=== PATIENT | male | born 1950 | race Caucasian/White ===

== ENCOUNTER 2018-11-06 12:06 | Inpatient (IN) | payer MEDICARE, BC ==
--- OUTSIDE RECORDS SUMMARY | 2018-11-06 12:32 | XMS REPORT | Continuity of Care Document ---
:1950 External Reference #:[id number] Author Name Covert, Shannon Care Team Providers Name Role Phone Gurpreet Gray D.O. Primary Care Physician Unavailable Payers Date Identification Numbers Payment Provider Subscriber Policy Number: [id number] Medicare Jayesh Wesley PayID: [id number] [address] [place] [address] Policy Number: [id number] [facility] Kori Wesley PayID: [id number] [address] [place] [address] Advance Directives Description No Information Available Problems Date Description Provider Status Onset: 11/20/2012 Aortic valve disorder Piedad Rosario D.O. Active Onset: 11/20/2012 Heart murmur [facility] Schedule Active Onset: 01/10/2013 Postsurgical Status Other Piedad Rosario D.O. Active Onset: 01/10/2013 Difficulty breathing [facility] Schedule Active Onset: 09/26/2013 Benign essential hypertension Juan Jose Gonsalez M.D. Active Onset: 09/26/2013 Dyspnea Juan Jose Gonsalez M.D. Active Onset: 09/26/2013 Preoperative cardiovascular Juan Jose Gonsalez M.D. Active examination Onset: 01/27/2015 Obstructive sleep apnea syndrome Colleen Mercado MD Active Onset: 01/27/2015 Morbid obesity Colleen Mercado MD Active Onset: 10/08/2015 Localized, primary osteoarthritis Madeline Fernandes M.D. Active Onset: 10/08/2015 Localized, primary osteoarthritis Madeline Fernandes M.D. 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 One has RA. Social History Type Date Description Comments Sex Unknown Marital Status Lives With Occupation [employer] Tobacco Use Start: Unknown Never Smoked Cigarettes Smoking Status Reviewed: 11/05/18 Never Smoked Cigarettes ETOH Use Denies alcohol use -Former alcoholic, quit drinking in 1980 Tobacco Use Start: Unknown Patient has never smoked Recreational Drug Use Denies Drug Use Exercise Type/Frequency Exercises regularly Exercise Type/Frequency [employer] Allergies, Adverse Reactions, Alerts Date Description Reaction Status Severity Comments 11/20/2012 Penicillins Active 10/12/2015 Surgical Mesh Active reaction to mesh 12/26/2017 Adhesive Active 06/21/2018 Torsemide prevent urination Active Medications Medication Date Status Form Strength Qnty SIG Indications Ordering Provider Xarelto 10/28 Active Tablets 20mg 90tab 1 by mouth Efren DBlanca /2018 s every day Greyson Bowman Flecainide 02/25 Active Tablets 50mg 180ta 1 by mouth Efren DBlanca Acetate bs twice a day Greyson Bowman Furosemide 02/22 Active Tablets 20mg 30tab 1 by mouth Joanna s every day Tashia, as needed M.DBlanca for weight gain greater than 2 lb over night or 5lbs in 5 days. Vitamin B 01/26 Active Tablets 1 by mouth Unknown every day Vitamin D 01/26 Active Capsules 2000Unit 1 by mouth every day Clindamycin HCL 05/28 Active Capsules 300mg 2caps 2 tabs 30-60 Piedad /2012 min prior Marlene to dental D.O. work Multivitamins 11/20 Active Tablets 90tab 1 po qd Other /2012 s Ordering Provider Testosterone 11/20 Active Oil 100mg/ml 10ml 2 ml every 3 Other Cyp /2012 weeks. Ordering Provider Bipap Active hs Unknown / Omeprazole Active Capsules 40mg 1 cap po [place], DR daily Gurpreet Womack D.O. Tamsulosin HCL Active Capsules 0.4mg 1 tablet po Husseini, /0000 daily MD Chance Metoprolol Active Tablets 100mg 1 by mouth Unknown Succinate ER / ER 24HR every day Ramipril Active Capsules 10mg 1 by mouth Unknown /0000 every day Clindamycin HCL 10/28 Hx Capsules 150mg 9caps one capsule Efren D by mouth Brand, - three times M.D. 11/05 a day for days Torsemide 02/20 Hx Tablets 10mg 30tab 1 by mouth Chirag s every day Joan Bryan, - Prn for M.D. 02/22 weight gain greater than 2 lb over night or 5lbs in 5 days. Metoprolol 01/23 Hx Tablets 50mg 90tab take one Qutaybeh Succinate ER 24HR s tablet by S. - mouth every haydah, 10/14 day M.D. Cyclobenzaprine 11/21 Hx Tablets 10mg 90tab 1 tablet by [id number] Sarah HCL s mouth every Bordoni, - 8 hours as [employer] 05/08 needed for pain. Lovenox 11/04 Hx Solution 30mg/0.3M 28uni 1 injection . L ts subcutaneous Bordoni, - every 24 [employer] 05/08 hours directed Percocet 11/04 Hx Tablets 5-325mg 60tab 1-2 tablets . Madeline s by mouth Dom, - every 8 M.D. 04/09 hours needed for pain Colace 11/04 Hx Capsules 100mg 90cap 1 by mouth . s up to 3 Bordoni, - times a day [employer] 05/08 as needed for constipation . Oxygen 04/13 Hx Misc 1unit Discontinue s o2 at night MD Rogelio - 05/08 Metoprolol 07/01 Hx Tablets 100mg 90tab Take 1/2 Qutaybeh Succinate ER ER 24HR s Tablet By S. - Mouth Daily. Wallace, 01/23 M.D. Diltiazem HCL ER 04/29 Hx Caps ER 120mg 90cap 1 by mouth Qutayb 12HR s every day SBlanca Gonsalez, 10/14 M.D. Diltiazem CD 07/08 Hx Caps ER 120mg 30cap 1 po qd 24HR s Ordering - Provider 04/29 Krill Oil 04/02 Hx Capsules 300mg Other [place]-3 Ordering - Provider 06/27 [place]-E 04/02 Hx Tablets 400mg 1 po qd Ordering - Provider 05/08 Metoprolol 04/02 Hx Tablets 100mg 90tab 1 po daily. Piedad Succinate ER 24HR Alma Delia Fleming.O. 07/01 Aspirin 01/29 Hx Tablets 325mg 30tab 1 po qd Alma Delia Morales.O. 11/24 Metoprolol 01/29 Hx Tablets 100mg 30tab 1 tablet by Piedad William ER 24HR s mouth daily Alma Delia Rosario.O. 04/02 Metoprolol 01/10 Hx Tablets 50mg 1 po bid Other Tar Ordering - Provider 01/29 Diclofenac 01/10 Hx Tablets 75mg 60tab 1 tab by Sheron Espino DR DR moya mouth twice Ordering - a day prn Provider 11/23 Furosemide 01/10 Hx Tablets 40mg 10tab 1 tablets by Piedad s mouth every Marlene, - other day D.O. 01/29 Ibuprofen 11/20 Hx Tablets 800mg 90tab po tid prn Other s Ordering - Provider 01/29 Metoprolol 11/20 Hx Tablets 25mg 30tab 1 po qd Piedad Succinate ER ER 24HR Alma Delia FlemingO. 01/10 Fish Oil Hx Capsules 1000mg 1 daily Unknown /0000 - 04/02 Aspirin Hx Chewtabs 81mg 1 by mouth Unknown /0000 every day ( - On Hold) 05/08 Celecoxib Hx Capsules 200mg once daily Unknown - Colace Hx Unknown / - 06/08 Pradaxa Hx Capsules 150mg 1 cap by Unknown /0000 mouth twice - a day 10/14 Colchicine Hx Tablets 0.6mg take 2 tabs Unknown /0000 by mouth - once then 11/05 take aditional tab1 hour later as needed. Medications Administered in Office Medication Date Status Form Strength Qnty SIG Indications Ordering Provider Depomedrol Administered Injection Roula 40MG 018 Deonte, RPA-C Depomedrol Administered Injection Madeline 40MG 016 Greyson Fernandes Depomedrol Administered Injection Madeline 40MG 016 Greyson Fernandes Immunizations Description No Information Available Vital Signs Date Vital Result Comment 11/05/2018 12:58pm Height 67 inches 5'7" Weight 266.00 lb with shoes Heart Rate 60 /min BP Systolic Sitting 130 mmHg Rue, large cuff BP Diastolic Sitting 78 mmHg Rue, large cuff Respiratory Rate 16 /min BMI (Body Mass Index) 41.7 kg/m2 10/15/2018 1:49pm Height 67 inches 5'7" Weight 257.50 lb with shoes Heart Rate 64 /min BP Systolic Sitting 110 mmHg Lue, large cuff BP Diastolic Sitting 70 mmHg Lue, large cuff Respiratory Rate 16 /min BMI (Body Mass Index) 40.3 kg/m2 Ejection Fraction 55-60% echo 03/09/2017 07/31/2018 1:27pm Height 67 inches 5'7" Weight 257.00 lb Heart Rate 58 /min BP Systolic Sitting 125 mmHg LA BP Diastolic Sitting 80 mmHg LA BMI (Body Mass Index) 40.2 kg/m2 06/21/2018 11:07am Height 67 inches 5'7" Weight 250.00 lb Heart Rate 56 /min regular BP Systolic Sitting 115 mmHg LA reg cuff BP Diastolic Sitting 70 mmHg LA reg cuff BP Systolic Standing 110 mmHg LA reg cuf BP Diastolic Standing 70 mmHg LA reg cuf Respiratory Rate 18 /min BMI (Body Mass Index) 39.2 kg/m2 05/16/2018 11:39am Height 67 inches 5'7" Weight 250.25 lb Heart Rate 66 /min BP Systolic Sitting 112 mmHg Rue large cuff BP Diastolic Sitting 66 mmHg Rue large cuff Respiratory Rate 18 /min O2 % BldC Oximetry 96 % On Ra BMI (Body Mass Index) 39.2 kg/m2 04/18/2018 11:06am Height 67 inches 5'7" Weight 253.00 lb BP Systolic 124 mmHg BP Diastolic 77 mmHg Respiratory Rate 16 /min Pain Level 5 BMI (Body Mass Index) 39.6 kg/m2 04/18/2018 11:03am Height 67 inches 5'7" 04/03/2018 2:52pm Height 67 inches 5'7" Weight 253.75 lb Heart Rate 80 /min BP Systolic 134 mmHg BP Diastolic 60 mmHg BMI (Body Mass Index) 39.7 kg/m2 Ejection Fraction 55-60% echo 03/09/17 02/05/2018 1:03pm Height 67 inches 5'7" Weight 252.00 lb w/ shoes Heart Rate 74 /min BP Systolic Sitting 126 mmHg lue lg cuff BP Diastolic Sitting 82 mmHg lue lg cuff BMI (Body Mass Index) 39.5 kg/m2 12/26/2017 10:36am Height 67 inches 5'7" Weight 253.00 lb without shoes Heart Rate 60 /min BP Systolic Sitting 136 mmHg Lue lrg cuff BP Diastolic Sitting 80 mmHg Lue lrg cuff BP Systolic Standing 134 mmHg Lue lrg cuff BP Diastolic Standing 80 mmHg Lue lrg cuff Respiratory Rate 18 /min BMI (Body Mass Index) 39.6 kg/m2 Ejection Fraction 55-60% 03/09/2017 10/15/2017 3:46pm Height 67 inches 5'7" Weight 248.00 lb w/shoes Heart Rate 66 /min BP Systolic Sitting 110 mmHg LA lg cuff BP Diastolic Sitting 70 mmHg LA lg cuff BMI (Body Mass Index) 38.8 kg/m2 Ejection Fraction 55-60% Echo 03/09/17 07/27/2017 4:30pm Height 67 inches 5'7" Weight 269.75 lb Heart Rate 64 /min BP Systolic Sitting 144 mmHg LA, large BP Diastolic Sitting 86 mmHg LA, large BMI (Body Mass Index) 42.2 kg/m2 Ejection Fraction 55%-60% 03/09/17 echo 07/27/2017 4:26pm Height 67 inches 5'7" Weight 269.00 lb w/ shoes Respiratory Rate 16 /min BMI (Body Mass Index) 42.1 kg/m2 Ejection Fraction 55-60% as of 03/09/17 echo 07/17/2017 10:58am Height 67 inches 5'7" Weight 267.00 lb Heart Rate 69 /min BP Systolic Sitting 118 mmHg Lue large cuff BP Diastolic Sitting 82 mmHg Lue large cuff BP Systolic Standing 104 mmHg Lue BP Diastolic Standing 80 mmHg Lue Respiratory Rate 16 /min BMI (Body Mass Index) 41.8 kg/m2 Ejection Fraction 55-60% 03/09/17 05/10/2017 11:27am Height 67 inches 5'7" Weight 262.00 lb w/ shoes Heart Rate 64 /min reg BP Systolic Sitting 114 mmHg Lue, lg cuff BP Diastolic Sitting 70 mmHg Lue, lg cuff Respiratory Rate 16 /min O2 % BldC Oximetry 93 % on Ra BMI (Body Mass Index) 41.0 kg/m2 01/23/2017 3:47pm Height 67 inches 5'7" Weight 257.00 lb with shoes Heart Rate 80 /min BP Systolic Sitting 120 mmHg LA lrg cuff BP Diastolic Sitting 82 mmHg LA lrg cuff BMI (Body Mass Index) 40.2 kg/m2 Ejection Fraction 55% - 60% echo 06/27/16 07/12/2016 3:13pm Height 67 inches 5'7" Heart Rate 69 /min BP Systolic Sitting 126 mmHg BP Diastolic Sitting 68 mmHg Respiratory Rate 16 /min O2 % BldC Oximetry 97 % 06/09/2016 1:59pm Height 67 inches 5'7" Weight 266.00 lb with shoes Heart Rate 70 /min BP Systolic Sitting 138 mmHg LA lrg cuff BP Diastolic Sitting 82 mmHg LA lrg cuff BMI (Body Mass Index) 41.7 kg/m2 Ejection Fraction 55% - 60% echo 12/01/14 05/15/2016 10:31am Heart Rate 58 /min BP Systolic 130 mmHg BP Diastolic 82 mmHg Pain Level 8 05/09/2016 1:10pm Height 67 inches 5'7" Weight 263.12 lb Heart Rate 89 /min BP Systolic Sitting 134 mmHg BP Diastolic Sitting 76 mmHg Respiratory Rate 16 /min O2 % BldC Oximetry 97 % BMI (Body Mass Index) 41.2 kg/m2 02/04/2016 11:32am Height 67 inches 5'7" Weight 266.00 lb Pain Level 8 BMI (Body Mass Index) 41.7 kg/m2 12/31/2015 11:41am Height 67 inches 5'7" Weight 266.00 lb Pain Level 2 BMI (Body Mass Index) 41.7 kg/m2 12/06/2015 11:09am Height 67 inches 5'7" Weight 266.00 lb Pain Level 5 0 in hip, 5 in groin BMI (Body Mass Index) 41.7 kg/m2 12/01/2015 10:52am Height 67 inches 5'7" Weight 266.00 lb Pain Level 4 BMI (Body Mass Index) 41.7 kg/m2 11/22/2015 2:04pm Height 67 inches 5'7" Weight 266.00 lb Body Temperature 99.0 F Pain Level 5 BMI (Body Mass Index) 41.7 kg/m2 11/05/2015 10:47am Height 67 inches 5'7" Weight 266.00 lb Heart Rate 58 /min BP Systolic Sitting 109 mmHg BP Diastolic Sitting 69 mmHg Pain Level 5 BMI (Body Mass Index) 41.7 kg/m2 10/12/2015 9:31am Height 67 inches 5'7" Weight 266.75 lb with shoes Heart Rate 60 /min BP Systolic Sitting 130 mmHg LA lg cuff BP Diastolic Sitting 84 mmHg LA lg cuff Respiratory Rate 16 /min BMI (Body Mass Index) 41.8 kg/m2 Ejection Fraction 55-60% date 12/01/14 ECHO 10/08/2015 2:20pm Height 67 inches 5'7" Weight 265.00 lb Heart Rate 62 /min BP Systolic 100 mmHg BP Diastolic 60 mmHg BMI (Body Mass Index) 41.5 kg/m2 06/28/2015 2:36pm Height 67 inches 5'7" Weight 263.75 lb Heart Rate 62 /min BP Systolic Sitting 132 mmHg LA, reg BP Diastolic Sitting 90 mmHg LA, reg BMI (Body Mass Index) 41.3 kg/m2 Ejection Fraction 55%-60% 12/01/14 echo 05/10/2015 1:10pm Height 67 inches 5'7" Weight 261.00 lb Heart Rate 61 /min BP Systolic 110 mmHg BP Diastolic 72 mmHg Respiratory Rate 12 /min O2 % BldC Oximetry 97 % BMI (Body Mass Index) 40.9 kg/m2 02/26/2015 11:29am Height 67 inches 5'7" Weight 271.00 lb Heart Rate 86 /min BP Systolic 124 mmHg BP Diastolic 90 mmHg Respiratory Rate 16 /min O2 % BldC Oximetry 98 % BMI (Body Mass Index) 42.4 kg/m2 Neck Circumference in inches 19.75 01/27/2015 11:49am Height 67 inches 5'7" Weight 271.12 lb Heart Rate 73 /min BP Systolic Sitting 138 mmHg BP Diastolic Sitting 82 mmHg Respiratory Rate 20 /min Body Temperature 98.5 F O2 % BldC Oximetry 98 % BMI (Body Mass Index) 42.5 kg/m2 Neck Circumference in [facility] 19.75 12/24/2014 10:30am Height 67 inches 5'7" Weight 276.00 lb w/shoes Heart Rate 66 /min BP Systolic Sitting 126 mmHg LA lg cuff BP Diastolic Sitting 84 mmHg LA lg cuff Respiratory Rate 12 /min BMI (Body Mass Index) 43.2 kg/m2 Ejection Fraction 55-60 echo 12/01/14 11/24/2014 2:37pm Height 67 inches 5'7" Weight 275.75 lb w/shoes Heart Rate 64 /min BP Systolic Sitting 136 mmHg LA lg cuff BP Diastolic Sitting 88 mmHg LA lg cuff Respiratory Rate 12 /min BMI (Body Mass Index) 43.2 kg/m2 04/29/2014 2:18pm Height 67 inches 5'7" Weight 292.25 lb Heart Rate 74 /min BP Systolic Sitting 132 mmHg reg, left BP Diastolic Sitting 78 mmHg reg, left BMI (Body Mass Index) 45.8 kg/m2 09/26/2013 10:19am Height 67 inches 5'7" Weight 285.00 lb Heart Rate 84 /min BP Systolic Sitting 132 mmHg BP Diastolic Sitting 90 mmHg BMI (Body Mass Index) 44.6 kg/m2 07/17/2013 3:03pm Height 67 inches 5'7" Weight 289.00 lb Heart Rate 72 /min BP Systolic 142 mmHg BP Diastolic 90 mmHg BMI (Body Mass Index) 45.3 kg/m2 04/02/2013 11:30am Height 67 inches 5'7" Weight 269.00 lb Heart Rate 76 /min Regular BP Systolic Sitting 100 mmHg BP Diastolic Sitting 80 mmHg BMI (Body Mass Index) 42.1 kg/m2 01/29/2013 11:46am Height 67 inches 5'7" Weight 266.50 lb Heart Rate 68 /min Regular BP Systolic Sitting 102 mmHg BP Diastolic Sitting 68 mmHg BMI (Body Mass Index) 41.7 kg/m2 01/10/2013 1:59pm Height 67 inches 5'7" Weight 261.25 lb Heart Rate 68 /min Regular BP Systolic Sitting 104 mmHg BP Diastolic Sitting 74 mmHg BMI (Body Mass Index) 40.9 kg/m2 11/20/2012 9:53am Height 67 inches 5'7" Weight 289.25 lb Heart Rate 76 /min Irregular BP Systolic Sitting 140 mmHg BP Diastolic Sitting 80 mmHg BMI (Body Mass Index) 45.3 kg/m2 Results Test Date Facility Test Result H/L Range Note Pre Cath 10/24/2018 [facility] Partial 37.4 seconds High 26.0- 36.[address] [place] [address] PTT [phone] CBC Auto 10/24/2018 [facility] White Blood 8.0 10^3/uL N 3.5- 10.[address] [place] [address] [phone] Red Blood Count 5.66 10^6/uL High 4.18-5.48 Hemoglobin 16.9 g/dL N 14.0-18.0 Hematocrit 49 % High 36-46 Mean Corpuscular Volume 87 fL N 80-94 Mean Corpuscular Hemoglobin 30 pg N 27-31 Mean Corpuscular HGB Conc 34 g/dL N 31-36 Red Cell Distribution Width 14 % N 10.5-15 Platelet Count 190 10^3/uL N 150-450 Mean Platelet Volume 7.3 fL Low 7.4-10.4 Abs Neutrophils 5.8 10^3/uL N 1.5-7.7 Abs Lymphocytes 1.4 10^3/uL N 1.0-4.8 Abs Monocytes 0.7 10^3/uL N 0-0.8 Abs Eosinophils 0.1 10^3/uL N 0-0.6 Abs Basophils 0 10^3/uL N 0-0.2 Abs Nucleated RBC 0 10^3/uL Granulocyte % 72.4 % Lymphocyte % 17.4 % Monocyte % 8.2 % Eosinophil % 1.5 % Basophil % 0.5 % Nucleated Red Blood Cells % 0.1 Inr/Protime 10/24/2018 [facility] Inr 1.02 N 0.77-1.[address] [place] [address] [phone] Basic Metabolic 10/24/2018 [facility] Sodium 136 mmol/L N 135- [address] [place] [address] [phone] Potassium 4.3 mmol/L N 3.5-5.0 Chloride 104 mmol/L N 101-111 Co2 Carbon Dioxide 22 mmol/L N 22-32 Anion Gap 10 mmol/L N 2-11 Glucose 87 mg/dL N 70-100 Blood Urea Nitrogen 25 mg/dL High 6-24 Creatinine 1.04 mg/dL N 0.67-1.17 BUN/Creatinine Ratio 24.0 High 8-20 Calcium 9.2 mg/dL N 8.6-10.3 Egfr Non- 71.2 >60 Egfr 86.2 >60 1 CBC Auto Diff 02/25/2018 [facility] White Blood 6.9 10^3/uL N 3.5-10.[address] [place] [address] [phone] Red Blood Count 5.84 10^6/uL High 4.00-5.40 Hemoglobin 17.5 g/dL N 14.0-18.0 Hematocrit 52 % N 42-52 Mean Corpuscular Volume 88 fL N 80-94 Mean Corpuscular Hemoglobin 30 pg N 27-31 Mean Corpuscular HGB Conc 34 g/dL N 31-36 Red Cell Distribution Width 14 % N 10.5-15 Platelet Count 170 10^3/uL N 150-450 Mean Platelet Volume 7.5 um3 N 7.4-10.4 Abs Neutrophils 4.9 10^3/uL N 1.5-7.7 Abs Lymphocytes 1.3 10^3/uL N 1.0-4.8 Abs Monocytes 0.6 10^3/uL N 0-0.8 Abs Eosinophils 0.1 10^3/uL N 0-0.6 Abs Basophils 0.1 10^3/uL N 0-0.2 Abs Nucleated RBC 0 10^3/uL Granulocyte % 70.6 % N 38-83 Lymphocyte % 18.4 % Low 25-47 Monocyte % 9.0 % High 0-7 Eosinophil % 1.0 % N 0-6 Basophil % 1.0 % N 0-2 Nucleated Red Blood Cells % 0.1 Laboratory test 02/25/2018 [facility] B-Type 55 pg/mL [address] [place] [address] Peptide BNP [phone] Basic Metabolic 02/25/2018 [facility] Sodium 139 mmol/L N 135- [address] [place] [address] [phone] Potassium 4.0 mmol/L N 3.5-5.0 Chloride 105 mmol/L N 101-111 Co2 Carbon Dioxide 26 mmol/L N 22-32 Anion Gap 8 mmol/L N 2-11 Glucose 103 mg/dL High 70-100 Blood Urea Nitrogen 23 mg/dL N 6-24 Creatinine 1.00 mg/dL N 0.67-1.17 BUN/Creatinine Ratio 23.0 High 8-20 Calcium 9.5 mg/dL N 8.6-10.3 Egfr Non- 74.8 >60 Egfr 90.5 >60 3 Laboratory test 02/21/2018 [facility] B-Type <pending> finding [address] [place] [address] Peptide BNP [phone] Laboratory test 07/17/2017 [facility] Magnesium 2.0 mg/dL N 1.9-[address] [place], [place] [id number] [phone] CBC Auto Diff 07/17/2017 [facility] White Blood Count 8.1 10^3/ uL N 3.5-[address] [place] [address] [phone] Red Blood Count 6.09 10^6/uL High 4.0-5.4 Hemoglobin 18.0 g/dL N 14.0-18.0 Hematocrit 53 % High 42-52 Mean Corpuscular Volume 87 fL N 80-94 Mean Corpuscular Hemoglobin 30 pg N 27-31 Mean Corpuscular HGB Conc 34 g/dL N 31-36 Red Cell Distribution Width 14 % N 10.5-15 Platelet Count 168 10^3/uL N 150-450 Mean Platelet Volume 8 um3 N 7.4-10.4 Abs Neutrophils 5.6 10^3/uL N 1.5-7.7 Abs Lymphocytes 1.7 10^3/uL N 1.0-4.8 Abs Monocytes 0.7 10^3/uL N 0-0.8 Abs Eosinophils 0.1 10^3/uL N 0-0.6 Abs Basophils 0.1 10^3/uL N 0-0.2 Abs Nucleated RBC 0.01 10^3/uL Granulocyte % 68.6 % N 38-83 Lymphocyte % 20.7 % Low 25-47 Monocyte % 8.8 % N 1-9 Eosinophil % 1.0 % N 0-6 Basophil % 0.9 % N 0-2 Nucleated Red Blood Cells % 0.1 Thyroid Panel 07/17/2017 [facility] Free T4 (Free 0.79 ng/dL N 0.61-1.12 [facility] Thyroxine) [place] [address] [phone] Thyroxine 6.29 g/mL N 6.09-12.23 TSH (Thyroid Stim Horm) 3.09 mcIU/mL N 0.34-5.60 Laboratory test 07/17/2017 [facility] Uric Acid 7.3 mg/dL N 4.4-7.6 finding [address] [place] [address] [phone] Basic Metabolic 07/17/2017 [facility] Potassium 4.1 mmol/L N 3.5-5.0 Panel [address] [place] [address] [phone] Chloride 102 mmol/L N 101-111 Co2 Carbon Dioxide 26 mmol/L N 22-32 Glucose 76 mg/dL N 70-100 Blood Urea Nitrogen 9 mg/dL N 6-24 Creatinine 0.99 mg/dL N 0.67-1.17 BUN/Creatinine Ratio 9.1 N 8-20 Calcium 9.0 mg/dL N 8.6-10.3 Egfr Non- 75.9 >60 Egfr 97.6 >60 4 Sodium 137 mmol/L N 133-145 Anion Gap 9 mmol/L N 2-11 Type & Screen 11/05/2015 [facility] Patient Blood Type A Positive N [address] [place] [address] [phone] Antibody Screen NEGATIVE N Comp Metabolic Panel 11/05/2015 [facility] Sodium 135 mmol/L N 133-145 [address] [place] [address] [phone] Potassium 3.9 mmol/L N 3.5-5.0 Chloride 101 mmol/L N 101-111 Co2 Carbon Dioxide 26 mmol/L N 22-32 Anion Gap 8 mmol/L N 2-11 Glucose 91 mg/dL N 70-100 Blood Urea Nitrogen 12 mg/dL N 6-24 Creatinine 0.97 mg/dL N 0.67-1.17 BUN/Creatinine Ratio 12.4 N 8-20 Calcium 9.3 mg/dL N 8.6-10.3 Total Protein 6.7 g/dL N 6.4-8.9 Albumin 4.5 g/dL N 3.2-5.2 Globulin 2.2 g/dL N 2-4 Albumin/Globulin Ratio 2.0 N 1-3 Total Bilirubin 1.10 mg/dL High 0.2-1.0 Alkaline Phosphatase 55 U/L N 34-104 Alt 44 U/L N 7-52 Ast 30 U/L N 13-39 Egfr Non- 77.9 N >60 Egfr 100.2 N >60 5 Laboratory test 11/05/2015 [facility] Partial 37.2 High 26.0- 36.[address] [address] PTT [phone] Inr/Protime 11/05/2015 [facility] Inr 1.05 N 0.89-1.[address] [place] [address] [phone] CBC No Diff 11/05/2015 [facility] White Blood 7.6 10^3/uL N 3.5-10.[address] [place] [address] [phone] Red Blood Count 6.03 10^6/uL High 4.0-5.4 Hemoglobin 17.5 g/dL N 14.0-18.0 Hematocrit 54 % High 42-52 Mean Corpuscular Volume 90 fL N 80-94 Mean Corpuscular Hemoglobin 29 pg N 27-31 Mean Corpuscular HGB Conc 32 g/dL N 31-36 Red Cell Distribution Width 15 % N 10.5-15 Platelet Count 186 10^3/uL N 150-450 Mean Platelet Volume 8 um3 N 7.4-10.4 Arterial Blood Gas 11/22/2012 [facility] PH Arterial 7.37 7.35-7.[address] [place] [address] [phone] Pco2 Arterial 44 mmHg 35-45 Po2 Arterial 33 mmHg Low 80-100 O2 Saturation Arterial 69.7 % Low 95-98 Base Excess Arterial -0.3 -2.0-2.0 6 Hco3 Arterial 23.7 mmol/L Arterial Blood Gas 11/22/2012 [facility] PH Arterial 7.40 7.35-7.[address] [place] [address] [phone] Pco2 Arterial 36 mmHg 35-45 Po2 Arterial 73 mmHg Low 80-100 O2 Saturation Arterial 96.9 % 95-98 Base Excess Arterial -1.9 -2.0-2.0 7 Hco3 Arterial 23.3 mmol/L Cath Panel 11/21/2012 [facility] Activated 37.9 High 22.18- 37.[address] [place] [address] Thrombo Time [phone] Inr/Protime 11/21/2012 [facility] Inr 0.94 0.87-0.[address] [place] [address] [phone] Basic 11/21/2012 [facility] Sodium 137 mmol/L 133-[address] [place] [address] [phone] Potassium 4.4 mmol/L 3.5-5.0 Chloride 104 mmol/L 101-111 Co2 Carbon Dioxide 27.0 mmol/L 22-32 Anion Gap 6.0 mmol/L 2-11 Glucose 117 mg/dL High 70-100 Blood Urea Nitrogen 18 mg/dL 6-24 Creatinine 1.00 mg/dL 0.50-1.40 BUN/Creatinine Ratio 18.0 8-20 Calcium 9.4 mg/dL 8.1-9.9 Egfr Non- 76.0 >60 Egfr 97.7 >60 8 CBC With 11/21/2012 [facility] White Blood 5.2 10^3/uL 4.8- 10.8 Manual Diff [address] [place] [address] [phone] Red Blood Count 5.33 10^6/uL 4.0-5.4 Hemoglobin 16.3 g/dL 14.0-18.0 Hematocrit 49 % 42-52 Mean Corpuscular Volume 92 fL 80-94 Mean Corpuscular Hemoglobin 31 pg 27-31 Mean Corpuscular HGB Conc 33 g/dL 31-36 Red Cell Distribution Width 14 % 10.5-15 Platelet Count 185 10^3/uL 150-450 Mean Platelet Volume 7 um3 Low 7.4-10.4 Abs Neutrophils 3.3 10^3/uL 1.5-7.7 Abs Lymphocytes 1.1 10^3/uL 1.0-4.8 Abs Monocytes 0.6 10^3/uL 0-0.8 Abs Eosinophils 0.1 10^3/uL 0-0.6 Abs Basophils 0.1 10^3/uL 0-0.2 Abs Nucleated RBC 0 10^3/uL Neutrophil % 65 % 38-83 Lymphocytes % 26 % 25-47 Monocytes % 6 % 0-13 Eosinophils % 2 % 0-6 Reactive Lymph % 1 % 0-6 RBC Morphology Normal Normal 1 Because ethnic data is not always readily available, this report includes an eGFR for both -Americans and non- Americans. The National Kidney Disease Education Program (NKDEP) does not endorse the use of the MDRD equation for patients that are not between the ages of 18 and 70, are , have extremes of body size, muscle mass, or nutritional status, or are non- or non-. According to the National Kidney Foundation, irrespective of diagnosis, the stage of the disease is based on the level of kidney function: Stage Description GFR(mL/min/1.73 m(2)) 1 Kidney damage with normal or decreased GFR 90 2 Kidney damage with mild decrease in GFR 60-89 3 Moderate decrease in GFR 30-59 4 Severe decrease in GFR 15-29 5 Kidney failure <15 (or dialysis) 2 >100 to <200 pg/mL: likely compensated congestive heart failure (CHF) 200 to 400 pg/mL: likely moderate CHF >400 pg/mL: likely moderate to severe CHF 3 Because ethnic data is not always readily available, this report includes an eGFR for both -Americans and non- Americans. The National Kidney Disease Education Program (NKDEP) does not endorse the use of the MDRD equation for patients that are not between the ages of 18 and 70, are , have extremes of body size, muscle mass, or nutritional status, or are non- or non-. According to the National Kidney Foundation, irrespective of diagnosis, the stage of the disease is based on the level of kidney function: Stage Description GFR(mL/min/1.73 m(2)) 1 Kidney damage with normal or decreased GFR 90 2 Kidney damage with mild decrease in GFR 60-89 3 Moderate decrease in GFR 30-59 4 Severe decrease in GFR 15-29 5 Kidney failure <15 (or dialysis) 4 Because ethnic data is not always readily available, this report includes an eGFR for both -Americans and non- Americans. The National Kidney Disease Education Program (NKDEP) does not endorse the use of the MDRD equation for patients that are not between the ages of 18 and 70, are , have extremes of body size, muscle mass, or nutritional status, or are non- or non-. According to the National Kidney Foundation, irrespective of diagnosis, the stage of the disease is based on the level of kidney function: Stage Description GFR(mL/min/1.73 m(2)) 1 Kidney damage with normal or decreased GFR 90 2 Kidney damage with mild decrease in GFR 60-89 3 Moderate decrease in GFR 30-59 4 Severe decrease in GFR 15-29 5 Kidney failure <15 (or dialysis) 5 Because ethnic data is not always readily available, this report includes an eGFR for both -Americans and non- Americans. The National Kidney Disease Education Program (NKDEP) does not endorse the use of the MDRD equation for patients that are not between the ages of 18 and 70, are , have extremes of body size, muscle mass, or nutritional status, or are non- or non-. According to the National Kidney Foundation, irrespective of diagnosis, the stage of the disease is based on the level of kidney function: Stage Description GFR(mL/min/1.73 m(2)) 1 Kidney damage with normal or decreased GFR 90 2 Kidney damage with mild decrease in GFR 60-89 3 Moderate decrease in GFR 30-59 4 Severe decrease in GFR 15-29 5 Kidney failure <15 (or dialysis) 6 Reference ranges based on room air. 7 Reference ranges based on room air. 8 Because ethnic data is not always readily available, this report includes an eGFR for both -Americans and non- Americans. The National Kidney Disease Education Program (NKDEP) does not endorse the use of the MDRD equation for patients that are not between the ages of 18 and 70, are , have extremes of body size, muscle mass, or nutritional status, or are non- or non-. According to the National Kidney Foundation, irrespective of diagnosis, the stage of the disease is based on the level of kidney function: Stage Description GFR(mL/min/1.73 m(2)) 1 Kidney damage with normal or decreased GFR 90 2 Kidney damage with mild decrease in GFR 60-89 3 Moderate decrease in GFR 30-59 4 Severe decrease in GFR 15-29 5 Kidney failure <15 (or dialysis) Procedures Date Code Description Status 10/28/2018 05561 Moderate Sedation Services; Same Phys Intl 15 Mins; PT >=5 Completed Years 10/28/2018 21630 Perm Pacemaker Av Sequential Atrial And Ventricular Completed 10/15/2018 82268 EKG Tracing & Interpretation Completed 09/03/2018 67928 Implantable Cardio System Loop Recorder Sys Remota Data Completed Acquistio 09/03/2018 50126 Interrogation Dev Loop Recorder Incl Physician Completed Analysis,Rev,Repor 08/03/2018 11235 Implantable Cardio System Loop Recorder Sys Remota Data Completed Acquistio 08/03/2018 40129 Interrogation Dev Loop Recorder Incl Physician Completed Analysis,Rev,Repor 07/03/2018 77945 Implantable Cardio System Loop Recorder Sys Remota Data Completed Acquistio 07/03/2018 24300 Interrogation Dev Loop Recorder Incl Physician Completed Analysis,Rev,Repor 06/21/2018 80875 EKG Tracing & Interpretation Completed 06/02/2018 01049 Implantable Cardio System Loop Recorder Sys Remota Data Completed Acquistio 06/02/2018 06425 Interrogation Dev Loop Recorder Incl Physician Completed Analysis,Rev,Repor 05/02/2018 08257 Implantable Cardio System Loop Recorder Sys Remota Data Completed Acquistio 05/02/2018 90086 Interrogation Dev Loop Recorder Incl Physician Completed Analysis,Rev,Repor 04/18/2018 93769 Inject Tendon Sheath Or Ligament Aponeurosis Eg Plantar Completed Fascia 04/03/2018 06448 EKG Tracing & Interpretation Completed 04/01/2018 34061 Implantable Cardio System Loop Recorder Sys Remota Data Completed Acquistio 04/01/2018 07026 Interrogation Dev Loop Recorder Incl Physician Completed Analysis,Rev,Repor 03/01/2018 95553 Implantable Cardio System Loop Recorder Sys Remota Data Completed Acquistio 03/01/2018 33750 Interrogation Dev Loop Recorder Incl Physician Completed Analysis,Rev,Repor 02/25/2018 04980 Moderate Sedation Services; Same Phys Intl 15 Mins; PT >=5 Completed Years 02/25/2018 54661 EKG, Interpretation Only Completed 02/25/2018 06099 EKG, Interpretation Only Completed 02/25/2018 98671 Cardioversion Completed 01/28/2018 07277 Implant Cardiac Loop Recorder Completed 11/28/2017 94541 Holter Monitor Review (24 hr) review & interp only Completed 10/15/2017 34604 EKG Tracing & Interpretation Completed 07/27/2017 47536 EKG Tracing & Interpretation Completed 07/25/2017 35509 Holter Monitor Review (24 hr) review & interp only Completed 07/17/2017 79301 EKG Tracing & Interpretation Completed 07/17/2017 03028 EKG Tracing & Interpretation Completed 03/09/2017 33489 ECHO Transthoracic, Real-Time 2D With Doppler And Color Completed Flow 01/23/2017 87117 EKG Tracing & Interpretation Completed 06/29/2016 48037 Holter Monitor Review (24 hr) review & interp only Completed 06/27/2016 19012 ECHO Transthoracic, Real-Time 2D With Doppler And Color Completed Flow 06/27/2016 09793 ECG Monitor/Recording W/Visual Superimposition Scanning Completed 06/09/2016 86476 EKG Tracing & Interpretation Completed 05/15/2016 17091 Inject/Drain Joint/Bursa Major W/O US Completed 11/11/2015 93646 THR Total Hip Replacement Completed 11/11/2015 33997 THR Total Hip Replacement Completed 10/12/2015 12580 EKG Tracing & Interpretation Completed 10/08/2015 22186 Inject/Drain Joint/Bursa Major W/O US Completed 06/28/2015 25629 EKG Tracing & Interpretation Completed 01/28/2015 06267 Polysomnography Sleep Staging 4+ Parameters W/Cpap Completed 12/07/2014 89376 Holter Monitor Review (24 hr) review & interp only Completed 12/01/2014 05593 ECHO Transthorasic Realtime 2D W Doppler & Color Flow Hosp Completed 11/24/2014 83679 EKG Tracing & Interpretation Completed 04/29/2014 47869 EKG Tracing & Interpretation Completed 09/26/2013 25781 ECHO Transthoracic, Real-Time 2D With Doppler And Color Completed Flow 09/26/2013 66487 EKG Tracing & Interpretation Completed 01/10/2013 83079 ECHO Transthoracic, Real-Time 2D With Doppler And Color Completed Flow 01/10/2013 12452 EKG Tracing & Interpretation Completed 11/22/2012 42996 RT & lt Cath W/Injx HRT Art&L Ventr Img S&I Completed 11/22/2012 84549 Left Heart Cath. Incl S/I Coronaries, Angio S/I V Gram If Completed Done 11/20/2012 93468 ECHO Transthoracic, Real-Time 2D With Doppler And Color Completed Flow 11/20/2012 68952 EKG Tracing & Interpretation Completed Encounters Type Date Location Provider Dx Diagnosis Office Visit 10/15/2018 [facility] Efren Arita I48.0 Paroxysmal atrial 1:30p Of [place] AT [facility] Greyson Bowman fibrillation Z95.2 Presence of prosthetic heart valve I49.5 Sick sinus syndrome Office Visit 07/31/2018 1:30p [facility] Efren Arita I48.0 Paroxysmal atrial Of Pennie Bowman M.D. fibrillation R00.2 Palpitations Z95.2 Presence of prosthetic heart valve Office Visit 06/21/2018 11:00a [facility] Aditi SBlanca I48.0 Paroxysmal atrial Of Pennie Miranda N.Rory fibrillation R00.2 Palpitations R94.31 Abnormal electrocardiogram [ECG] [EKG] Z95.4 Presence of other heart-valve replacement Office Visit 05/16/2018 11:30a Pulmonology And Colleen G47.33 Obstructive sleep Sleep Services Of MD Rogelio apnea (adult) [place] (pediatric) E66.01 Morbid (severe) obesity due to excess calories Office Visit 04/18/2018 10:45a Orthopedic Roula Clemons, M65.351 Trigger finger, Services Of RPA-C right theodore C.M.ABlanca finger Office Visit 04/03/2018 2:45p [place] Stacy Arita Z95.818 Presence of Of Pennie Bowman M.D. other cardiac implants and grafts I48.0 Paroxysmal atrial fibrillation Z95.4 Presence of other heart-valve replacement Office Visit 12/26/2017 10:45a [facility] Efren Arita I48.92 Unspecified Of Pennie Bowman M.D. atrial flutter Office Visit 10/15/2017 4:40p [facility] Qutaybeh S. 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 E66.01 Morbid (severe) obesity due to excess calories G47.33 Obstructive sleep apnea (adult) (pediatric) Office Visit 07/17/2017 11:00a [facility] Lucina Obrien, G47.33 Obstructive sleep Of [facility] apnea (adult) (pediatric) E66.01 Morbid (severe) obesity due to excess calories I71.9 Aortic aneurysm of unspecified site, without rupture Z95.2 Presence of prosthetic heart valve I48.92 Unspecified atrial flutter M10.00 Idiopathic gout, unspecified site Office Visit 05/10/2017 11:45a Pulmonology And Colleen G47.33 Obstructive sleep Sleep Services Of MD Rogelio apnea (adult) [facility] (pediatric) E66.01 Morbid (severe) obesity due to excess calories Z68.41 Body mass index (BMI) 40.0-44.9, adult Office Visit 01/23/2017 [place] Qutaybeh S. I35.0 Nonrheumatic 4:00p Cardiology Greyson Gonsalez aortic (valve) stenosis I71.9 Aortic aneurysm of unspecified site, without rupture R42 Dizziness and giddiness E66.01 Morbid (severe) obesity due to excess calories Z68.41 Body mass index (BMI) 40.0-44.9, adult G47.33 Obstructive sleep apnea (adult) (pediatric) Office Visit 07/12/2016 Pulmonology And Antonette G47.33 Obstructive sleep 3:15p Sleep Services Of ROBI Sanchez RN, apnea (adult) [facility] [employer] (pediatric) E66.01 Morbid (severe) obesity due to excess calories Office Visit 06/09/2016 [place] Juan Jose S. G47.33 Obstructive sleep 2:20p Cardiology Greyson Gonsalez apnea (adult) (pediatric) E66.01 Morbid (severe) obesity due to excess calories I35.0 Nonrheumatic aortic (valve) stenosis I10 Essential (primary) hypertension R06.02 Shortness of breath I49.1 Atrial premature depolarization R94.31 Abnormal electrocardiogram [ECG] [EKG] Office Visit 05/15/2016 10:30a Orthopedic Services Madeline Fernandes, M25.562 Pain in left Of C.M.A. M.D. knee M17.12 Unilateral primary osteoarthritis, left knee Z96.641 Presence of right artificial hip joint M25.851 Other specified joint disorders, right hip Office Visit 05/09/2016 1:00p Pulmonology And Colleen G47.33 Obstructive sleep Sleep Services Of MD Rogelio apnea (adult) [facility] (pediatric) E66.01 Morbid (severe) obesity due to excess calories Office Visit 11/13/2015 1:59p [facility] Cinthya Phillips, Z96.641 Presence of Assoc,pc N.P. 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 G47.33 Obstructive sleep 9:40a Cardiology Greyson Gonsalez apnea (adult) (pediatric) E66.01 Morbid (severe) obesity due to excess calories I35.0 Nonrheumatic aortic (valve) stenosis I10 Essential (primary) hypertension Office Visit 10/08/2015 Orthopedic Madeline M17.12 Unilateral primary 1:30p Services Of Greyson Fernandes osteoarthritis, left C.M.A. knee M16.11 Unilateral primary osteoarthritis, right hip M25.551 Pain in right hip M25.562 Pain in left knee M25.462 Effusion, left knee Office Visit 06/28/2015 [place] Juan Jose Villarreal G47.33 Obstructive sleep 2:40p Cardiology Greyson Gonsalez apnea (adult) (pediatric) E66.01 Morbid (severe) obesity due to excess calories I35.0 Nonrheumatic aortic (valve) stenosis I10 Essential (primary) hypertension Z95.2 Presence of prosthetic heart valve Office Visit 05/10/2015 1:15p Pulmonology And Colleen G47.33 Obstructive sleep Sleep Services Of MD Rogelio apnea (adult) [facility] (pediatric) E66.01 Morbid (severe) obesity due to excess calories Office Visit 02/26/2015 11:30a Pulmonology And Colleen 327.23 Obstructive Sleep Sleep Services Of MD Rogelio Apnea Adult & Icer Hand Pediatric 278.01 Obesity Morbid Office Visit 01/27/2015 11:30a Pulmonology And Colleen 327.23 Obstructive Sleep Sleep Services Of MD Rogelio Apnea Adult & Icer Hand Pediatric 278.01 Obesity Morbid Office Visit 12/24/2014 10:30a [facility] MARGOT Ceron 424.1 Aortic Valve Disorder 401.1 Hypertension Benign 785.1 Palpitations 427.61 Premature Beats Supraventricular 327.23 Obstructive Sleep Apnea Adult & Pediatric Office Visit 11/24/2014 2:40p [facility] Juan Jose Villarreal 424.1 Aortic Valve Greyson Gonsalez Disorder 401.1 Hypertension Benign 278.00 Obesity Unspec 785.2 Murmur Cardiac Undiagnosed 786.05 Shortness Of Breath 785.1 Palpitations Office Visit 04/29/2014 2:40p [facility] Juan Jose Villarreal 424.1 Aortic Valve Greyson Gonsalez Disorder 401.1 Hypertension Benign 278.00 Obesity Unspec 785.2 Murmur Cardiac Undiagnosed Office Visit 09/26/2013 10:20a [facility] Juan Jose Villarreal 424.1 Aortic Valve Greyson Gonsalez Disorder 401.1 Hypertension Benign 278.00 Obesity Unspec 786.05 Shortness Of Breath 785.1 Palpitations V72.81 Examination Preoperative Cardiovascular Office Visit 07/17/2013 2:20p [facility] Piedad 785.1 Palpitations AT [facility] Jm Rosario 424.1 Aortic Valve Disorder 401.1 Hypertension Benign 278.00 Obesity Unspec Office Visit 04/02/2013 11:20a [facility] Piedad 424.1 Aortic Valve Marlene DBlancaO. Disorder V45.89 Postsurgical Status Other 401.1 Hypertension Benign 278.00 Obesity Unspec 715.96 Osteoarthrosis Unspec Genlzd Or Localized Lower Leg Office Visit 01/29/2013 [place] Piedad V45.89 Postsurgical 11:20a Cardiology Jm Rosario Status Other 424.1 Aortic Valve Disorder 401.1 Hypertension Benign 278.00 Obesity Unspec 715.96 Osteoarthrosis Unspec Genlzd Or Localized Lower Leg Office Visit 01/10/2013 [place] Piedad V45.89 Postsurgical 2:00p Cardiology Jm Rosario Status Other 424.1 Aortic Valve Disorder 401.1 Hypertension Benign 278.00 Obesity Unspec 780.57 Unspecified Sleep Apnea 715.96 Osteoarthrosis Unspec Genlzd Or Localized Lower Leg Office Visit 11/20/2012 10:20a [facility] Piedad 424.1 Aortic Valve Marlene DBlancaOBlanca Disorder V72.81 Examination Preoperative Cardiovascular 401.9 Hypertension Unspec 278.00 Obesity Unspec 780.57 Unspecified Sleep Apnea Office Visit 10/24/2012 Orthopedic Cricket 715.96 Osteoarthrosis 8:00a Services Of Greyson Verma Unspec Genlzd Or C.M.A. Localized Lower Leg Plan of Treatment Future Appointment(s):11/20/2018 2:45 pm - Efren Bowman M.D. at [facility] Of [facility]11/19/2018 1:00 pm - Ica Pacer Schedule at [facility] Of [facility]05/19/2019 11:30 am - Colleen Mercado MD at [facility] Sleep Services Of [facility]11/05/2018 - Efren Bowman M.D.I49.5 Sick sinus skrxnekdI56.0 Paroxysmal atrial uiimjobftubxH78.2 Presence of prosthetic heart [id number] HeadacheNew Xrays:CT Brain W/Wo, Ordered: 11/05/18Follow up:3 weeksRecommendations:Stop Neema
--- OUTSIDE RECORDS SUMMARY | 2018-11-06 12:32 | XMS REPORT | Continuity of Care Document ---
:1950 External Reference #:[id number] Author Name Beba Bello Care Team Providers Name Role Phone Gurpreet Gray D.O. Primary Care Physician Unavailable Payers Date Identification Numbers Payment Provider Subscriber Policy Number: [id number] Medicare Jayesh Wesley PayID: [id number] [address] [place] [address] Policy Number: [id number] [facility] Kori Wesley PayID: [id number] [address] [place] [address] Advance Directives Description No Information Available Problems [...] Unknown Never Smoked Cigarettes Smoking Status Reviewed: 10/15/18 Never Smoked Cigarettes ETOH Use Denies alcohol [...] Form Strength Qnty SIG Indications Ordering Provider Flecainide 02/25 Active Tablets 50mg 180ta 1 by mouth Efren Arita Acetate bs twice a day Greyson Bowman Furosemide 02/22 Active Tablets 20mg 30tab 1 by mouth Joanna s every day Camas, as needed M.D. for weight gain greater than 2 lb over night or 5lbs in 5 days. Vitamin B 01/26 Active Tablets 1 by mouth Unknown every day Vitamin D 01/26 Active Capsules 2000Unit 1 by mouth every day Clindamycin HCL 05/28 Active Capsules 300mg 2caps 2 tabs 30-60 Piedad min prior Marlene, to dental D.O. work Multivitamins 11/20 Active Tablets 90tab 1 po qd Other s Ordering Provider Testosterone 11/20 Active Oil 100mg/ml 10ml 2 ml every 3 Other Cypionate /2012 weeks. Ordering Provider Bipap Active hs Unknown Omeprazole Active Capsules 40mg 1 cap po Marina, DR daily Gurpreet Womack D.O. Tamsulosin HCL Active Capsules 0.4mg 1 tablet po Husseini, daily MD Chance Metoprolol Active Tablets 100mg 1 by mouth Unknown Succinate ER ER 24HR every day Ramipril Active Capsules 10mg 1 by mouth Unknown /0000 every day Colchicine Active Tablets 0.6mg take 2 tabs Unknown /0000 by mouth once then take 1 aditional tab1 hour later as needed. Torsemide 02/20 Hx Tablets 10mg 30tab 1 by mouth s every day Joan Bryan, - Prn for M.D. 02/22 weight gain greater than 2 lb over night or 5lbs in 5 days. Metoprolol 01/23 Hx Tablets 50mg 90tab take one Qutaybeh Succinate ER 24HR s tablet by S. - mouth every haydah, 10/14 day .D. 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 Lovenox 11/04 Hx Solution 30mg/0.3M 28uni 1 injection L ts subcutaneous Bordoni, - every 24 [employer] CUTTING OPERATOR 05/08 hours directed Percocet 11/04 Hx Tablets 5-325mg 60tab 1-2 tablets s by mouth Dom, - every 8 M.D. 04/09 hours needed for pain Colace 11/04 Hx Capsules 100mg 90cap 1 by mouth be s up to 3 Bordoni, - times a day [employer] CUTTING OPERATOR 05/08 as needed for constipation . Oxygen 04/13 Hx Misc 1unit Discontinue Colleen /2015 s o2 at night MD Rogelio - 05/08 Metoprolol 07/01 Hx Tablets 100mg 90tab Take 1/2 Qutaybeh Succinate ER 24HR s Tablet By S. - Mouth Daily. Wallace, 01/23 M.D. Diltiazem HCL ER 04/29 Hx Caps ER 120mg 90cap 1 by mouth Qutaybeh 12HR s every day S. - Wallace, 10/14.D. /2017 Diltiazem CD 07/08 Hx Caps ER 120mg 30cap 1 po qd Other 24HR s Ordering - Provider 04/29 Krill Oil 04/02 Hx Capsules 300mg Other [place]-3 Ordering - Provider 06/27 Chandler-E 04/02 Hx Tablets 400mg 1 po qd Ordering - Provider 05/08 Metoprolol 04/02 Hx Tablets 100mg 90tab 1 po daily. Piedad Succinate ER ER 24HR Alma Delia Fleming.OBlanca 07/01 Aspirin 01/29 Hx Tablets 325mg 30tab 1 po qd Alma Delia Morales.O. 11/24 Metoprolol 01/29 Hx Tablets 100mg 30tab 1 tablet by Piedad Succinate ER 24HR s mouth daily Alma Delia RosarioOBlanca 04/02 Metoprolol 01/10 Hx Tablets 50mg 1 po bid Other Tartrate Ordering - Provider 01/29 Diclofenac 01/10 Hx Tablets 75mg 60tab 1 tab by Sheron Sodium DR moya mouth twice Ordering - a day prn Provider 11/23 Furosemide 01/10 Hx Tablets 40mg 10tab 1 tablets by Piedad s mouth every Marlene, - other day D.O. 01/29 Ibuprofen 11/20 Hx Tablets 800mg 90tab po tid prn Other s Ordering - Provider 01/29 Metoprolol 11/20 Hx Tablets 25mg 30tab 1 po qd Piedad Succinate ER ER 24HR Alma Delia Fleming.O. 01/10 Fish Oil Hx Capsules 1000mg 1 daily Unknown /0000 - 04/02 Aspirin Hx Chewtabs 81mg 1 by mouth Unknown /0000 every day ( - On Hold) 05/08 Celecoxib 00 Hx Capsules 200mg once daily Unknown /0000 - Colace 00/00 Hx Unknown /0000 - 06/08 Pradaxa Hx Capsules 150mg 1 cap by Unknown /0000 mouth twice - a day 10/14 Medications Administered in Office Medication Date Status Form Strength Qnty SIG Indications Ordering Provider Depomedrol Administered Injection Roula 40MG 018 Bitting, RPA-C Depomedrol Administered Injection Madeline 40MG 016 Greyson Fernandes Depomedrol Administered Injection Madeline 40MG 016 Greyson Fernandes Immunizations Description No Information Available Vital Signs Date Vital Result Comment 10/15/2018 1:49pm Height 67 inches 5'7" Weight [...] Mass Index) 42.5 kg/m2 Neck Circumference in inches 19.75 12/24/2014 10:30am Height 67 inches 5'7" [...] Date Facility Test Result H/L Range Note Basic Metabolic 02/25/2018 [facility] Sodium 139 mmol/L N 135- [address] [place] [address] [phone] Potassium 4.0 mmol/L N 3.5-5.0 Chloride 105 mmol/L N 101-111 Co2 Carbon Dioxide 26 mmol/L N 22-32 Anion Gap 8 mmol/L N 2-11 Glucose 103 mg/dL High 70-100 Blood Urea Nitrogen 23 mg/dL N 6-24 Creatinine 1.00 mg/dL N 0.67-1.17 BUN/Creatinine Ratio 23.0 High 8-20 Calcium 9.5 mg/dL N 8.6-10.3 Egfr Non- 74.8 >60 Egfr 90.5 >60 1 CBC Auto Diff 02/25/2018 [facility] White Blood 6.9 10^3/uL N 3.5-10.[address] [place] [address] [phone] Red Blood Count 5.84 10^6/uL High 4.00-5.40 [...] Blood Cells % 0.1 Laboratory test 02/25/2018 [facility] B-Type 55 pg/mL [address] [place] [address] Peptide BNP [phone] Laboratory test 02/21/2018 [facility] B-Type <pending> finding [address] [place] [address] Peptide BNP [phone] Basic Metabolic 07/17/2017 [facility] Potassium 4.1 mmol/L N 3.5-5. Panel [address] [place] [address] [phone] Chloride 102 mmol/L N 101-111 Co2 Carbon Dioxide 26 mmol/L N 22-32 Glucose 76 mg/dL N 70-100 Blood Urea Nitrogen 9 mg/dL N 6-24 Creatinine 0.99 mg/dL N 0.67-1.17 BUN/Creatinine Ratio 9.1 N 8-20 Calcium 9.0 mg/dL N 8.6-10.3 Egfr Non- 75.9 >60 Egfr 97.6 >60 3 Sodium 137 mmol/L N 133-145 Anion Gap 9 mmol/L N 2-11 Laboratory test 07/17/2017 [facility] Magnesium 2.0 mg/dL N 1.9-2.[address] [place] [address] [phone] CBC Auto Diff 07/17/2017 [facility] White Blood 8.1 N 3.5- 10.[address] Count 10^3/[place] [address] [phone] Red Blood Count 6.09 10^6/uL High 4.0-5.4 [...] Blood Cells % 0.1 Thyroid Panel 07/17/2017 [facility] Free T4 (Free 0.79 ng/dL N 0.61-1.[address] Thyroxine) [place] [address] [phone] Thyroxine 6.29 g/mL N 6.09-12.23 TSH (Thyroid Stim Horm) 3.09 mcIU/mL N 0.34-5.60 Laboratory test 07/17/2017 [facility] Uric Acid 7.3 mg/dL N 4.4-7.6 finding [address] [place] [address] [phone] Comp Metabolic 11/05/2015 [facility] Sodium 135 mmol/L N 133- 145 Panel [address] [place] [address] [phone] Potassium 3.9 mmol/L N 3.5-5.0 Chloride 101 [...] 77.9 N >60 Egfr 100.2 N >60 4 Type & Screen 11/05/2015 [facility] Patient Blood Type A Positive N [address] [place] [address] [phone] Antibody Screen NEGATIVE N CBC No Diff 11/05/2015 [facility] White Blood 7.6 10^3/uL N 3.5-10.[address] [place] [address] [phone] Red Blood Count 6.03 10^6/uL High 4.0-5.4 Hemoglobin 17.5 g/dL N 14.0-18.0 Hematocrit 54 % High 42-52 Mean Corpuscular Volume 90 fL N 80-94 Mean Corpuscular Hemoglobin 29 pg N 27-31 Mean Corpuscular HGB Conc 32 g/dL N 31-36 Red Cell Distribution Width 15 % N 10.5-15 Platelet Count 186 10^3/uL N 150-450 Mean Platelet Volume 8 um3 N 7.4-10.4 Laboratory test 11/05/2015 [facility] Partial 37.2 High 26.0- 36.[address] [place] [address] PTT [phone] Inr/Protime 11/05/2015 [facility] Inr 1.05 N 0.89-1.[address] [place] [address] [phone] Arterial Blood 11/22/2012 [facility] PH Arterial 7.37 7.35- 7.[address] [place] [address] [phone] Pco2 Arterial 44 mmHg 35-45 Po2 Arterial 33 mmHg Low 80-100 O2 Saturation Arterial 69.7 % Low 95-98 Base Excess Arterial -0.3 -2.0-2.0 5 Hco3 Arterial 23.7 mmol/L Arterial Blood Gas 11/22/2012 [facility] PH Arterial 7.40 7.35-7.[address] [place] [address] [phone] Pco2 Arterial 36 mmHg 35-45 Po2 Arterial 73 mmHg Low 80-100 O2 Saturation Arterial 96.9 % 95-98 Base Excess Arterial -1.9 -2.0-2.0 6 Hco3 Arterial 23.3 mmol/L - Inr/Protime 11/21/2012 [facility] Inr 0.94 0.87-0.[address] [place] [address] [phone] Cath Panel 11/21/2012 [facility] Activated 37.9 High 22.18- 37.[address] [place] [place] [address] Thrombo Time [phone] Basic Metabolic 11/21/2012 [facility] Sodium 137 mmol/L 133- [address] [place] [address] [phone] Potassium 4.4 mmol/L 3.5-5.0 Chloride 104 mmol/L 101-111 Co2 Carbon Dioxide 27.0 mmol/L 22-32 Anion Gap 6.0 mmol/L 2-11 Glucose 117 mg/dL High 70-100 Blood Urea Nitrogen 18 mg/dL 6-24 Creatinine 1.00 mg/dL 0.50-1.40 BUN/Creatinine Ratio 18.0 8-20 Calcium 9.4 mg/dL 8.1-9.9 Egfr Non- 76.0 >60 Egfr 97.7 >60 7 CBC With 11/21/2012 [facility] White Blood 5.2 10^3/uL 4.8- 10.8 Manual Diff [address] [place] [address] [phone] Red Blood Count 5.33 10^6/uL 4.0-5.4 Hemoglobin [...] 5 Kidney failure <15 (or dialysis) 5 Reference ranges based on room air. 6 Reference ranges based on room air. 7 Because ethnic data is not always readily [...] (or dialysis) Procedures Date Code Description Status 10/15/2018 69546 EKG Tracing & Interpretation Completed 07/03/2018 33797 Implantable Cardio System Loop Recorder Sys Remota Data Completed Acquistio 07/03/2018 84402 Interrogation Dev Loop Recorder Incl Physician Completed Analysis,Rev,Repor 06/21/2018 05404 EKG Tracing & Interpretation Completed 06/02/2018 61121 Implantable Cardio System Loop Recorder Sys Remota Data Completed Acquistio 06/02/2018 69532 Interrogation Dev Loop Recorder Incl Physician Completed Analysis,Rev,Repor 05/02/2018 72537 Implantable Cardio System Loop Recorder Sys Remota Data Completed Acquistio 05/02/2018 18772 Interrogation Dev Loop Recorder Incl Physician Completed Analysis,Rev,Repor 04/18/2018 43697 Inject Tendon Sheath Or Ligament Aponeurosis Eg Plantar Completed Fascia 04/03/2018 28895 EKG Tracing & Interpretation Completed 04/01/2018 74633 Implantable Cardio System Loop Recorder Sys Remota Data Completed Acquistio 04/01/2018 02149 Interrogation Dev Loop Recorder Incl Physician Completed Analysis,Rev,Repor 03/01/2018 68651 Interrogation Dev Loop Recorder Incl Physician Completed Analysis,Rev,Repor 03/01/2018 74460 Implantable Cardio System Loop Recorder Sys Remota Data Completed Acquistio 02/25/2018 18001 Moderate Sedation Services; Same Phys Intl 15 Mins; PT >=5 Completed Years 02/25/2018 76437 EKG, Interpretation Only Completed 02/25/2018 51534 EKG, Interpretation Only Completed 02/25/2018 18502 Cardioversion Completed 01/28/2018 25454 Implant Cardiac Loop Recorder Completed 11/28/2017 13177 Holter Monitor Review (24 hr)dr review & interp only Completed 10/15/2017 17589 EKG Tracing & Interpretation Completed 07/27/2017 27137 EKG Tracing & Interpretation Completed 07/25/2017 33201 Holter Monitor Review (24 hr)dr review & interp only Completed 07/17/2017 31520 EKG Tracing & Interpretation Completed 07/17/2017 35498 EKG Tracing & Interpretation Completed 03/09/2017 92491 ECHO Transthoracic, Real-Time 2D With Doppler And Color Completed Flow 01/23/2017 32208 EKG Tracing & Interpretation Completed 06/29/2016 76086 Holter Monitor Review (24 hr) review & interp only Completed 06/27/2016 89192 ECHO Transthoracic, Real-Time 2D With Doppler And Color Completed Flow 06/27/2016 77190 ECG Monitor/Recording W/Visual Superimposition Scanning Completed 06/09/2016 13719 EKG Tracing & Interpretation Completed 05/15/2016 23821 Inject/Drain Joint/Bursa Major W/O US Completed 11/11/2015 91631 THR Total Hip Replacement Completed 11/11/2015 88692 THR Total Hip Replacement Completed 10/12/2015 20090 EKG Tracing & Interpretation Completed 10/08/2015 95509 Inject/Drain Joint/Bursa Major W/O US Completed 06/28/2015 14397 EKG Tracing & Interpretation Completed 01/28/2015 13159 Polysomnography Sleep Staging 4+ Parameters W/Cpap Completed 12/07/2014 54749 Holter Monitor Review (24 hr) review & interp only Completed 12/01/2014 69242 ECHO Transthorasic Realtime 2D W Doppler & Color Flow Hosp Completed 11/24/2014 66472 EKG Tracing & Interpretation Completed 04/29/2014 89824 EKG Tracing & Interpretation Completed 09/26/2013 19524 ECHO Transthoracic, Real-Time 2D With Doppler And Color Completed Flow 09/26/2013 84592 EKG Tracing & Interpretation Completed 01/10/2013 23805 ECHO Transthoracic, Real-Time 2D With Doppler And Color Completed Flow 01/10/2013 77917 EKG Tracing & Interpretation Completed 11/22/2012 40819 RT & lt Cath W/Injx HRT Art&L Ventr Img S&I Completed 11/22/2012 99837 Left Heart Cath. Incl S/I Coronaries, Angio S/I V Gram If Completed Done 11/20/2012 75326 ECHO Transthoracic, Real-Time 2D With Doppler And Color Completed Flow 11/20/2012 27081 EKG Tracing & Interpretation Completed Encounters Type Date Location Provider Dx Diagnosis Office Visit 07/31/2018 [facility] Efren Arita I48.0 Paroxysmal atrial 1:30p Of Pennie Bowman M.D. fibrillation R00.2 Palpitations Z95.2 Presence of prosthetic heart valve Office Visit 06/21/2018 11:00a [facility] Aditi SBlanca I48.0 Paroxysmal atrial Of Pennie Miranda N.P. fibrillation R00.2 Palpitations R94.31 Abnormal electrocardiogram [ECG] [EKG] Z95.4 Presence of other heart-valve replacement Office Visit 05/16/2018 11:30a Pulmonology And Colleen G47.33 Obstructive sleep Sleep Services Of MD Rogelio apnea (adult) Pennie (pediatric) E66.01 Morbid (severe) obesity due to excess calories Office Visit 04/18/2018 10:45a Orthopedic Roula Clemons, M65.351 Trigger finger, Services Of RPA-C right little C.M.A. finger Office Visit 04/03/2018 2:45p [facility] Stacy Arita Z95.818 Presence of Of Pennie Bowman M.D. other cardiac implants and grafts I48.0 Paroxysmal atrial fibrillation Z95.4 Presence of other heart-valve replacement Office Visit 12/26/2017 10:45a [facility] Efren Arita I48.92 Unspecified Of Pennie Bowman M.D. atrial flutter Office Visit 10/15/2017 4:40p [facility] Qutaybeh S. 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 E66.01 Morbid (severe) obesity due to excess calories G47.33 Obstructive sleep apnea (adult) (pediatric) Office Visit 07/17/2017 11:00a [facility] Lucina Obrien G47.33 Obstructive sleep Of [facility] MARGOT apnea (adult) (pediatric) E66.01 Morbid (severe) obesity due to excess calories I71.9 Aortic aneurysm of unspecified site, without rupture Z95.2 Presence of prosthetic heart valve I48.92 Unspecified atrial flutter M10.00 Idiopathic gout, unspecified site Office Visit 05/10/2017 11:45a Pulmonology And Colleen G47.33 Obstructive sleep Sleep Services Of MD Rogelio apnea (adult) [facility] (pediatric) E66.01 Morbid (severe) obesity due to excess calories Z68.41 Body mass index (BMI) 40.0-44.9, adult Office Visit 01/23/2017 [facility] Qutaybeh S. I35.0 Nonrheumatic 4:00p Cardiology Greyson Gonsalez aortic (valve) stenosis I71.9 Aortic aneurysm of unspecified site, without rupture R42 Dizziness and giddiness E66.01 Morbid (severe) obesity due to excess calories Z68.41 Body mass index (BMI) 40.0-44.9, adult G47.33 Obstructive sleep apnea (adult) (pediatric) Office Visit 07/12/2016 Pulmon[facility] And Antonette G47.33 Obstructive sleep 3:15p Sleep Services Of ROBI Sanchez RN, apnea (adult) [facility]- (pediatric) E66.01 Morbid (severe) obesity due to excess calories Office Visit 06/09/2016 [facility] Quiraybeh S. G47.33 Obstructive sleep 2:20p Cardiology Greyson [...] Sleep Services Of MD Rogelio apnea (adult) [employer] (pediatric) E66.01 Morbid (severe) obesity due to excess calories Office Visit 11/13/2015 1:59p [facility] Cinthya Phillips, Z96.641 Presence of Assoc,pc N.P. 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 G47.33 Obstructive sleep 2:40p Cardiology Greyson Gonsalez apnea (adult) (pediatric) E66.01 Morbid (severe) obesity due to excess calories I35.0 Nonrheumatic aortic (valve) stenosis I10 Essential (primary) hypertension Z95.2 Presence of prosthetic heart valve Office Visit 05/10/2015 1:15p Pulmonology And Colleen G47.33 Obstructive sleep Sleep Services Of MD Rogelio apnea (adult) [employer] (pediatric) E66.01 Morbid (severe) obesity due to excess calories Office Visit 02/26/2015 11:30a Pulmonology And Colleen 327.23 Obstructive Sleep Sleep Services Of MD Rogelio Apnea Adult & [employer] Pediatric 278.01 Obesity Morbid Office Visit 01/27/2015 11:30a Pulmonology And Colleen 327.23 Obstructive Sleep Sleep Services Of MD Rogelio Apnea Adult & [employer] Pediatric 278.01 Obesity Morbid Office Visit 12/24/2014 10:30a [facility] MARGOT Ceron 424.1 Aortic Valve Disorder 401.1 Hypertension Benign 785.1 Palpitations 427.61 Premature Beats Supraventricular 327.23 Obstructive Sleep Apnea Adult & Pediatric Office Visit 11/24/2014 2:40p [facility] Juan Jose Villarreal 424.1 Aortic Valve Greyson Gonsalez Disorder 401.1 Hypertension Benign 278.00 Obesity Unspec 785.2 Murmur Cardiac Undiagnosed 786.05 Shortness Of Breath 785.1 Palpitations Office Visit 04/29/2014 2:40p [facility] Juan Jose Villarreal 424.1 Aortic Valve Greyson Gonsalez Disorder 401.1 Hypertension Benign 278.00 Obesity Unspec 785.2 Murmur Cardiac Undiagnosed Office Visit 09/26/2013 10:20a [facility] Juan Jose Villarreal 424.1 Aortic Valve Greyson Gonsalez Disorder 401.1 Hypertension Benign 278.00 Obesity Unspec 786.05 Shortness Of Breath 785.1 Palpitations V72.81 Examination Preoperative Cardiovascular Office Visit 07/17/2013 2:20p [facility] Piedad 785.1 Palpitations AT [facility] [place] Jm Rosario 424.1 Aortic Valve Disorder 401.1 Hypertension Benign 278.00 Obesity Unspec Office Visit 04/02/2013 11:20a [facility] Piedad 424.1 Aortic Valve Jm Rosario Disorder V45.89 Postsurgical Status Other 401.1 Hypertension Benign 278.00 Obesity Unspec 715.96 Osteoarthrosis Unspec Genlzd Or Localized Lower Leg Office Visit 01/29/2013 Kali Herbert V45.89 Postsurgical 11:20a Cardiology Jm Rosario Status Other 424.1 Aortic Valve Disorder 401.1 Hypertension Benign 278.00 Obesity Unspec 715.96 Osteoarthrosis Unspec Genlzd Or Localized Lower Leg Office Visit 01/10/2013 Kali Dowellie V45.89 Postsurgical 2:00p Cardiology Minnie Rosario. Status Other 424.1 Aortic Valve Disorder 401.1 Hypertension Benign 278.00 Obesity Unspec 780.57 Unspecified Sleep Apnea 715.96 Osteoarthrosis Unspec Genlzd Or Localized Lower Leg Office Visit 11/20/2012 10:20a [facility] Piedad 424.1 Aortic Valve Jm Rosario Disorder V72.81 Examination Preoperative Cardiovascular 401.9 Hypertension Unspec 278.00 Obesity Unspec 780.57 Unspecified Sleep Apnea Office Visit 10/24/2012 Orthopedic Cricket 715.96 Osteoarthrosis 8:00a Services Of Greyson Verma Unspec Genlzd Or C.M.A. Localized Lower Leg Plan of Treatment Future Appointment(s):05/19/2019 11:30 am - Colleen Mercado MD at [facility]10/15/2018 - Efren Bowman M.D.I48.0 Paroxysmal atrial ynygzykrzlrfX85.2 Presence of prosthetic heart xrldwK59.5 Sick sinus syndromeNew Orders:Implant Pacemaker, Ordered: 10/15/18Follow up:1 week after pacer
--- NOTE | 2018-11-06 17:32 | ED ---
Headache - HPI Summary HPI Summary: This patient is a 68 year old M presenting to ED with a chief complaint of L- sided MELARA since 11/01/18. The CC is described as throbbing and constant but waxing and waning with exertion. It starts off with a fluttering in his chest. Last night, he felt good, but then around 0015, his MELARA flared while at rest in bed, his BP was elevated and he took 3 Tylenol to help him get to sleep. He felt better this morning but his BP was still high. 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 The patient rates the pain 2-3/10 in severity at rest. Symptoms aggravated by exertion. Symptoms alleviated by rest. Patient reports R eye erythema and photophobia. Patient denies N/V, fever, and CP. He didnt notify Dr. Bowman about coming to the ED today. The patient sees Dr. Bowman for a pacemaker that was put in on 10/28/18 and the patient removed the angeles yesterday. The reason for the pacemaker was because they had an event monitor put in that showed his heart had stopped for a couple seconds. He was started on Xarelto so that Dr. Bowman could do a cardioversion in the future. He has been in afib for about 4-5 weeks and since the pacemaker was put in, the patient reports having flutters. - History Of Current Complaint Chief Complaint: EDHeadache Stated Complaint: HEADACHE PER PT Time Seen by Provider: 11/06/18 16:42 Hx Obtained From: Patient Onset/Duration: Sudden Onset, Started days ago, Still Present Currently Pain Is: Current Pain Scale(0-10)= - 2-3/10 Timing: Constant Character: Throbbing Location of Headache: Other: - L-sided Aggravating Factor: Exertion Allevating Factors: Nothing - Allergies/Home Medications Allergies/Adverse Reactions: Allergies Allergy/AdvReac Type Severity Reaction Status Date / Time adhesive Allergy Rash Verified 11/06/18 12:25 Penicillins Allergy Hives Verified 11/06/18 12:25 MESH STITICHING Allergy BODY Uncoded 11/27/15 14:12 STARTED REJECTING AND "SPITTING OUT" OF SKIN STERI STRIPS Allergy Blisters Uncoded 11/27/15 14:12 STITCHING Allergy CAUSE Uncoded 11/27/15 14:12 DISCHARGE PUS Home Medications: Home Medications Metoprolol Succinate XL TAB* [Toprol XL TAB*] 100 mg PO DAILY 11/06/18 [History Confirmed 11/06/18] Milfay-3 Fatty Acids (Nf) [Fish Oil (NF)] 2,000 mg PO DAILY 11/06/18 [History Confirmed 11/06/18] Omeprazole (Nf) [Prilosec (NF)] 40 mg PO DAILY 11/06/18 [History Confirmed 11/06] Ramipril CAP* [Altace CAP*] 10 mg PO DAILY 11/06/18 [History Confirmed 11/06/18] Tamsulosin CAP* [Flomax CAP*] 0.4 mg PO DAILY 11/06/18 [History Confirmed ] PMH/Surg Hx/FS Hx/Imm Hx Endocrine/Hematology History: Denies: Hx Diabetes Cardiovascular History: Reports: Hx Hypertension, Hx Pacemaker/ICD, Hx Valvular Heart Disease, Other Cardiovascular Problems/Disorders - Aortic Valve Replacement 12/03/12 Denies: Hx Angina, Hx Coronary Artery Disease, Hx Hypercholesterolemia, Hx Myocardial Infarction Respiratory History: Reports: Hx Sleep Apnea, Other Respiratory Problems/ Disorders - SLEEP APNEA Denies: Hx Asthma, Hx Chronic Obstructive Pulmonary Disease (COPD) GI History: Reports: Hx Gastroesophageal Reflux Disease - ON DAILY MEDS, Hx Hiatal Hernia, Hx Ulcer History: Reports: Hx Kidney Stones Denies: Hx Renal Disease Musculoskeletal History: Reports: Hx Arthritis - Osteoarthritis, Hx Back Problems, Hx Bursitis - Knees, Hx Tendonitis - HX OF, ARMS Sensory History: Reports: Hx Contacts or Glasses Denies: Hx Hearing Aid Opthamlomology History: Reports: Hx Contacts or Glasses Psychiatric History: Reports: Hx Depression Denies: Hx Panic Disorder - Surgical History Surgery Procedure, Year, and Place: Left Total hip replacement ( [facility]); left and right carpal tunnel release; left knee arthroscopy; left shoulder surgery; right knee surgery x2; tonsillectomy; Aortic Valve Replacement (BOVINE)2012 ([facility])- STERNAL WIRE FOR CLOSURE; Right Knee Total Replacement 2013 ( [place]). 2013 - CARDIAC CATH - NO STENTS. pacemaker Hx Anesthesia Reactions: No Infectious Disease History: No Infectious Disease History: Denies: Hx Clostridium Difficile, Hx Hepatitis, Hx Human Immunodeficiency Virus (HIV), Hx Shingles, Hx Tuberculosis, Traveled Outside the [place] in Last 30 Days - Family History Known Family History: Positive: Cardiac Disease, Diabetes, Other Family History: prostate CA - Social History Alcohol Use: None Substance Use Type: Reports: None Smoking Status (MU): Never Smoked Tobacco Have You Smoked in the Last Year: No Review of Systems Negative: Fever Positive: Photophobia, Erythema - right eye Negative: Sore Throat Positive: Other - fluttering, pacemaker. Negative: Chest Pain Negative: Shortness Of Breath, Cough Negative: Abdominal Pain, Vomiting, Nausea Negative: dysuria, hematuria Negative: Myalgia, Edema Negative: Rash Neurological: Other - denies dizziness Positive: Headache - L-sided All Other Systems Reviewed And Are Negative: Yes Physical Exam - Summary Physical Exam Summary: Constitutional: Well-developed, Well-nourished, Alert. (-) Distressed Skin: Warm, Dry HENT: Normocephalic; Atraumatic Eyes: Subjconjunctive hemorrhage in L eye Neck: Musculoskeletal ROM normal neck. (-) JVD, (-) Stridor, (-) Tracheal deviation Cardio: Rhythm regular, rate normal, Heart sounds normal; Intact distal pulses; The pedal pulses are 2+ and symmetric. Radial pulses are 2+ and symmetric. (-) Murmur Pulmonary/Chest wall: Effort normal. (-) Respiratory distress, (-) Wheezes, (-) Rales Abd: Soft, (-) epigastric tenderness, (-) Distension, (-) Guarding, (-) Rebound Musculoskeletal: (-) Edema Lymph: (-) Cervical adenopathy Neuro: Alert, Oriented x3 Psych: Mood and affect Normal GCS: 15 Triage Information Reviewed: Yes Vital Signs On Initial Exam: Initial Vitals Temp Pulse Resp BP Pulse Ox 99 F 69 16 177/102 98 11/06/18 12:17 11/06/18 12:17 11/06/18 12:17 11/06/18 12:17 11/06/18 12:17 Vital Signs Reviewed: Yes Diagnostics - Vital Signs Vital Signs Temp Pulse Resp BP Pulse Ox 11/06/18 16:18 98.9 F 67 16 143/92 95 11/06/18 14:29 98.6 F 67 16 139/90 99 11/06/18 12:17 99 F 69 16 177/102 98 - Laboratory Result Diagrams: 11/06/18 17:31 11/07/18 05:40 Lab Statement: Any lab studies that have been ordered have been reviewed, and results considered in the medical decision making process. - CT Brain CT CT Interpretation Completed By: Radiologist Summary of CT Findings: NO ACUTE INTRACRANIAL PATHOLOGY. Dr. Gutierrez has reviewed this radiology report. - EKG 1750 Cardiac Rate: NL - 67 BPM EKG Rhythm: Sinus Rhythm - or ectopic atrial rhythm Summary of EKG Findings: Mild ST elevation in III, aVF (<1mm) and no STEMI Re-Evaluation - Re-Evaluation First Eval Re-Evaluation Time: 18:16 Headache Course/Dx - Course Assessment/Plan: This patient is a 68 year old M presenting to ED with a chief complaint of L-sided MELARA since 11/01/18. Brain CT reveals NO ACUTE INTRACRANIAL PATHOLOGY. EKG reveals sinus or ectopic atrial rhythm at 67 BPM, mild ST elevation in III, aVF (<1mm), and no STEMI. The [employer] says that the atrial rate was up to 210 and ventricular rate was up to 80. The device was functioning appropriately. Consulted Dr. Lao about the patient's case at 1835 and she agrees that he should be admitted. She agreed no heparin given the absence of chest pain. Hopefully he can get a stess test tomorrow. The patient is currently on Xarelto. Consulted Dr. Chris at 1858 and she accepts the patient for admission. The patient will be admitted with dx of cardiac ischemia , abnormal EKG, and hypertensive emergency. Patient understands and agrees with this plan. - Diagnoses Differential Diagnosis/HQI/PQRI: Other - Cardiac ischemia, abnormal EKG, and hypertensive emergency Provider Diagnoses: Cardiac ischemia, Abnormal EKG, Hypertensive emergency - Physician Notifications Discussed Care Of Patient With: Joanna Lao Time Discussed With Above Provider: 18:35 Instructed by Provider To: Other - Consulted Dr. Lao about the patient's case and she agrees that he should be admitted. She agreed no heparin given the absence of chest pain. Hopefully he can get a stess test tomorrow. The patient is currently on Xarelto. Consulted Dr. Chris at 1858 and she accepts the patient for admission. - Critical Care Time Critical Care Time: 30-74 min - 45 minutes Discharge - Sign-Out/Discharge Documenting (check all that apply): Patient Departure - admit Patient Received Moderate/Deep Sedation with Procedure: No - Discharge Plan Condition: Improved Disposition: ADMITTED TO [facility] - Billing Disposition and Condition Condition: IMPROVED Disposition: Admitted to [facility] - Attestation Statements Document Initiated by Emiliae: Yes Documenting Scribe: Rudy Lima Provider For Whom Lois is Documenting (Include Credential): Mckay Gutierrez MD Scribe Attestation: Rudy Diamond, scribed for Mckay Gutierrez MD on 11/11/18 at 1041. Scribe Documentation Reviewed: Yes Provider Attestation: The documentation as recorded by the Rudy brewster accurately reflects the service I personally performed and the decisions made by me, Mckay Gutierrez MD Status of Scribe Document: Viewed
[2018-11-06 17:39] LABS: ABS Basophils 0.1 10^3/ul (0-0.2); ABS Eosinophils 0.1 10^3/ul (0-0.6); ABS Lymphocytes 1.2 10^3/ul (1.0-4.8); ABS Monocytes 0.6 10^3/ul (0-0.8); ABS Neutrophils 5.9 10^3/ul (1.5-7.7); ABS Nucleated RBC 0 10^3/ul; Hematocrit 47 % (36-46); Hemoglobin 16.2 g/dL (14.0-18.0); Lymphocyte % 15.3 %; Mean Corpuscular HGB Conc 35 g/dL (31-36); Mean Corpuscular Hemoglobin 30 pg (27-31); Mean Corpuscular Volume 86 fL (80-94); Mean Platelet Volume 7.1 fL (7.4-10.4); Nucleated Red Blood Cells % 0; Platelet Count 138 10^3/uL (150-450); Red Blood Count 5.44 10^6 /uL (4.18-5.48); Red Cell Distribution Width 15 % (10.5-15); White Blood Count 7.9 10^3/uL (3.5-10.8)
[2018-11-06 17:56] LABS: Troponin I 0.02 ng/mL (<0.04)
[2018-11-06 17:57] LABS: Albumin 4.1 g/dL (3.2-5.2); Albumin/Globulin Ratio 1.7 (1-3); BUN/Creatinine Ratio 15.6 (8-20); C Reactive Protein 3.12 mg/L (<8.01); Calcium 9.1 mg/dL (8.6-10.3); EGFR African American 101.8 (>60); EGFR Non-African American 84.2 (>60); Globulin 2.4 g/dL (2-4); Potassium 3.9 mmol/L (3.5-5.0); Total Bilirubin 0.7 mg/dL (0.2-1.0); Total Protein 6.5 g/dL (6.4-8.9)
[2018-11-06] MEDS ORDERED: Aspirin 81 mg CHEW TAB* 81 MG TAB.CHEW PO ONE (18:10)
[2018-11-06] MEDS ORDERED: Acetaminophen TAB* 325 MG PO PRN (20:02)
[2018-11-06] MEDS ORDERED: Ondansetron INJ* 2 MG/ML VIAL IV PRN (20:02)
[2018-11-06] MEDS ORDERED: Iohexol 350* (CONTRAST) 500 ML MDV IV ONE (20:24)
[2018-11-06] MEDS ORDERED: Flecainide TAB* 100 MG PO SCH (21:00)
--- NOTE | 2018-11-06 23:46 | HP ---
CC: Dr. Gray; Dr. Bowman; Dr. Lao; Dr. Rodriguez* HISTORY AND PHYSICAL: DATE OF ADMISSION: 11/06/18 PRIMARY CARE PROVIDER: Dr. Gray. ATTENDING PHYSICIAN WHILE IN THE HOSPITAL: Dr. Rachel Connors* (report dictated by Timothy Ayers NP). CHIEF COMPLAINT: 1. Headaches. 2. Palpitations. HISTORY OF PRESENT ILLNESS: Mr. Wesley is a 68-year-old male patient, who approximately 10 days ago underwent a pacemaker insertion for sick sinus syndrome after which he was found that he was having pauses on the LINQ's monitor. He tolerated the procedure well. I refer you to that H and P and discharge summary for details. He was discharged on Xarelto. He started noticing on Sunday, this past week, on the that he started having a headache. He had a constant headache of 3/10 that he described as a pressure in the top of his head. He states that with minimal exertion, the pain shot up between 8 to 9 out of 10 to the head, it was slightly worse in the left side. He denied having any visual disturbance with this. He denied any tearing or feeling stuffy. He denied having any photophobia or sound sensitivity. He said that he had no nausea. He denied any visual changes and no focal neurological deficits with it being noted even with minimal exertion, changing his pants made the headache come on and worse. He denied having any neck pain. No fever. No neck stiffness. He states that he avoids NSAIDs because of his history of factor XI deficiency. He said that he was noticing that he is having increasing palpitation since the pacemaker. He said initially he was doing well from recovery. He states that the headache to his knowledge did not correlate with his position, be it leaning forward or lying back. He states when he actually was lying flat at one time, it woke him up out of his sleep, had a 6/7 pain. He denied having any drowsiness or any dizziness or lightheadedness. He denied feeling unsteady. He was concerned because the headache was not getting any better. He stopped Xarelto 24 hours ago, but the headache just was not getting better, the palpitations were continuing and so he decided to come into the ER today. In ER, it was noted that he did have EKG changes, particularly T-wave inversions and there was concern given these findings due to the palpitations and the headaches, and we were asked to evaluate for admission. PAST MEDICAL HISTORY: Significant for: 1. Atrial flutter. 2. Sick sinus syndrome, status post pacemaker placement on 10/28/18. 3. JOSE, for which he wears a BiPAP. 4. Factor XI deficiency. 5. Hypertension. 6. Degenerative disk disease. PAST SURGICAL HISTORY: 1. He has had a pacemaker. 2. He has had bilateral total hip replacements. 3. He has had carpal tunnel. 4. He has had arthroscopy of both knees. 5. He has had right total knee replacement. 6. He has had right shoulder surgery. 7. Tonsillectomy. 8. Aortic valve replacement, which is Bovine and he has had a pacemaker placed on 10/28/18. HOME MEDICATIONS: Include: 1. Prilosec 40 mg daily. 2. Toprol-XL 100 mg daily. 3. Flomax 0.4 mg daily. 4. Altace 10 mg daily. 5. Fish oil 2000 mg p.o. daily. 6. Flecainide 50 mg p.o. b.i.d. 7. Testosterone 2 mL IM q. 21 days. ALLERGIES TO MEDICATIONS: Include adhesive tape, PENICILLINS, mesh stitching, steri-strips. FAMILY HISTORY: His mother was diabetic and had CAD. Father had a history of prostate cancer. SOCIAL HISTORY: He is a nonsmoker. Does not drink alcohol. 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 REVIEW OF SYSTEMS: There is no documented fever. He denied having any significant weight change. There was no double vision. He denies having any ear discharge. There is no rhinorrhea. There was no sore throat, no thyroid enlargement. He denies having any chest pain. There was no orthopnea. There was no nocturnal dyspnea. There was no abdominal pain. No nausea, no vomiting , no dysuria. There was no frequency. There was no seizure, no loss of consciousness. No pruritus, no skin ulcerations. Review of 14 systems was completed, all others negative. PHYSICAL EXAMINATION GENERAL: At this time, Mr. Wesley is a 68-year-old male patient. He is sitting in the ED stretcher. Appears to be well nourished, well developed. He does not appear to be in any acute distress. VITAL SIGNS: Blood pressure 116/82, when he presented, his blood pressure was 177/102 with a pulse of 66; respirations were 20; O2 sat 98%; temperature 97.9. HEENT: Head: Atraumatic and normocephalic. Eyes: EOMs are intact. Sclerae anicteric, not pale. Throat: Oral mucosa appears to be moist. No oropharyngeal erythema. NECK: Supple. LUNGS: Clear to auscultation bilaterally. No wheezes, rales or rhonchi. HEART: Heart sounds S1, S2. He has actually regular rate and rhythm. No murmurs, rubs or gallops. ABDOMEN: Soft. It was flat, nontender. Bowel sounds were present. EXTREMITIES: Pulses were 2+ throughout. He is moving all 4 extremities with 5/ 5 strength. NEUROLOGIC: He is awake. He is alert. He is oriented x3. His speech is clear. His tongue is midline. His station examiner were equal. He had 5/5 strength in the upper extremities bilaterally. He had breakaway strength 4/5 at the hip flexors bilaterally with dorsi and plantar flexion, he had 5/5 strength bilaterally in the lower extremities. The reflexes were 3, were trace bilaterally to the patella. He had 1+ at the upper extremities at the biceps and brachioradialis. His cranial nerves were intact. He had sensation bilaterally in the face. EOMs were intact. Visual nazario were intact. Pupils were equal and reactive to light at this point. Tongue was midline. He had no facial drooping noted. He had 5/5 strength at the trapezius. At this point, his neck was supple. He had no neck stiffness. I did not test his gait given the fact that exertion increases his headaches at this point. No focal deficits were noted. His skin was intact. DIAGNOSTIC STUDIES/LAB DATA: His labs reveal a WBC of 7.9, RBC of 5.44, hemoglobin 16.2, hematocrit 47, platelet count 138. Sodium 137, potassium is 3.9, chloride of 105, bicarb 25, BUN 14, creatinine 0.90, glucose 97, lactic 1, calcium 9.1, total bili 0.7, AST 33, ALT 52, alk phos 78, troponin 0.02, CRP is 3.12, albumin of 4.1. He has had a brain CT. CT brain showed no acute intracranial pathology. He had an EKG obtained today, which does show A- flutter with a rate of 67. He had T-wave inversions in lead I, II, aVL along with V1, 2, 3, 4, 5, and 6, which he did not have previously. His previous EKG did show A-flutter, but again the T-wave inversions are now new. He had no ST elevations noted. Old medical records were reviewed. ASSESSMENT AND PLAN: Mr. Wesley is a 68-year-old male patient coming in to the ED today with complaints of palpitations and headache. At this point, my recommendations are: 1. Headache: At this point, I am concerned because he was having an exertional headache. I did touch-base with Dr. Rodriguez. We are going to pursue a CTA of the head and neck to look for dissection and aneurysm. A CT brain did not show subarachnoid hemorrhage. This was an early bleed. LP would be justified; however, we cannot pursue this because of his history of factor XI deficiency and the recent Xarelto, I think it is too risky to pursue this. My plan is going forward is get a CTA of the head and neck, also a CTV as well as to look for any venous abnormalities as well. He has got no focal neurological deficits on exam at this point. I did touch-base with Dr. Lao given the recent pacemaker placement, who again notes that we cannot do an MRI for 6 weeks because we have to wait for lead maturity, so we are again checking CTA of the head and neck, CTV, touch-base with Dr. Rodriguez about this and she was in agreement. Obviously if the CTA is positive for any dissection or aneurysm, we will need to consider transfer to a tertiary care center given his history. 2. Palpitations. Again, this could be secondary to his A-flutter. His pacemaker would be tracking this. With the EKG changes, it is concerning. I think we need to trend his troponins, repeat his EKG serially and get an echo. We are checking echo, cardiology has been consulted. I will check his troponins serially. We will continue to follow. 3. History of JOSE. I am waiting for the CTA before I order BiPAP because I do not want any increase in his intracranial pressure if he were to have any aneurysmal changes or dissections. 4. Factor XI deficiency. We will continue his current medical regimen. 5. Hypertension. Continue meds as prescribed. 6. Degenerative disk disease. We will order p.r.n. pain medications. 7. DVT prophylaxis. He will be placed on SCDs. 8. Code status: Full code. 9. Fluids, electrolytes, and nutrition: He is n.p.o. pending further workup. TIME SPENT: Time spent on the admission 60 minutes, greater than half the time spent [id number] with the patient obtaining my history and physical; other half of the time spent going over the plan of care with the patient and implementing my plan of care. I did discuss the plan of care with my attending, Dr. Connors; she is in agreement. TIMOTHY AYERS NP [id number]/CPS #: [id number] MARY
[2018-11-07 05:55] LABS: INR 1.06 (0.77-1.02)
[2018-11-07 06:10] LABS: BUN/Creatinine Ratio 13.3 (8-20); Calcium 8.9 mg/dL (8.6-10.3); EGFR African American 85.2 (>60); EGFR Non-African American 70.5 (>60); HDL Cholesterol 24.1 mg/dL
[2018-11-07] MEDS ORDERED: Pantoprazole TAB * 40 MG TAB PO SCH (09:00)
[2018-11-07] MEDS ORDERED: Metoprolol Succinate XL TAB* 100 MG PO SCH (09:00)
[2018-11-07] MEDS ORDERED: Tamsulosin CAP* 0.4 MG PO SCH (09:00)
[2018-11-07] MEDS ORDERED: Ramipril CAP* 10 MG PO SCH (09:00)
--- NOTE | 2018-11-07 10:40 | CONSULT ---
Subjective Date of Service: 11/07/18 Interval History: Admission Date: 11/06/18 Consult date 11/07/2018 Provider: Hospitalist service PCP: Dr. Gray Cannery Tender Engineer: Dr. Bowman CHIEF COMPLAINT: Headaches Reason for consult: Cardiac management HISTORY OF PRESENT ILLNESS: Mr. Wesley is a 68-year-old man with a history as below admitted with severe left upper headache worsened with exertion. He also has intermittent palpitations worse with exertion. He denies any chest discomfort, change in breathing or focal neurological deficits. Neurology has been consulted. A CTA of the head showed no hemorrhage or thrombus. He feels significantly better since admission and ambulated today with only a low level left sided top of head headache. His left arm has been in a sling a lot since the pacemaker. He is concerned xarelto may be causing the headache and wants to go back on pradaxa which he took before. PAST MEDICAL HISTORY: 1. Atrial flutter, at time of 08/2017 EPS felt to be atypical/left sided 2. Paroxysmal atrial fibrillation 2. 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 3. JOSE, for which he wears a BiPAP. 4. Factor XI deficiency. 5. Hypertension. 6. Degenerative disk disease. PAST SURGICAL HISTORY: 1. Pacemaker 10/28/2018 2. Aortic valve replacement #[address] Joe 11/2012 FAMILY HISTORY: His mother was diabetic and had CAD. Father had a history of prostate cancer. SOCIAL HISTORY: He is a nonsmoker. Does not drink alcohol. 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 medication list reconciled verbally and reviewed on 11/05/18, Allergies: Penicillins 11/20/12 Surgical Mesh 10/12/15 - reaction to mesh Adhesive 12/26/17 Torsemide 06/21/18 allergy list reviewed on 11/05/2018 Medications Active Medications: Acetaminophen (Tylenol Tab*) 650 mg PO Q4H PRN PRN Reason: FEVER/PAIN Last Admin: 11/06/18 23:15 Dose: 650 mg Metoprolol Succinate (Toprol Xl Tab*) 100 mg PO DAILY [facility] Last Admin: 11/07/18 08:28 Dose: 100 mg Pantoprazole Sodium (Protonix Tab*) 40 mg PO DAILY [facility] Last Admin: 03/28/19 08:29 Dose: 40 mg Ramipril (Altace Cap*) 10 mg PO DAILY [facility] Last Admin: 11/07/18 08:29 Dose: 10 mg Tamsulosin HCl (Flomax Cap*) 0.4 mg PO DAILY [facility] Last Admin: 11/07/18 08:28 Dose: 0.4 mg Home Medications: Testosterone Cypionate 2 ml IM Q21D 01/25/18 [History Confirmed 11/06/18] Flecainide TAB* [Tambocor TAB*] 50 mg PO BID 10/28/18 [History Confirmed ] Metoprolol Succinate XL TAB* [Toprol XL TAB*] 100 mg PO DAILY 11/06/18 [History Confirmed 11/06/18] [place]-3 Fatty Acids (Nf) [Fish Oil (NF)] 2,000 mg PO DAILY 11/06/18 [History Confirmed 11/06/18] Omeprazole (Nf) [Prilosec (NF)] 40 mg PO DAILY 11/06/18 [History Confirmed 11/06] Ramipril CAP* [Altace CAP*] 10 mg PO DAILY 11/06/18 [History Confirmed 11/06/18] Tamsulosin CAP* [Flomax CAP*] 0.4 mg PO DAILY 11/06/18 [History Confirmed ] Xarelto 20 mg po daily until recently Review of Systems - Measurements Intake and Output: Intake and Output Last 24 Hours 11/05/18 11/06/18 11/07/18 11/08/18 06:59 06:59 06:59 06:59 Intake Total 0 Balance 0 Weight 261 lb 11.2 oz Intake: Oral 0 Other: Estimated Void Medium # Voids 3 - Review of Systems Constitutional Symptoms: Negative: Weight Gain, Weight Loss, Weakness, Fatigue, Night Sweats, Unexplained Falls Dermatology: Negative: Rash, Skin Lesions HEENT: Negative: Change in Hearing, Vertigo Eyes: Negative: Change in Vision, Double Vision Thyroid: Negative: Goiter, Thyroid Nodule, Cold Intolerance, Heat Intolerance, Weight Loss, Weight Gain Pulmonary: Negative: Cough, Sputum, Hemoptysis, Respiratory Distress, Shortness of Breath, Asthma Cardiology: Positive: Palpitations Negative: Chest Pain, Shortness of Breath, Swelling of Ankles, Peripheral Vascular Dis, Edema, Faintness, Syncope, Paroxysmal Nocturnal Dyspnea, Orthopnea Gastroenterology: Negative: Nausea, Vomiting, Blood in Stools, Change in Bowel Habits, Haematemesis, Melena Genital - Urinary: Negative: Dysuria, Hematuria Musculoskeletal: Negative: Joint Pain, Joint Stiffness, Arthritis Endocrinology: Positive: Obesity Negative: Calluses, Hirsutism, Polydipsia, Polyuria Hematologic/Lymphatic: Positive: Use of Anticoagulant Negative: Hx Leukemia, Hx Lymphoma, Use of Antiplatelet Drugs Neurology: Negative: Headaches, Change in Vision, Diplopia, Dizziness, Change in Balancing, Change in Coordination, Change in Memory, Change in Speech, Change in Sphincter Function, Change in Walking, Numbness\Paresthesiae, Hx of Stroke\ TIA, Hx Seizures Psychiatry: Negative: Unusual Anxiety, Suicidal Ideation Allergic/Immunologic: Negative: Hx Anaphylaxis, Hx Angioedema, Hx HIV, Immunocompromise Review of Systems Statement: All other review of systems negative, unless stated above. Objective Vital Signs: Temp Pulse Resp BP Pulse Ox 98.1 F 68 18 135/77 94 11/07/18 07:17 11/07/18 07:17 11/07/18 08:00 11/07/18 07:17 11/07/18 07:17 Oxygen Devices in Use Now: None Appearance: nad, pleasant Ears/Nose/Mouth/Throat: Clear Oropharnyx, Mucous Membranes Moist Neck: NL Appearance and Movements; NL JVP, Trachea Midline Respiratory: Symmetrical Chest Expansion and Respiratory Effort, Clear to Auscultation Cardiovascular: - - irregular, no more than 1/6 systolic murmur, distant, sternotomy site healed, pacemaker site healing well no evidence of infection Abdominal: - - soft, obese, nontender Extremities: No Edema Skin: No Rash or Ulcers Neurological: Alert and Oriented x 3 Laboratory Results: 11/06/18 17:31 11/07/18 05:40 INR (Anticoag Therapy) 1.06 (0.77-1.02) H 11/07/18 05:40 Total Bilirubin 0.70 mg/dL (0.2-1.0) 11/06/18 17:31 AST 33 U/L (13-39) 11/06/18 17:31 ALT 52 U/L (7-52) 11/06/18 17:31 Alkaline Phosphatase 78 U/L (34-104) 11/06/18 17:31 Total Protein 6.5 g/dL (6.4-8.9) 11/06/18 17:31 Albumin 4.1 g/dL (3.2-5.2) 11/06/18 17:31 Globulin 2.4 g/dL (2-4) 11/06/18 17:31 Albumin/Globulin Ratio 1.7 (1-3) 11/06/18 17:31 Triglycerides 289 mg/dL 11/07/18 05:40 Cholesterol 129 mg/dL 11/07/18 05:40 LDL Cholesterol 47 mg/dL 11/07/18 05:40 HDL Cholesterol 24.1 mg/dL 11/07/18 05:40 11/06/18 11/06/18 11/06/18 17:31 20:07 23:54 Troponin I 0.02 0.03 0.01 Diagnostic Imaging: ct head 11/06/2018: minimal plaque SIRENA, normal head cta, no acute pathology noted ekg 11/06/2018: ATrial flutter, diffuse deep TWI across precordium and 1/avl with QTc calculated 488 which fits qualitative evaluation ekg 10/29/2018: -PHARMACY TECHNICIAN INFUSION device interrogation 11/06/2018: 42% PHARMACY TECHNICIAN INFUSION since 10/29, no ventricular arrhythmias Echocardiogram - (03/09/2017) Moderate concentric LVH. Normal global wall motion. Visual EF is 55-60%. Normal diastolic filling pattern. Left atrial cavity is mild to moderately dilated. Right atrial cavity is slightly dilated. Right ventricle cavity is dilated. Bioprosthetic trileaflet aortic valve with trace regurgitation and functioning normally. Structurally normal mitral valve with mild ( Grade I ) regurgitation. Structurally normal tricuspid valve with mild regurgitation. No evidence of PHTN. Structurally normal pulmonic valve with trace regurgitation. Moderately dilated ascending aorta. echo 11/07/2018 moderate LVH, normal LVEF, normally functioning aortic bioprosthetic valve, 4.7 cm ascending aorta, no significant pericardial effusion Cardiac Procedures: Cardiac Catheterization - (11/22/2012): Normal coronary arteries Assessment/Plan 1. Headaches - As per Primary service/Neurology 2. History of bioprosthetic AVR 3. Paroxysmal atrial fibrillation/flutter 4. AV node disease s/p pacemaker Patients EKG changes are likely related to memory T waves from intermittent ventricular pacing. He has no evidence of myocardial ischemia. It does not appears based on review of studies there is evidence of elevated intracranial pressure. An echocardiogram is pending He is concerned that xarelto may have caused the headache and states he tolerated pradaxa well previously. When ok from a Neurologic standpoint, would restart pradaxa 150 mg po bid. Out of precaution given his T wave/QT morphology would d/c the flecainide for now until he follows up with Dr. Bowman for further evaluation and management. Thank you for allowing me to participate in the cardiovascular care of this patient. Please do not hesitate to contact me with questions or concerns.
--- NOTE | 2018-11-07 12:38 | CONS ---
CC: Dr. Gray; Dr. Bowman; Dr. Lao * CONSULTATION REPORT: DATE OF CONSULT: 11/07/18 PRIMARY CARE PROVIDER: Dr. Gray. CARDIOLOGISTS: Dr. Bowman and Dr. Lao. REASON FOR CONSULTATION: Headaches. HISTORY OF PRESENT ILLNESS: Mr. Wesley is a very nice 68-year-old gentleman who has a history of atrial flutter and sick sinus syndrome, status post pacemaker placement on 10/28/18, has a history of factor XI deficiency and obstructive sleep apnea, wearing a BIPAP at night, hypertension, degenerative disk disease, had the pacemaker placement on 10/28/18 and did well. He at the time was previously on Pradaxa but was switched to Xarelto. Sunday of last week on 11/01/17, he started noticing headaches, which were always left sided. He described the headaches as throbbing in nature, no stabbing quality. They would come and go but seemed to be associated with some exertion. At times, he notes that the pain went up to 9/10 at worst. The pain was mainly centered on the left side of his head, sometimes behind his eye. At times would generalize more but seemed to be more left sided. His noted that he had conjunctival injection during the headaches and some tearing. He denied any runny nose or stuffiness. He had no other neurologic symptoms associated with, including no focal weakness, numbness, tingling. No speech problem, swallowing problems, hearing changes. No vision changes or vision loss or scotoma. No significant neck pain with flexion and extension. No significant photophobia or phonophobia. No recent fevers, chills, or night sweats. No recent illnesses. No recent travel or insect or animal bites he is aware of. He noted that when he would sit down and rest, it would get better. Two nights ago, he noted that when he went to lie flat, his headache worsened dramatically but then slowly improved. He has been taking Tylenol for the headaches, which seemed to help. Occasionally, when he does any exercise, he will notice increasing palpitations and then notices the headache will worsen but states that he generally has a dull headache. He has noted that at certain times with the headaches, he has had significantly elevated blood pressures with diastolics over 100. He is unclear whether or not he has had elevated blood pressures every time as he has not always taken it. He had at least 1 headache, which woke him up from sleep. At times, he will feel dizzy when he stands up but denies any ongoing dizziness or vertigo. He has been walking around. He notes that he had a mild headache this morning, but it is improved throughout the morning and he did walk around the hallway several times. He feels that since switching to the Xarelto he has had worsening headaches and feels that the headaches came on after he started the Xarelto. He was told to come off with Xarelto and has been off of it for the last 2 days and he feels like he is better. He is curious if maybe the Xarelto is what had caused his headaches, but he continues to get them. Down in the ER, he did have some EKG changes including T-wave inversions and he was subsequently admitted for concern of the headache and for further workup. Since his admission, he has had further imagin. Head CTA, which showed no intracranial abnormalities. CTV showed no venous abnormalities and CTA of the neck showed minimal atherosclerotic disease on the right internal carotid artery, otherwise normal neck. No dissections were appreciated in the head or the neck. The vertebral arteries were patent. No stenosis or dissection appreciated. His CT of the head showed no abnormal enhancement. No mass effect. No bleeding. 2. While an LP was considered, it was felt that because of his factor XI deficiency, because of his recent procedure and blood thinners, it was too risky. In addition, he had had symptoms for almost a week and while early subarachnoid hemorrhages can be missed on CT scan, it is likely that after 5 or 6 days, one would appear were it present. Since his admission to the hospital, he has done well over night. He continues to be in atrial flutter with some PVCs, occasionally will feel them. His headaches have waxed and waned, but have generally been in the 3/10 range. No new symptoms since this admission. PAST MEDICAL HISTORY: As noted above. PAST SURGICAL HISTORY: Includes the pacemaker placement on 10/28/18, hip replacements bilaterally, carpal tunnel surgery, knee arthroscopy bilaterally, right total knee, right shoulder surgery, tonsillectomy, and he had Bovine aortic valve replacement in the past. MEDICATIONS AT HOME: He is on: 1. Testosterone. 2. Flecainide 50 mg p.o. b.i.d., which has been stopped. 3. Fish oil 2000 mg p.o. daily. 4. Altace 10 mg daily. 5. Flomax 0.4 mg daily. 6. Toprol-XL 100 mg daily. 7. Prilosec 40 mg daily. He was previously on Xarelto but that was stopped 2 days ago. ALLERGIES: He has allergies to ADHESIVES and PENICILLIN. FAMILY HISTORY: Significant for coronary artery disease and father with prostate cancer. SOCIAL HISTORY: Denies any tobacco, alcohol, or drug use. 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 REVIEW OF SYSTEMS: His review of systems in 14 organ systems is noted above; otherwise negative. PHYSICAL EXAM: Vital Signs: Blood pressure 133/78 to 108/60. He has been afebrile. Pulse rate in the 60s, respiratory rate 13 to 20, O2 saturations 95% to 97% on room air. In general, he is a well nourished, well developed, obese gentleman, in no acute distress. He is lying in his hospital bed. He is very pleasant, well dressed, well groomed. HEENT: He is normocephalic, atraumatic. Sclerae are anicteric. He has pterygiums bilaterally. Mucous membranes are moist. Oropharynx is clear. Nares are patent. Neck is supple. No thyromegaly. No carotid bruits. No meningismus. Chest is clear to auscultation bilaterally. Cardiovascular: Currently regular rate and rhythm with no murmurs present. Abdomen is obese, nontender. Extremities: There is no clubbing, cyanosis, or edema throughout. On neurologic exam, he is awake, alert, and oriented x3. His speech is fluent. There is no dysarthria. Repetition is intact. Recall of recent and remote events is intact. Vocabulary is intact. His mood is dysthymic. Affect is mood congruent. Cranial nerves II through XII: Pupils are equally round and reactive to light and accommodation. Extraocular muscles are intact through-out. No nystagmus, no diplopia, no ptosis noted. Visual nazario are full to confrontation. Face is symmetric. Facial sensation is intact to light touch. There are no cords or tenderness in the left gnosticist. Hearing is intact bilaterally. Palate raises symmetrically. Tongue is midline. Sternocleidomastoid and trapezius are 5/5. Funduscopic examination showed some flattening of the disk but no obvious papilledema bilaterally. Motor Exam: He is spontaneously moves all extremities antigravity 5/5 throughout. Tone and bulk are both normal. Finger-to- nose, rapid alternating movements, [id number] are both normal without tremors, resting or intention or postural. DTRs are 1+ and symmetric in the upper and lower extremities with withdrawal to Babinski bilaterally. Sensation is intact to light touch and pinprick in all 4 extremities. Gait: He is able to stand up with minimal headache. He is able to walk around. Feel slightly dizzy but otherwise his gait is steady. He had no Brudzinski or Kernig sign. DIAGNOSTIC DATA/LAB DATA: Imaging as noted above. Lab work includes complete metabolic profile which was essentially normal. Triglyceride of 289, cholesterol 129, LDL 47, HDL of 24. INR 1.06. CBC with diff, hematocrit of 47, platelet count of 138, MPV of 7.1. ASSESSMENT AND PLAN: Mr. Wesley is a 68-year-old gentleman with history of bovine aortic valve replacement with a history of pacemaker placement on with a history of atrial flutter, history of hypertension, and factor XI deficiency, who presented to the hospital with an almost one week history of headaches that started last Sunday on 11/01/18. The headaches are noted to be exertional at times. At times can be severe in nature up to 9/10 or throbbing in nature, always on the left side, sometimes behind the left eye. His has noted that he has had some conjunctival injection with the headaches and some tearing. No rhinorrhea or stuffiness. No cords or redness in the left gnosticist. He has had no recent illnesses, fevers, chills, has no meningismus on examination. No significant photophobia or phonophobia. No significant nausea or vomiting. CTA of the head and neck showed no evidence of any intracranial abnormalities including no dissection or aneurysms. There is no evidence of subarachnoid hemorrhage and CT of the brain showed no mass effect or other abnormalities. 1. New onset headache. The differential for these headaches include both primary and secondary headaches. At this time, I see no obvious secondary causes, although he did have some mild flattening of his optic disk, my suspicion for underlying intracranial hypertension is low. With that said, I would like for him to have an outpatient full dilated eye exam, which we will try to arrange as an outpatient in the next week. Unfortunately, because of this factor XI deficiency, I do not feel comfortable doing a lumbar puncture, but I see no obvious papilledema that would suggest the high intracranial pressure at this time. With the autonomic symptoms he is having, certainly, both short-lasting unilateral neuralgiform headache attacks with cranial autonomic symptoms (KIRILL) and short-lasting unilateral neuralgiform headache with conjunctival injection and tearing (SUNCT) are in the differential. In addition, paroxysmal hemicrania is in the differential, all of which could represent similarly. My suspicion for underlying temporal arteritis is low but I will add an ESR and vasculitic profile. My suspicion for underlying migraine headaches is low given the lack of history in the past and the nature of these headaches with autonomic symptoms. These do not sound like tension type headaches and suspicion for infectious causes is extremely low. Again I do not we need to do a lumbar puncture as the risks would outweigh the benefits. The plan at this point is: A. I would get an EEG to look for any localizing features or lateralizing features, which could suggest small lesion not seen on the CT scan. The plan will be to schedule him for an MRI once his pacemaker leads have matured which would be in a few weeks and I will plan to follow him up as an outpatient quickly and will arrange that. B. We need to schedule an eye exam to better look for evidence of papilledema, but my suspicion for intracranial hypertension is low at this time. C. Unfortunately, the treatment for both short-lasting unilateral neuralgiform headache with conjunctival injection and tearing (SUNCT) and short-lasting unilateral neuralgiform headache attacks with cranial autonomic symptoms (KIRILL) as well as paroxysmal hemicrania is typically with indomethacin, which I do not want to give him given his history of heart problems and factor XI deficiency. At this point, I think treating him symptomatically with Tylenol is probably the best course of action with the plan to return to the ER with any new symptoms or worsening symptoms. D. We need to speak with Cardiology about management of his heart problems. Interestingly, once he started on Xarelto, he seemed to have worsening headaches and since he has been off of the Xarelto, his headaches have improved, although this may be coincidental and headaches are not listed as a typical side effect of Xarelto. It is possible that he could be having an unusual reaction. Flecainide can also be associated with headaches and he is currently off of that medication. I do think having cardiology touch base with him during this hospitalization to recommend treatment options for his ongoing cardiac issues is important. I will also attempt to speak with tax director on- call. 2. History of palpitations, history of bovine valve replacement, and history of pacemaker placement. Again as noted above, cardiology consult will speak to them. 3. History of factor XI deficiency. No current treatment at this time. 4. Hypertension. I have told him to keep a log of his blood pressures at home so that we can correlate with headaches and he will do so. The plan is to try to make any correlation between hypertension and these headaches, although it is difficult sometimes to tell whether the headaches are causing the high blood pressure or vice versa. He will keep his log and I plan to follow him up in the clinic in a few weeks. 5. Obstructive sleep apnea. Continue his BIPAP. Certainly obstructive sleep apnea can be associated with headaches, but he has had this for a long time and he wears his BIPAP religiously. The plan at this point is as noted above with plans for followup in my office in several weeks, which I will arrange. I will continue to follow him closely and make further recommendations if necessary. Thank you for the opportunity to participate in the care of this interesting patient. [id number]/[facility] #: [id number] MARY
[2018-11-07 14:14] VITALS: BP 148/62
--- NOTE | 2018-11-07 16:24 | ECHO ---
Patient: MANUEL GERMAIN [facility] Rec#: [id number] : 1950 Date: 11/07/2018 Age: 68y Height: 170 cm / 66.9 in Weight: 117.9 kg / 259.9 lbs Sex: M BSA: 2.3 Room#: [facility] Admit Date#: 11/06/2018 Type: Inpatient Referring: Timothy Ayers NP Reading: Pratik Peck DO Firestopper Installer: Antonietta Santana RN RDCS CC: Gurpreet Gray DO Transthoracic Echocardiogram Indication: Palpitations BP: 108/60 HR: 87 Rhythm: A-Flutter Findings History: Bovine AVR, pacemaker insertion for SSS 10/28/2018, A. flutter, HTN, JOSE, Factor XI deficiency. Technical Comments: The study quality is fair. The study is technically limited due to patient body habitus. Left Ventricle: The left ventricular chamber size is normal. Moderate concentric left ventricular hypertrophy is observed. Global left ventricular wall motion and contractility are within normal limits. There is normal left ventricular systolic function. The estimated ejection fraction is 60-65%. Ventricular septal wall motion has a post-operative appearance. The assessment of diastolic function is non-diagnostic. Left Atrium: The left atrial chamber size is normal. Right Ventricle: The right ventricular chamber size and systolic function are within normal limits. A pacemaker wire is visualized in the right ventricle. Right Atrium: The right atrium is mild to moderately dilated. A pacemaker wire is visualized in the right atrium. 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 Aortic Valve: There is no evidence of aortic regurgitation. The mean gradient of the aortic valve is 8 mmHg. The peak instantaneous gradient of the aortic valve is 14 mmHg. A bovine bio-prosthetic aortic valve is present. The bio-prosthetic aortic valve appears to be functioning normally. Mitral Valve: The mitral valve leaflets are mildly thickened. There is a trace of mitral regurgitation. There is no evidence of mitral stenosis. Tricuspid Valve: The tricuspid valve leaflets are normal. There is mild tricuspid regurgitation. No pulmonary hypertension is noted. There is no tricuspid stenosis. Pulmonic Valve: The pulmonic valve structure is not well visualized. There is a trace pulmonic regurgitation. There is no pulmonic stenosis. Pericardium: There is no significant pericardial effusion. A pericardial fat pad is visualized. Aorta: There is moderate dilatation of the ascending aorta. at 4.7 cm. There is mild dilatation of the aortic arch. The aortic root is not well visualized. Pulmonary Artery: The main pulmonary artery is not well visualized. Venous: The venous system is not well visualized. The inferior vena cava is not visualized. Conclusions The left ventricular chamber size is normal. Moderate concentric left ventricular hypertrophy is observed. Global left ventricular wall motion and contractility are within normal limits. There is normal left ventricular systolic function. The estimated ejection fraction is 60-65%. The left atrial chamber size is normal. The right ventricular chamber size and systolic function are within normal limits. A pacemaker wire is visualized in the right ventricle. The bio-prosthetic aortic valve appears to be functioning normally. There is no significant pericardial effusion. There is moderate dilatation of the ascending aorta. at 4.7 cm. Compared to prior study from 02/2017, no significant changes noted. Measurements Name Value Normal Range RVIDd (AP) 2D 3.3 cm (0.9 - 2.6) RVDdMajor (2D) 4.1 cm (2.2 - 4.4) RAd ISD 4CH 6.4 cm (3.4 - 4.9) RA (A4C)W 4 cm (2.9 - 4.6) IVSd (2D) 1.6 cm (0.6 - 1) LVPWd (2D) 1.6 cm (0.6 - 1) LVIDd (2D) 4.6 cm (3.6 - 5.4) LVIDs (2D) 2.8 cm - LV FS (2D) 39 % (25 - 45) Aortic Annulus 2.5 cm (1.4 - 2.6) Ao root diameter (2D) 3.3 cm (2.1 - 3.5) Ascending Ao 4.7 cm (2.1 - 3.4) Aortic arch 3.4 cm (1.8 - 3.4) LA dimension (AP) 2D 4.4 cm (2.3 - 3.8) LAd ISD 4CH 5.2 cm (2.9 - 5.3) LA ISD 4CH W 3.6 cm (2.5 - 4.5) Name Value Normal Range LA ESV BP (A/L) index 24.3 ml/m2 - Name Value Normal Range MV E-wave Vmax 0.93 m/sec - MV deceleration time 177 msec - LV septal e' Vmax 0.11 m/sec - LV lateral e' Vmax 0.14 m/sec - LV E:e' septal ratio 8.5 ratio - LV E:e' lateral ratio 6.6 ratio - Name Value Normal Range AV Vmax 1.8 m/sec - AV VTI 38.5 cm - AV peak gradient 14 mmHg - AV mean gradient 8 mmHg - LVOT diameter 2.2 cm - LVOT Vmax 1.1 m/sec - LVOT VTI 22.5 cm - LVOT peak gradient 5 mmHg - LVOT mean gradient 3 mmHg - DOI (VTI) 0.58 ratio - DOI (Vmax) 0.61 ratio - JANUARY (continuity Vmax) 2.3 cm2 - JANUARY (continuity VTI) 2.2 cm2 - GEORGE Vmax 0.47 m/sec - Name Value Normal Range TR Vmax 2.2 m/sec - TR peak gradient 19 mmHg - RAP 8 mmHg - RVSP 27 mmHg - Name Value Normal Range PV Vmax 1 m/sec -
--- NOTE | 2018-11-07 21:01 | EEG ---
ELECTROENCEPHALOGRAPHY: DATE OF STUDY: 11/07/18 - ROOM #447 PATIENT OF: Dr. Nicholas and Dr. Gray.* CLINICAL PROBLEM: This is a 68-year-old man who is being evaluated for possible underlying structural lesion with a constant headache and unable to get an MRI scan due to recent pacemaker placement. MEDICATIONS: Include: 1. Toprol. 2. Protonix. 3. Altace. 4. Flomax. 5. Tylenol. REPORT: With the patient awake, background cerebral activity consists of moderate amplitude posterior dominant 9 to 10 Hz rhythm. No activation procedures are performed. Frequent blinking artifacts are noted throughout this tracing, but no clear-cut epileptiform potentials, focal abnormalities, or major asymmetries of background are noted. CLINICAL IMPRESSION: This awake EEG is within normal limits. [id number]/[facility] #: [id number] MARY
--- NOTE | 2018-11-08 01:14 | DS ---
CC: Dr. Bowman; Dr. Nicholas; Dr. Campbell; Dr. Peck; Dr. Fernandes, Dr. Werner; Dr. Topete; Dr. Gray * DISCHARGE SUMMARY: DATE OF ADMISSION: 11/06/18 DATE OF DISCHARGE: 11/07/18 PRIMARY CARE PROVIDER: Dr. Gurpreet Gray. DISCHARGE DIAGNOSES: New onset headache with differential including headache due to medications which could be Pradaxa versus flecainide versus an attack of unilateral neuralgiform headache. SECONDARY DIAGNOSES: 1. History of recently placed pacemaker for AV teetee disease on 10/28/[address] Bowman. 2. Atrial flutter. 3. History of obstructive sleep apnea, on BiPAP. 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 5. Hypertension. 6. Degenerative disk disease. 7. History of status post aortic valve replacement. MEDICATIONS AT DISCHARGE: Include: 1. Pradaxa 150 mg b.i.d. 2. Testosterone 2 mL IM every 21 days. 3. Flomax 0.4 mg daily. 4. Altace 10 mg daily. 5. Prilosec 40 mg daily. 6. [place]-3 fatty acids 2 g daily. 7. Toprol-XL 100 mg daily. Flecainide was discontinued from recommendation of Dr. Peck. The patient also was switched from Xarelto to Pradaxa since the onset of headache coincided with the patient being switched from one medication to the other. CONSULTATIONS DURING THE HOSPITAL STAY: Included Dr. Peck from Cardiology, Dr. Nicholas from Neurology. LABORATORY DATA AND STUDIES PERFORMED DURING THE HOSPITAL STAY: Include on , a sodium of 140, potassium 4.0, chloride 103, carbon dioxide 28, BUN 14, and creatinine 1.05. Liver function tests were unremarkable at admission. The patient's troponin ranged from 0.01 to 0.03. Cholesterol total was 129, triglycerides of 289, LDL 47, and HDL 24. Hemoglobin A1c was 5.7. CBC: White blood cell count of 7.9, hemoglobin 16.2, hematocrit of 47, and platelets of 138. Transthoracic echocardiogram obtained on the day of discharge showed no change comparing from 2017. "Echocardiogram with EF of 60% to 65%. The bioprosthetic aortic valve appeared to be functioning normally." The patient had CT angiogram obtained on 11/06/18, showed "normal head CTA." The neck CTA showed minimally atherosclerotic, nonstenotic right internal carotid artery. Otherwise normal neck CTA. HOSPITALIZATION COURSE: Jayesh Wesley is a 68-year-old male who was just discharged a week ago after a pacemaker insertion by Dr. Bowman for AV teetee dysfunction. He stated that during that time his Pradaxa was also replaced with Xarelto due to ease of once a day dosing. Ever since his discharge on , he has had episodes of left-sided headaches mostly positional, mostly with exercise. Due to that, he came in to the ED for evaluation. Here his _ was basically unremarkable. Due to his recent pacemaker, he was unable to have an MRI performed. He was seen by Neurology by Dr. 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 Nevertheless, the headache had already gotten better. The EEG as reported verbally by Dr. Nicholas showed no epileptiform abnormalities. Dr. Peck saw the patient from Cardiology and noted that flecainide could cause headaches. The patient also coincided his onset of headache with that the patient was switched from Pradaxa to Xarelto. Dr. Peck was okay with switching the patient back to Pradaxa. At this point, the patient is going to be placed back on Pradaxa. His Xarelto is going to be discontinued. His flecainide is going to be discontinued. The patient is recommended to follow up with his primary care provider in approximately 4 to 7 days. He already has a scheduled appointment with Dr. Nicholas on 11/22/18 at noon. The patient is also asked to keep his appointment with Dr. Bowman next week as already scheduled. PHYSICAL EXAMINATION AT THE TIME OF DISCHARGE: Vital Signs: Blood pressure of 148/62, heart rate of 70 and regular, respiratory rate 16, oxygen saturation 97 % on room air, and temperature 98.2. General: This is a very pleasant 68-year- old male who is in no acute distress. Alert, awake, and oriented x3. HEENT: Head atraumatic and normocephalic. Eyes: Pupils are equal, round, and reactive to light and accommodation. Please note that the patient has conjunctiva with bilaterally on each iris of bilateral eyes. Neck: Supple. No JVD, no bruits bilaterally. Cardiovascular: Regular rate and rhythm. No murmur. Respiratory: Clear to auscultation bilaterally. Abdomen: Soft and nontender. Bowel sounds are present in all 4 quadrants. Extremities: There is no edema. Pulses are +2 bilaterally. No clubbing or cyanosis. Neuro evaluation: Speech clear. Cranial nerves II through XII grossly intact. Motor strength is 5/5 bilaterally. In addition to the above mentioned, Dr. Nicholas recommended for the patient to undergo a funduscopic ophthalmologic evaluation and the patient was referred to call Dr. Topete's office and schedule an appointment. Please note that this is a short summary of the patient's hospital stay. Please refer to further medical records for details. TIME SPENT: Approximately 40 minutes were spent on patient's discharge. [id number]/[facility] #: [id number] MTDD
[2018-11-08 22:03] LABS: Complement C3 134 mg/dL (75 - 175)
[2018-11-11 12:35] LABS: C-ANCA Negative (Negative)
== END 2018-11-07 19:00 | disposition home or self-care (01) | DRG 103 ==
LOC: ED 12:06 → MEDTELE 22:17
PROVIDERS: ADMIT Internal Medicine; ATTEND Internal Medicine
DX: R51 Headache (principal); I48.92 Unspecified atrial flutter; D68.2 Hereditary deficiency of other clotting factors; I48.0 Paroxysmal atrial fibrillation; G44.41 Drug-induced headache, not elsewhere classified, intractable; T50.995A Adverse effect of other drugs, medicaments and biological substances, initial encounter; G44.059 Short lasting unilateral neuralgiform headache with conjunctival injection and tearing (SUNCT), not intractable; G47.33 Obstructive sleep apnea (adult) (pediatric); R00.2 Palpitations; I49.5 Sick sinus syndrome; I49.8 Other specified cardiac arrhythmias; I10 Essential (primary) hypertension; M51.36 Other intervertebral disc degeneration, lumbar region; Z96.651 Presence of right artificial knee joint; Z96.643 Presence of artificial hip joint, bilateral; Y92.9 Unspecified place or not applicable; Z95.2 Presence of prosthetic heart valve; Z95.0 Presence of cardiac pacemaker; Z99.89 Dependence on other enabling machines and devices; Z79.890 Hormone replacement therapy; Z79.899 Other long term (current) drug therapy; Z88.0 Allergy status to penicillin; Z91.048 Other nonmedicinal substance allergy status; Z83.3 Family history of diabetes mellitus; Z82.49 Family history of ischemic heart disease and other diseases of the circulatory system; Z80.42 Family history of malignant neoplasm of prostate
CPT/HCPCS: 36415; 70450; 70496; 70498; 80048; 80053; 80061; 83036; 83516; 83605; 84484; 85025; 85610; 85652; 86038; 86140; 86160; 86255; 93005; 93306; 95819; 99284; A9270-GY; Q9967

== ENCOUNTER 2018-11-20 16:12 | Inpatient (IN) | payer MEDICARE, BC ==
--- OUTSIDE RECORDS SUMMARY | 2018-12-02 10:04 | XMS REPORT | Continuity of Care Document ---
:1950 External Reference #:[id number] Author Name Danielle Gabriel Care Team Providers Name Role Phone Gurpreet [place] D.O. Primary Care Physician Unavailable Payers Date Identification Numbers Payment Provider Subscriber Policy Number: [id number] Medicare Jayesh Wesley PayID: [id number] [address] [place] [address] Policy Number: [id number] [facility] Kori Wesley PayID: [id number] [address] [place] [address] Advance Directives Description No Information Available Problems [...] 1 by mouth Joanna s every day Bunnell, as needed M.DBlanca for weight gain greater [...] s tablet by S. - mouth every Maghaydah, 10/14 day M.D. Cyclobenzaprine 11/21 Hx Tablets 10mg 90tab 1 tablet by Z96.641 Sarah HCL s mouth every Bordoni, - 8 hours as OIL SPECULATOR 05/08 needed for pain. Lovenox 11/04 Hx Solution 30mg/0.3M 28uni 1 injection . L ts subcutaneous Bordoni, - every 24 OIL SPECULATOR 05/08 hours directed Percocet 11/04 Hx Tablets 5-325mg 60tab 1-2 tablets . Madeline s by mouth Dom, - every 8 M.D. 04/09 hours needed for pain Colace 11/04 Hx Capsules 100mg 90cap 1 by mouth . s up to 3 Bordoni, - times a day OIL SPECULATOR 05/08 as needed for constipation . Oxygen 04/13 Hx Misc 1unit Discontinue s o2 at night MD Rogelio - 05/08 Metoprolol 07/01 Hx Tablets 100mg 90tab Take 1/2 Qutaybeh Succinate ER ER 24HR s Tablet By S. - Mouth Daily. Wallace, 01/23 M.D. Diltiazem HCL ER 04/29 Hx Caps ER 120mg 90cap 1 by mouth Quta 12HR s every day SBlanca Gonsalez, 10/14 M.D. Diltiazem CD 07/08 Hx Caps ER 120mg 30cap 1 po qd 24HR s Ordering - Provider 04/29 Krill Oil 04/02 Hx Capsules 300mg Other Mansfield-3 Ordering - Provider 06/27 Chandler-E 04/02 Hx Tablets 400mg 1 po qd Ordering - Provider 05/08 Metoprolol 04/02 Hx Tablets 100mg 90tab 1 po daily. Pidead Succinate ER 24HR Alma Delia Fleming D.O. 07/01 Aspirin 01/29 Hx Tablets 325mg 30tab 1 po qd Alma Delia Morales D.O. 11/24 Metoprolol 01/29 Hx Tablets 100mg 30tab [...] 24HR Alma Delia Fleming.O. 01/10 Fish Oil 00 Hx Capsules 1000mg 1 daily Unknown /0000 - 04/02 Aspirin Hx Chewtabs 81mg 1 by mouth Unknown /0000 every day ( - On Hold) 05/08 Celecoxib Hx Capsules 200mg once daily Unknown / - Colace Hx Unknown /0000 - 06/08 Pradaxa Hx Capsules 150mg 1 cap by Unknown /0000 mouth twice - a day 10/14 Colchicine Hx Tablets 0.6mg take 2 tabs Unknown /0000 by mouth - once then 11/05 take aditional tab1 hour later as needed. Medications Administered in Office Medication Date Status Form Strength Qnty SIG Indications Ordering Provider Depomedrol Administered Injection Roula 40MG 018 Deonte RPA-C Depomedrol Administered Injection Madeline 40MG 016 [...] Result H/L Range Note Pre Cath 10/24/2018 [facility] Partial 37.4 seconds High 26.0- 36.[address] [place] [address] PTT [phone] CBC Auto 10/24/2018 [facility] White Blood 8.0 10^3/uL N 3.5- 10.[address] [place] [address] [phone] Red Blood Count 5.66 10^6/uL High 4.18-5.48 [...] Red Blood Cells % 0.1 Inr/Protime 10/24/2018 [facility] Inr 1.02 N 0.77-1.[address] [place] [address] [phone] Basic Metabolic 10/24/2018 [facility] Sodium 136 mmol/L N 135- [address] [place] [address] [phone] Potassium 4.3 mmol/L N 3.5-5.0 Chloride 104 mmol/L N 101-111 Co2 Carbon Dioxide 22 mmol/L N 22-32 Anion Gap 10 mmol/L N 2-11 Glucose 87 mg/dL N 70-100 Blood Urea Nitrogen 25 mg/dL High 6-24 Creatinine 1.04 mg/dL N 0.67-1.17 BUN/Creatinine Ratio 24.0 High 8-20 Calcium 9.2 mg/dL N 8.6-10.3 Egfr Non- 71.2 >60 Egfr 86.2 >60 1 CBC Auto Diff 02/25/2018 [facility] White Blood 6.9 10^3/uL N 3.5-10.[address] [place] [address] [phone] Red Blood Count 5.84 10^6/uL High 4.00-5.40 [...] Blood Cells % 0.1 Laboratory test 02/25/2018 [facility] B-Type 55 pg/mL [address] [place] [address] Peptide BNP [phone] Basic Metabolic 02/25/2018 [facility] Sodium 139 mmol/L N 135- [address] [place] [address] [phone] Potassium 4.0 mmol/L N 3.5-5.0 Chloride 105 mmol/L N 101-111 Co2 Carbon Dioxide 26 mmol/L N 22-32 Anion Gap 8 mmol/L N 2-11 Glucose 103 mg/dL High 70-100 Blood Urea Nitrogen 23 mg/dL N 6-24 Creatinine 1.00 mg/dL N 0.67-1.17 BUN/Creatinine Ratio 23.0 High 8-20 Calcium 9.5 mg/dL N 8.6-10.3 Egfr Non- 74.8 >60 Egfr 90.5 >60 3 Laboratory test 02/21/2018 [facility] B-Type <pending> finding [address] [place] [address] Peptide BNP [phone] Laboratory test 07/17/2017 [facility] Magnesium 2.0 mg/dL N 1.9-[address] [place], [place] [id number] [phone] CBC Auto Diff 07/17/2017 [facility] White Blood Count 8.1 10^3/ uL N 3.5-[address] 0[address]8 [place] [address] [phone] Red Blood Count 6.09 10^6/uL High 4.0-5.4 [...] Blood Cells % 0.1 Thyroid Panel 07/17/2017 [facility] Free T4 (Free 0.79 ng/dL N 0.61-1.12 [facility] Thyroxine) [place] [address] [phone] Thyroxine 6.29 g/mL N 6.09-12.23 TSH (Thyroid Stim Horm) 3.09 mcIU/mL N 0.34-5.60 Laboratory test 07/17/2017 [facility] Uric Acid 7.3 mg/dL N 4.4-7.6 finding [address] [place] [address] [phone] Basic Metabolic 07/17/2017 [facility] Potassium 4.1 mmol/L N 3.5-5.0 Panel [address] [place] [address] [phone] Chloride 102 mmol/L N 101-111 Co2 Carbon Dioxide 26 mmol/L N 22-32 Glucose 76 mg/dL N 70-100 Blood Urea Nitrogen 9 mg/dL N 6-24 Creatinine 0.99 mg/dL N 0.67-1.17 BUN/Creatinine Ratio 9.1 N 8-20 Calcium 9.0 mg/dL N 8.6-10.3 Egfr Non- 75.9 >60 Egfr 97.6 >60 4 Sodium 137 mmol/L N 133-145 Anion Gap 9 mmol/L N 2-11 Type & Screen 11/05/2015 [facility] Patient Blood Type A Positive N [address] [place] [address] [phone] Antibody Screen NEGATIVE N Comp Metabolic Panel 11/05/2015 [facility] Sodium 135 mmol/L N 133-145 [address] [place] [address] [phone] Potassium 3.9 mmol/L N 3.5-5.0 Chloride 101 [...] 100.2 N >60 5 Laboratory test 11/05/2015 [facility] Partial 37.2 High 26.0- 36.[address] [place] [address] PTT [phone] Inr/Protime 11/05/2015 [facility] Inr 1.05 N 0.89-1.[address] [place] [address] [phone] CBC No Diff 11/05/2015 [facility] White Blood 7.6 10^3/uL N 3.5-10.8 [place] [address] [phone] Red Blood Count 6.03 10^6/uL High 4.0-5.4 [...] um3 N 7.4-10.4 Arterial Blood Gas 11/22/2012 [facility] PH Arterial 7.37 7.35-7.[address] [place] [address] [phone] Pco2 Arterial 44 mmHg 35-45 Po2 Arterial 33 mmHg Low 80-100 O2 Saturation Arterial 69.7 % Low 95-98 Base Excess Arterial -0.3 -2.0-2.0 6 Hco3 Arterial 23.7 mmol/L Arterial Blood Gas 11/22/2012 [facility] PH Arterial 7.40 7.35-7.[address] [place] [address] [phone] Pco2 Arterial 36 mmHg 35-45 Po2 Arterial 73 mmHg Low 80-100 O2 Saturation Arterial 96.9 % 95-98 Base Excess Arterial -1.9 -2.0-2.0 7 Hco3 Arterial 23.3 mmol/L Cath Panel 11/21/2012 [facility] Activated 37.9 High 22.18- 37.[address] [place] [address] Thrombo Time [phone] Inr/Protime 11/21/2012 [facility] Inr 0.94 0.87-0.[address] [place] [address] [phone] Basic 11/21/2012 [facility] Sodium 137 mmol/L 133-[address] [place] [address] [phone] Potassium 4.4 mmol/L 3.5-5.0 Chloride 104 mmol/L 101-111 Co2 Carbon Dioxide 27.0 mmol/L 22-32 Anion Gap 6.0 mmol/L 2-11 Glucose 117 mg/dL High 70-100 Blood Urea Nitrogen 18 mg/dL 6-24 Creatinine 1.00 mg/dL 0.50-1.40 BUN/Creatinine Ratio 18.0 8-20 Calcium 9.4 mg/dL 8.1-9.9 Egfr Non- 76.0 >60 Egfr 97.7 >60 8 CBC With 11/21/2012 [facility] White Blood 5.2 10^3/uL 4.8- 10.8 Manual Diff [address] [place] [address] [phone] Red Blood Count 5.33 10^6/uL 4.0-5.4 Hemoglobin [...] (or dialysis) Procedures Date Code Description Status 11/07/2018 19733 ECHO Transthorasic Realtime 2D W Doppler & Color Flow Hosp Completed 10/28/2018 74072 Moderate Sedation Services; Same Phys Intl 15 Mins; PT >=5 Completed Years 10/28/2018 06739 Perm Pacemaker Av Sequential Atrial And Ventricular Completed 10/15/2018 11100 EKG Tracing & Interpretation Completed 10/04/2018 94469 Implantable Cardio System Loop Recorder Sys Remota Data Completed Acquistio 10/04/2018 16499 Interrogation Dev Loop Recorder Incl Physician Completed Analysis,Rev,Repor 09/03/2018 13608 Implantable Cardio System Loop Recorder Sys Remota Data Completed Acquistio 09/03/2018 99521 Interrogation Dev Loop Recorder Incl Physician Completed Analysis,Rev,Repor 08/03/2018 64562 Implantable Cardio System Loop Recorder Sys Remota Data Completed Acquistio 08/03/2018 92342 Interrogation Dev Loop Recorder Incl Physician Completed Analysis,Rev,Repor 07/03/2018 59806 Implantable Cardio System Loop Recorder Sys Remota Data Completed Acquistio 07/03/2018 16437 Interrogation Dev Loop Recorder Incl Physician Completed Analysis,Rev,Repor 06/21/2018 02475 EKG Tracing & Interpretation Completed 06/02/2018 29258 Interrogation Dev Loop Recorder Incl Physician Completed Analysis,Rev,Repor 06/02/2018 94872 Implantable Cardio System Loop Recorder Sys Remota Data Completed Acquistio 05/02/2018 80781 Implantable Cardio System Loop Recorder Sys Remota Data Completed Acquistio 05/02/2018 02514 Interrogation Dev Loop Recorder Incl Physician Completed Analysis,Rev,Repor 04/18/2018 04434 Inject Tendon Sheath Or Ligament Aponeurosis Eg Plantar Completed Fascia 04/03/2018 82820 EKG Tracing & Interpretation Completed 04/01/2018 27879 Implantable Cardio System Loop Recorder Sys Remota Data Completed Acquistio 04/01/2018 77231 Interrogation Dev Loop Recorder Incl Physician Completed Analysis,Rev,Repor 03/01/2018 50935 Implantable Cardio System Loop Recorder Sys Remota Data Completed Acquistio 03/01/2018 93361 Interrogation Dev Loop Recorder Incl Physician Completed Analysis,Rev,Repor 02/25/2018 96079 Moderate Sedation Services; Same Phys Intl 15 Mins; PT >=5 Completed Years 02/25/2018 16016 EKG, Interpretation Only Completed 02/25/2018 47616 EKG, Interpretation Only Completed 02/25/2018 52326 Cardioversion Completed 01/28/2018 01559 Implant Cardiac Loop Recorder Completed 11/28/2017 98510 Holter Monitor Review (24 hr) review & interp only Completed 10/15/2017 17071 EKG Tracing & Interpretation Completed 07/27/2017 36405 EKG Tracing & Interpretation Completed 07/25/2017 44185 Holter Monitor Review (24 hr) review & interp only Completed 07/17/2017 56058 EKG Tracing & Interpretation Completed 07/17/2017 45732 EKG Tracing & Interpretation Completed 03/09/2017 00694 ECHO Transthoracic, Real-Time 2D With Doppler And Color Completed Flow 01/23/2017 94712 EKG Tracing & Interpretation Completed 06/29/2016 19143 Holter Monitor Review (24 hr) review & interp only Completed 06/27/2016 02052 ECHO Transthoracic, Real-Time 2D With Doppler And Color Completed Flow 06/27/2016 03716 ECG Monitor/Recording W/Visual Superimposition Scanning Completed 06/09/2016 90757 EKG Tracing & Interpretation Completed 05/15/2016 80745 Inject/Drain Joint/Bursa Major W/O US Completed 11/11/2015 10243 THR Total Hip Replacement Completed 11/11/2015 85518 THR Total Hip Replacement Completed 10/12/2015 26548 EKG Tracing & Interpretation Completed 10/08/2015 46881 Inject/Drain Joint/Bursa Major W/O US Completed 06/28/2015 50083 EKG Tracing & Interpretation Completed 01/28/2015 16076 Polysomnography Sleep Staging 4+ Parameters W/Cpap Completed 12/07/2014 11849 Holter Monitor Review (24 hr)dr review & interp only Completed 12/01/2014 44981 ECHO Transthorasic Realtime 2D W Doppler & Color Flow Hosp Completed 11/24/2014 60569 EKG Tracing & Interpretation Completed 04/29/2014 70108 EKG Tracing & Interpretation Completed 09/26/2013 13958 ECHO Transthoracic, Real-Time 2D With Doppler And Color Completed Flow 09/26/2013 67016 EKG Tracing & Interpretation Completed 01/10/2013 77588 ECHO Transthoracic, Real-Time 2D With Doppler And Color Completed Flow 01/10/2013 00399 EKG Tracing & Interpretation Completed 11/22/2012 82201 RT & lt Cath W/Injx HRT Art&L Ventr Img S&I Completed 11/22/2012 30067 Left Heart Cath. Incl S/I Coronaries, Angio S/I V Gram If Completed Done 11/20/2012 60178 ECHO Transthoracic, Real-Time 2D With Doppler And Color Completed Flow 11/20/2012 45520 EKG Tracing & Interpretation Completed Encounters Type Date Location Provider Dx Diagnosis Office Visit 11/07/2018 [facility] Pratik Peck DO R51 Headache 3:36p [facility] FACC Z95.2 Presence of prosthetic heart valve I48.0 Paroxysmal atrial fibrillation R00.2 Palpitations Office Visit 10/15/2018 1:30p [facility] Efren Arita I48.0 Paroxysmal atrial Of [facility] Greyson Bowman fibrillation Z95.2 Presence of prosthetic heart valve I49.5 Sick sinus syndrome Office Visit 07/31/2018 1:30p [facility] Efren Arita I48.0 Paroxysmal atrial Of Pennie Bowman M.D. fibrillation R00.2 Palpitations Z95.2 Presence of prosthetic heart valve Office Visit 06/21/2018 11:00a [facility] Aditi S. I48.0 Paroxysmal atrial Of [facility] Ruben, N.P. fibrillation R00.2 Palpitations R94.31 Abnormal electrocardiogram [ECG] [EKG] Z95.4 Presence of other heart-valve replacement Office Visit 05/16/2018 11:30a Pulmonology And Colleen G47.33 Obstructive sleep Sleep Services Of MD Rogelio apnea (adult) Barber (pediatric) E66.01 Morbid (severe) obesity due to excess calories Office Visit 04/18/2018 10:45a Orthopedic Roula Clemons, M65.351 Trigger finger, Services Of TAN-Yfn jaimes C.M.A. finger Office Visit 04/03/2018 2:45p [facility] Efren Arita Z95.818 Presence of Of Pennie Bowman M.D. other cardiac implants and grafts I48.0 Paroxysmal atrial fibrillation Z95.4 Presence of other heart-valve replacement Office Visit 12/26/2017 10:45a [facility] Efren Arita I48.92 Unspecified Of Pennie Bowman M.D. atrial flutter Office Visit 10/15/2017 4:40p [facility] Qutaybeh S. 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 E66.01 Morbid (severe) obesity due to excess calories G47.33 Obstructive sleep apnea (adult) (pediatric) Office Visit 07/17/2017 11:00a [facility] Lucina Obrien G47.33 Obstructive sleep Of [facility] apnea (adult) (pediatric) E66.01 Morbid (severe) obesity due to excess calories I71.9 Aortic aneurysm of unspecified site, without rupture Z95.2 Presence of prosthetic heart valve I48.92 Unspecified atrial flutter M10.00 Idiopathic gout, unspecified site Office Visit 05/10/2017 11:45a Pulmonology And Colleen G47.33 Obstructive sleep Sleep Services Of MD Rogelio apnea (adult) [facility] (pediatric) E66.01 Morbid (severe) obesity due to excess calories Z68.41 Body mass index (BMI) 40.0-44.9, adult Office Visit 01/23/2017 [facility] Qutaybeh S. I35.0 Nonrheumatic 4:00p Cardiology Greyson Gonsalez aortic (valve) stenosis I71.9 Aortic aneurysm of unspecified site, without rupture R42 Dizziness and giddiness E66.01 Morbid (severe) obesity due to excess calories Z68.41 Body mass index (BMI) 40.0-44.9, adult G47.33 Obstructive sleep apnea (adult) (pediatric) Office Visit 07/12/2016 Pulmon[facility] And Antonette G47.33 Obstructive sleep 3:15p Sleep Services Of RBOI Sanchez RN, apnea (adult) [facility]- (pediatric) E66.01 Morbid (severe) obesity due to excess calories Office Visit 06/09/2016 [facility] Juan Jose Villarreal G47.33 Obstructive sleep 2:20p Cardiology Greyson Gonsalez [...] Sleep Services Of MD Rogelio apnea (adult) [facility] (pediatric) E66.01 Morbid (severe) obesity due to excess calories Office Visit 11/13/2015 1:59p [facility] Cinthya Phillips, Z96.641 Presence of Assoc,pc N.P. 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 G47.33 Obstructive sleep 9:40a Cardiology Greyson [...] M25.462 Effusion, left knee Office Visit 06/28/2015 Kali Ingram S. G47.33 Obstructive sleep 2:40p Cardiology Greyson Gonsalez apnea (adult) (pediatric) E66.01 Morbid (severe) obesity due to excess calories I35.0 Nonrheumatic aortic (valve) stenosis I10 Essential (primary) hypertension Z95.2 Presence of prosthetic heart valve Office Visit 05/10/2015 1:15p Pulmonology And Colleen G47.33 Obstructive sleep Sleep Services Of MD Rogelio apnea (adult) Barber (pediatric) E66.01 Morbid (severe) obesity due to excess calories Office Visit 02/26/2015 11:30a Pulmonology And Colleen 327.23 Obstructive Sleep Sleep Services Of MD Rogelio Apnea Adult & [facility] Pediatric 278.01 Obesity Morbid Office Visit 01/27/2015 11:30a Pulmonology And Colleen 327.23 Obstructive Sleep Sleep Services Of MD Rogelio Apnea Adult & [facility] 278.01 Obesity Morbid Office Visit 12/24/2014 10:30a [facility] MARGOT Ceron 424.1 Aortic Valve Disorder 401.1 Hypertension Benign 785.1 Palpitations 427.61 Premature Beats Supraventricular 327.23 Obstructive Sleep Apnea Adult & Pediatric Office Visit 11/24/2014 2:40p [facility] Juan Jose Villarreal 424.1 Aortic Valve Greyson Gonsalez Disorder 401.1 Hypertension Benign 278.00 Obesity Unspec 785.2 Murmur Cardiac Undiagnosed 786.05 Shortness Of Breath 785.1 Palpitations Office Visit 04/29/2014 2:40p [facility] Juan Jose Villarreal 424.1 Aortic Valve Greyson Gonsalez Disorder 401.1 Hypertension Benign 278.00 Obesity Unspec 785.2 Murmur Cardiac Undiagnosed Office Visit 09/26/2013 10:20a [facility] Juan Jose SBlanca 424.1 Aortic Valve Greyson Gonsalez Disorder 401.1 Hypertension Benign 278.00 Obesity Unspec 786.05 Shortness Of Breath 785.1 Palpitations V72.81 Examination Preoperative Cardiovascular Office Visit 07/17/2013 2:20p [facility] Piedad 785.1 Palpitations AT [facility] Jm Rosario 424.1 Aortic Valve Disorder 401.1 Hypertension Benign 278.00 Obesity Unspec Office Visit 04/02/2013 11:20a [facility] Piedad 424.1 Aortic Valve Jm Rosario Disorder V45.89 Postsurgical Status Other 401.1 Hypertension Benign 278.00 Obesity Unspec 715.96 Osteoarthrosis Unspec Genlzd Or Localized Lower Leg Office Visit 01/29/2013 [facility] Piedad V45.89 Postsurgical 11:20a Cardiology Jm Rosario Status Other 424.1 Aortic Valve Disorder 401.1 Hypertension Benign 278.00 Obesity Unspec 715.96 Osteoarthrosis Unspec Genlzd Or Localized Lower Leg Office Visit 01/10/2013 [facility] Piedad V45.89 Postsurgical 2:00p Cardiology Jm Rosario Status Other 424.1 Aortic Valve Disorder 401.1 Hypertension Benign 278.00 Obesity Unspec 780.57 Unspecified Sleep Apnea 715.96 Osteoarthrosis Unspec Genlzd Or Localized Lower Leg Office Visit 11/20/2012 10:20a [facility] Piedad 424.1 Aortic Valve Jm Rosario Disorder V72.81 Examination Preoperative Cardiovascular 401.9 Hypertension Unspec 278.00 Obesity Unspec 780.57 Unspecified Sleep Apnea Office Visit 10/24/2012 Orthopedic Cricket 715.96 Osteoarthrosis 8:00a Services Of Greyson Verma Unspec Genlzd Or C.M.A. Localized Lower Leg Plan of Treatment Future Appointment(s):11/22/2018 12:15 pm - Christo Nicholas M.D. at [facility]11/20/2018 2:45 pm - Efren Bowman M.D. at [facility]11/19/2018 1:00 pm - Ica Pacer Schedule at [facility]05/19/2019 11:30 am - Colleen Mercado MD at [facility] Of [facility]11/05/2018 - Efren Bowman M.D.I49.5 Sick sinus mpzvvdrnX09.0 Paroxysmal atrial jgaoclxogvksF96.2 Presence of prosthetic heart [id number] HeadacheNew Xrays:CT Brain W/Wo, Ordered: 11/05/18Follow up:3 weeksRecommendations:Stop DlpdapyJ98.0 Presence of cardiac pacemaker
--- OUTSIDE RECORDS SUMMARY | 2018-12-02 10:04 | XMS REPORT | Continuity of Care Document ---
:1950 External Reference #:[id number] Author Name Javier Paul M.D. Address [address] [place] [address] Care Team Providers Name Role Phone Dilshad [place] D.O Primary Care Physician Unavailable Payers Date Identification Numbers Payment Provider Subscriber Policy Number: [id number] Medicare - [facility] Jayesh Wesley PayID: [id number] [address] [place] [address] PayID: [id number] Bethany Plan Kori Wesley [address] [place] [address] Advance Directives Description No Information Available Problems Active Problems Provider Date Migraine Javier Paul M.D. Onset: 11/14/2018 Hypertensive disorder Javier Paul M.D. 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/2018 Family History Date Family Member(s) Observation Comments Father Unknown Mother Unknown First Sister Cataract Social History Type Date Description Comments Sex Unknown Marital Status Has been 1 time Occupation [employer] Work Status Full-Time Employment ETOH Use Has consumed alcohol in the past Tobacco Use Start: Unknown Patient has never smoked Recreational Drug Use Denies Drug Use Smoking Status Reviewed: 11/14/18 Patient has never smoked Allergies, Adverse Reactions, Alerts Active Allergies Reaction Severity Comments Date Penicillin Hives 11/14/2018 Torsemide 11/14/2018 Medications Active Medications SIG Qnty Indications Ordering Provider Date Fish Oil Javier Paul M.D. 11/14/2018 435mg Capsules Ramipril Unknown 10mg Capsules Tamsulosin HCL Chance Mccann M.D. 0.4mg Capsules Testosterone Cypionate Chance Mccann M.D. 200mg/ml Solution Nimo Keyes M.D. 150mg Capsules Diclofenac Sodium [place], Dilshad D.O 1% Gel Omeprazole Marina, Dilshad D.O 40mg Capsules Metoprolol Succinate ER [place], Dilshad D.O 50mg Tablets ER 24HR Immunizations Description No Information Available Vital Signs Description No Information Available Results Description No Information Available Procedures Description No Information Available Encounters Description No Information Available Plan of Treatment 11/14/2018 - Javier Paul M.D.R51 HeadacheComments:Smoking can increase the risk of developing or worsening any eye related disease, as well as affect your overall health. If you are a smoker, we strongly recommend that you quit.If you are not a smoker, we strongly recommend that you do not start. You have a headache that is not eye related. Please follow up with your primary care doctor.Follow up:2 Year Follow Up DFE You can expect to have your eyes dilated at your next visit. If Dr. Paul orders any additional testing, it may require extra time. We recommend that you bring sunglasses, as dilation drops often make you light sensitive until they wear off. We always recommend you bring someone to drive you home if you are uncomfortable driving with your eyes dilated. If you have any questions before your next visit, feel free to call our office at .Q15.8 Other specified congenital malformations of eyeH11.443 Conjunctival cysts, bilateral
[2018-12-02 12:38] LABS: BUN/Creatinine Ratio 17.4 (8-20); Calcium 8.8 mg/dL (8.6-10.3); EGFR African American 99.3 (>60); EGFR Non-African American 82.1 (>60); Magnesium 2.1 mg/dL (1.9-2.7); Potassium 3.6 mmol/L (3.5-5.0)
[2018-12-02] MEDS: Sotalol TAB* 80 MG PO SCH ×2 (12:38→21:03)
[2018-12-02] MEDS: CMCS:Dabigatran CAP(NF) 150 MG CAP PO SCH (21:03)
[2018-12-03] MEDS: CMCS:Dabigatran CAP(NF) 150 MG CAP PO SCH ×2 (09:28→20:34)
[2018-12-03] MEDS: Pantoprazole TAB * 40 MG TAB PO SCH (09:28)
[2018-12-03] MEDS: Metoprolol Succinate XL TAB* 100 MG PO SCH (09:28)
[2018-12-03] MEDS: Ramipril CAP* 10 MG PO SCH (09:28)
[2018-12-03] MEDS: Tamsulosin CAP* 0.4 MG PO SCH (09:29)
[2018-12-03] MEDS: Sotalol TAB* 80 MG PO SCH ×2 (09:29→20:35)
[2018-12-03 12:40] LABS: BUN/Creatinine Ratio 14.8 (8-20); Calcium 9.6 mg/dL (8.6-10.3); EGFR African American 82.5 (>60); EGFR Non-African American 68.2 (>60); Magnesium 2.3 mg/dL (1.9-2.7); Potassium 4.3 mmol/L (3.5-5.0)
[2018-12-03] MEDS ORDERED: Midazolam* 1 MG/ML 5 ML VIAL (5 MG) ONE ×2 (14:36→14:37)
[2018-12-03] MEDS ORDERED: Naloxone* 0.4 MG/ML 1 ML VIAL ONE (14:36)
[2018-12-03] MEDS ORDERED: Flumazenil* 0.1 MG/ML 5 ML MDV ONE (14:36)
[2018-12-03] MEDS ORDERED: fentaNYL* 50 MCG/ML 2 ML VIAL (100 MCG VIAL) ONE (14:36)
--- NOTE | 2018-12-03 17:35 | CARD ---
CARDIOVERSION REPORT: DATE OF PROCEDURE: 12/03/18 - ROOM #331 PROCEDURE: Cardioversion. INDICATION: Atrial flutter. The patient is a 68-year-old gentleman with a history of aortic valve replacement, who has been having recurrent episodes of atrial flutter. The patient is admitted to the hospital now for sotalol initiation. The patient has had 3 doses of sotalol. Cardioversion was recommended. DESCRIPTION OF PROCEDURE: The patient was in a fasting state. Informed consent had been obtained prior to the procedure. All labs were reviewed. The patient was given 5 mg of Versed and 50 mcg of fentanyl for conscious sedation. The patient was cardioverted with 120 joules of synchronized biphasic energy. The patient converted to normal sinus rhythm. The patient tolerated the procedure well with no complications. [id number]/[facility] #: [id number] MARY
--- NOTE | 2018-12-04 09:07 | PN ---
<Guillermina Ochoa - Last Filed: 12/04/18 09:01> Subjective Date of Service: 12/04/18 - AFL s/p Sotalol med load and CV Interval History: No events last night, patient doing well sitting on edge of bed. Offers no complaints. Denies c/o chest pain, sob, palpitations or dizziness. He is anxious to go home but is aware that we are waiting on [employer] to make device changes. Medications Active Medications: Dabigatran (Pradaxa Cap(Nf)) 150 mg PO BID [facility] Last Admin: 12/03/18 20:34 Dose: 150 mg Metoprolol Succinate (Toprol Xl Tab*) 100 mg PO DAILY [facility] Last Admin: 12/03/18 09:28 Dose: 100 mg Pantoprazole Sodium (Protonix Tab*) 40 mg PO DAILY [facility] Last Admin: 12/03/18 09:28 Dose: 40 mg Ramipril (Altace Cap*) 10 mg PO DAILY [facility] Last Admin: 12/03/18 09:28 Dose: 10 mg Sotalol HCl (Betapace Tab*) 80 mg PO BID [facility] Last Admin: 12/03/18 20:35 Dose: 80 mg Tamsulosin HCl (Flomax Cap*) 0.4 mg PO DAILY [facility] Last Admin: 12/03/18 09:29 Dose: 0.4 mg Objective Vital Signs: Temp Pulse Resp BP Pulse Ox 97.4 F 62 17 125/80 95 12/04/18 07:13 12/04/18 07:13 12/04/18 07:13 12/04/18 07:13 12/04/18 07:13 Oxygen Devices in Use Now: None Appearance: well nourished, A+O x3, cooperative with exam. Ears/Nose/Mouth/Throat: NL Teeth, Lips, Gums, Mucous Membranes Moist Neck: NL Appearance and Movements; NL JVP Respiratory: Symmetrical Chest Expansion and Respiratory Effort, Clear to Auscultation Cardiovascular: NL Sounds; No Murmurs; No JVD, No Edema Abdominal: - - Distended, firm, normoactive BSx4 Extremities: No Edema Skin: No Rash or Ulcers Neurological: Alert and Oriented x 3 Lines/Tubes/Other Access: Clean, Dry and Intact Peripheral IV Laboratory Results: 12/03/18 12:11 Laboratory Results - last 24 hr 12/03/18 12:11 Sodium 137 Potassium 4.3 Chloride 103 Carbon Dioxide 28 Anion Gap 6 BUN 16 Creatinine 1.08 Est GFR ( Amer) 82.5 Est GFR (Non-Af Amer) 68.2 BUN/Creatinine Ratio 14.8 Glucose 87 Calcium 9.6 Magnesium 2.3 EKG Data: EKG 12/04/2018; /[employer] rate 64, underlying rhythm appears to be sinus with definative p waves. QTc 471. Telemetry reviewed; Paced rate 60's, over the night his intrinsic rhythm did come through and was sinus, rare PVCs no VT Assessment/Plan #1 h/o Paroxysmal AFL; s/p Sotalol medication load first dose was 12/02/2018 at 1100. He had successful CV yesterday and has maintained NSR since. QTc is stable on today's ECG. Will update BMP with mag level. [employer] notified to adjust PPM settings to MVP and Ayesha settings. Patient has an appointment on at 11:15am with Dr. Bowman. He is clinically doing well will await labs and device settings to be changed. On Pradaxa 150mg PO BID #2 h/o SSS with DC PPM; [employer] to come in today to make above mentioned device setting changes. 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 Is tolerating Paradax therapy #4 Disposition; pending course. Tentative discharge later today. Attending: Joanna Lao <Joanna Lao - Last Filed: 12/04/18 12:56> Medications Active Medications: Dabigatran (Pradaxa Cap(Nf)) 150 mg PO BID [facility] Last Admin: 12/04/18 09:15 Dose: 150 mg Metoprolol Succinate (Toprol Xl Tab*) 100 mg PO DAILY [facility] Last Admin: 12/04/18 09:15 Dose: 100 mg Pantoprazole Sodium (Protonix Tab*) 40 mg PO DAILY [facility] Last Admin: 12/04/18 09:16 Dose: 40 mg Ramipril (Altace Cap*) 10 mg PO DAILY [facility] Last Admin: 12/04/18 09:16 Dose: 10 mg Sotalol HCl (Betapace Tab*) 80 mg PO BID [facility] Last Admin: 12/04/18 09:16 Dose: 80 mg Tamsulosin HCl (Flomax Cap*) 0.4 mg PO DAILY [facility] Last Admin: 12/04/18 09:15 Dose: 0.4 mg Objective Vital Signs: Temp Pulse Resp BP Pulse Ox 97.4 F 62 16 125/80 95 12/04/18 07:13 12/04/18 07:13 12/04/18 08:00 12/04/18 07:13 12/04/18 07:13 Laboratory Results: 12/04/18 11:37 Assessment/Plan K+ 4.2, Mg++ 2.2 The patient was seen and examined, feels better in NSR on Sotalol. I agree with the above recommendations and plan.
[2018-12-04] MEDS: CMCS:Dabigatran CAP(NF) 150 MG CAP PO SCH (09:15)
[2018-12-04] MEDS: Metoprolol Succinate XL TAB* 100 MG PO SCH (09:15)
[2018-12-04] MEDS: Tamsulosin CAP* 0.4 MG PO SCH (09:15)
[2018-12-04] MEDS: Sotalol TAB* 80 MG PO SCH (09:16)
[2018-12-04] MEDS: Ramipril CAP* 10 MG PO SCH (09:16)
[2018-12-04] MEDS: Pantoprazole TAB * 40 MG TAB PO SCH (09:16)
[2018-12-04 09:29] LABS: BUN/Creatinine Ratio 15.5 (8-20); Calcium 9.3 mg/dL (8.6-10.3); EGFR African American 80.8 (>60); EGFR Non-African American 66.8 (>60); Magnesium 2.2 mg/dL (1.9-2.7); Potassium 4.2 mmol/L (3.5-5.0)
[2018-12-04 12:11] LABS: BUN/Creatinine Ratio 17.9 (8-20); Calcium 9.5 mg/dL (8.6-10.3); EGFR African American 95.7 (>60); EGFR Non-African American 79.1 (>60); Magnesium 2.2 mg/dL (1.9-2.7); Potassium 4.2 mmol/L (3.5-5.0)
--- NOTE | 2018-12-04 13:17 | DS ---
DISCHARGE SUMMARY: DATE OF ADMISSION: 12/02/18 TENTATIVE DATE OF DISCHARGE PENDING NO COMPLICATIONS: 12/04/18 ATTENDING PHYSICIAN: Dr. Joanna Lao, Cardiology* (dictated by Guillermina Ochoa NP). PRIMARY [employer]: Dr. Efren Bowman. PRIMARY PHYSICIAN: Dr. Gurpreet Gray. ADMITTING DIAGNOSES: 1. Paroxysmal atrial flutter, here for sotalol medication load and elective cardioversion. 2. Sick sinus syndrome with DC PPM in situ. 3. History of factor XI deficiency, historically managed by Dr. Lorna Werner , tolerating Pradaxa therapy. 4. History of bioprosthetic aortic valve, peak gradient 14 on echo from . PROCEDURES PERFORMED: The patient had successful cardioversion performed on by Dr. Efren Bowman with administration of 120 joules of synchronized biphasic energy. The patient converted to normal sinus rhythm. No complications thus far. COURSE OF HOSPITAL STAY: This is a pleasant 68-year-old male patient who follows Dr. Efren Bowman of our practice due to a known history of paroxysmal A -flutter, sick sinus syndrome, bioprosthetic aortic valve, and factor XI deficiency. He was recently seen in our practice on 11/20/18 in followup. It appears that the patient was in A-flutter, so sotalol medication load with admission to the hospital was recommended. The patient presented to [facility] on . Sotalol 80 mg p.o. b.i.d. was initiated; first dose was at 11 a.m. on . The patient persisted in A- flutter despite 3 doses of sotalol therapy , thus underwent successful cardioversion on 12/03/18. He has been on monitored on telemetry since then and has remained in normal sinus rhythm. His QT has remained stable. This morning, QTc is 471. The patient is paced. Thus , QRS is 134. Electrolytes have remained stable. He offers no complaints. This morning's blood work is pending. [employer] is to change dual pacemaker device settings to MVP and GREGG settings; that is to occur later today. We will await this morning's basic metabolic panel and magnesium level and device setting changes. Tentative discharge is later today. The patient has a followup appointment on 01/01/19 at 11:[address] Efren Bowman. He does have a history of factor XI deficiency; however, he is tolerating Pradaxa therapy at this time. DISCHARGE MEDICATIONS: Include: 1. Pradaxa 150 mg p.o. b.i.d. 2. Metoprolol 100 mg p.o. daily. 3. Protonix 40 mg a day. 4. Ramipril 10 mg a day. 5. Sotalol 80 mg p.o. b.i.d. 6. Flomax 0.4 mg daily. DISCHARGE DIET: Low cholesterol, low fat. DISCHARGE ACTIVITY RESTRICTIONS: None. FOLLOWUP APPOINTMENT: 1. 01/01/[address] Efren Bowman at 11:[address] Gray in 10 to 14 days. We will reevaluate after labs are resulted and device settings changed. Dr. Joanna Lao agrees with this above assessment and plan. GUILLERMINA OCHOA NP [id number]/[facility] #: [id number] MARY
[2018-12-04 15:12] VITALS: BP 128/76
== END 2018-12-04 17:28 | disposition home or self-care (01) | DRG 309 ==
LOC: MEDTELE 12-02 10:00
PROVIDERS: ADMIT Specialist; ATTEND Specialist
PROC: 5A2204Z Restoration of Cardiac Rhythm, Single (ICD-10-PCS; principal; 2018-12-03 14:15)
DX: I48.92 Unspecified atrial flutter (principal); Z68.41 Body mass index [BMI] 40.0-44.9, adult; D68.1 Hereditary factor XI deficiency; I48.0 Paroxysmal atrial fibrillation; E66.01 Morbid (severe) obesity due to excess calories; I49.3 Ventricular premature depolarization; G47.33 Obstructive sleep apnea (adult) (pediatric); I10 Essential (primary) hypertension; M19.90 Unspecified osteoarthritis, unspecified site; Z96.641 Presence of right artificial hip joint; I77.819 Aortic ectasia, unspecified site; I08.3 Combined rheumatic disorders of mitral, aortic and tricuspid valves; Z82.0 Family history of epilepsy and other diseases of the nervous system; Z95.2 Presence of prosthetic heart valve; Z95.0 Presence of cardiac pacemaker; Z82.49 Family history of ischemic heart disease and other diseases of the circulatory system; Z80.42 Family history of malignant neoplasm of prostate; Z83.3 Family history of diabetes mellitus; Z82.61 Family history of arthritis; Z79.01 Long term (current) use of anticoagulants
CPT/HCPCS: 36415; 80048; 83735; 92960; 93005; 99156; A9270-GY; J2250; J2310; J3010

== ENCOUNTER 2018-12-15 13:20 | Emergency (ER) | payer MEDICARE, BC ==
[2018-12-15] MEDS ORDERED: NS 0.9% 1000 ML** 1,000 ML IV ONE (14:28)
[2018-12-15] MEDS ORDERED: Ondansetron INJ* 2 MG/ML VIAL IV ONE (14:28)
--- NOTE | 2018-12-15 15:17 | ED ---
Abdominal Pain/Male - HPI Summary HPI Summary: The patient is a 68 y/o M presenting to [facility] with a chief complaint of severe epigastric abd pain and diarrhea starting four days ago. The loose diarrhea is a yellow-mustard color, and he's had many episodes since onset. The pain is currently rated 2/10 in severity. The pain is aggravated by eating and alleviated by nothing. He additionally has nausea, decreased appetite, and one episode of dizziness at beginning of symptoms occurring. He denies SOB and CP. He reports that he recently had a pacer placed with a cardioversion about two weeks ago. When he was discharged home, he felt good, but then started to have increased BP, HR, and then these symptoms started. Hx of hiatal hernia (not surgically fixed), HTN, and GERD. FHx of cholecystitis. He is currently on blood thinners. - History of Current Complaint Chief Complaint: EDNauseaVomitDiarrh Stated Complaint: GI ISSUES PER PT Time Seen by Provider: 12/15/18 15:03 Hx Obtained From: Patient Onset/Duration: Sudden Onset, Lasting Days - four, Still Present Timing: Lasting Days Severity Initially: Moderate Severity Currently: Moderate Pain Intensity: 2 Pain Scale Used: 0-10 Numeric Location: Epigastric Radiates: No Character: Sharp Aggravating Factor(s): Food Alleviating Factor(s): Nothing Associated Signs And Symptoms: Positive: Decreased Appetite, Nausea, Diarrhea, Other - POSITIVE: one episode of dizziness;NEGATIVE: SOB. Negative: Chest Pain , Vomiting - Allergies/Home Medications Allergies/Adverse Reactions: Allergies Allergy/AdvReac Type Severity Reaction Status Date / Time adhesive Allergy Rash Verified 12/15/18 13:28 Penicillins Allergy Hives Verified 12/15/18 13:28 MESH STITICHING Allergy BODY Uncoded 12/15/18 13:28 STARTED REJECTING AND "SPITTING OUT" OF SKIN STERI STRIPS Allergy Blisters Uncoded 12/15/18 13:28 STITCHING Allergy CAUSE Uncoded 12/15/18 13:28 DISCHARGE PUS PMH/Surg Hx/FS Hx/Imm Hx Endocrine/Hematology History: Denies: Hx Diabetes Cardiovascular History: Reports: Hx Auto Implanted Cardiovert Defib, Hx Hypertension, Hx Pacemaker/ICD, Hx Valvular Heart Disease, Other Cardiovascular Problems/Disorders - Aortic Valve Replacement 12/03/12 Denies: Hx Angina, Hx Coronary Artery Disease, Hx Hypercholesterolemia, Hx Myocardial Infarction, Hx Peripheral Vascular Disease Respiratory History: Reports: Hx Sleep Apnea, Other Respiratory Problems/ Disorders - SLEEP APNEA Denies: Hx Asthma, Hx Chronic Obstructive Pulmonary Disease (COPD) GI History: Reports: Hx Gastroesophageal Reflux Disease - ON DAILY MEDS, Hx Hiatal Hernia, Hx Ulcer History: Reports: Hx Kidney Stones Denies: Hx Renal Disease Musculoskeletal History: Reports: Hx Arthritis - Osteoarthritis, Hx Back Problems, Hx Bursitis - Knees, Hx Tendonitis - HX OF, ARMS Sensory History: Reports: Hx Contacts or Glasses - Glasses Denies: Hx Hearing Aid Opthamlomology History: Reports: Hx Contacts or Glasses - Glasses Neurological History: Denies: Hx Headaches, Hx Seizures, Hx Transient Ischemic Attacks (TIA) Psychiatric History: Reports: Hx Depression Denies: Hx Panic Disorder - Surgical History Surgery Procedure, Year, and Place: Left Total hip replacement ( [facility]); left and right carpal tunnel release; left knee arthroscopy; left shoulder surgery; right knee surgery x2; tonsillectomy; Aortic Valve Replacement ([facility])2012 ([facility])- STERNAL WIRE FOR CLOSURE; Right Knee Total Replacement 2013 ( [place]). 2013 - CARDIAC CATH - NO STENTS. pacemaker Hx Anesthesia Reactions: No Infectious Disease History: No Infectious Disease History: Denies: Hx Clostridium Difficile, Hx Hepatitis, Hx Human Immunodeficiency Virus (HIV), Hx Shingles, Hx Tuberculosis, Traveled Outside the [place] in Last 30 Days - Family History Known Family History: Positive: Cardiac Disease, Diabetes, Other Family History: prostate CA - Social History Alcohol Use: None Hx Substance Use: No Substance Use Type: Reports: None Hx Tobacco Use: No Smoking Status (MU): Never Smoked Tobacco Do You Chew or Dip Tobacco: No Have You Chewed or Dipped Tobacco in the LAST YEAR: No Have You Smoked in the Last Year: No Review of Systems Negative: Chest Pain Negative: Shortness Of Breath Positive: Abdominal Pain - sharp epigastric, Diarrhea, Nausea, Other - decreased appetite. Negative: Vomiting Neurological: Other - one episode of dizziness All Other Systems Reviewed And Are Negative: Yes Physical Exam - Summary Physical Exam Summary: GENERAL: Patient is a well-developed and nourished male who is lying comfortable in the stretcher. Patient is not in any acute respiratory distress. HEAD AND FACE: Normocephalic EYES: PERRLA, EOMI x 2. EARS: Hearing grossly intact. MOUTH: Oropharynx within normal limits. NECK: Supple, trachea is midline, no adenopathy, no JVD, no carotid bruit. CHEST: Symmetric, no tenderness at palpation LUNGS: Clear to auscultation bilaterally. No wheezing or crackles. CVS: Regular rate and rhythm, S1 and S2 present, no murmurs or gallops appreciated. ABDOMEN: Soft, tenderness to palpation in epigastric area. No rebound. Bowel sounds are normal. No abnormal abdominal pulsations. EXTREMITIES: Full ROM in all major joints, no edema, no cyanosis or clubbing. NEURO: Alert and oriented x 3. No acute neurological deficits. Speech is normal and follows commands. SKIN: Dry and warm Triage Information Reviewed: Yes Vital Signs On Initial Exam: Initial Vitals Temp Pulse Resp BP Pulse Ox 97.1 F 80 16 133/91 100 12/15/18 13:28 12/15/18 13:28 12/15/18 13:28 12/15/18 13:28 12/15/18 13:28 Vital Signs Reviewed: Yes Diagnostics - Vital Signs Vital Signs Temp Pulse Resp BP Pulse Ox 12/15/18 13:28 97.1 F 80 16 133/91 100 - Laboratory Result Diagrams: 12/15/18 15:55 12/15/18 15:55 Lab Statement: Any lab studies that have been ordered have been reviewed, and results considered in the medical decision making process. - Radiology Abd/Pel CT Radiology Interpretation Completed By: Radiologist - CT Abd/Pel CT CT Interpretation Completed By: Radiologist Summary of CT Findings: 1. No CT apparent acute inflammatory change of the gastrointestinal tract. 2. The appendix appears normal. 3. Extensive chronic, degenerative and iatrogenic findings described in the body the report that would unlikely account for the patient's current clinical presentation. ED physician has reviewed this report. - Ultrasound No standard instances Ultrasound Interpretation Completed By: Radiologist Summary of Ultrasound Findings: Gallbladder US: There are echogenic calculi in the gallbladder lumen consistent with cholelithiasis but no abnormal gallbladder wall thickening, no pericholecystic fluid and negative sonographic Andrews sign therefore not specific for acute cholecystitis. ED physician has reviewed this report. - EKG 1437 Cardiac Rate: NL - 66 BPM EKG Comparison: No Significant Change - Similar to previous EKG taken on 2018. Summary of EKG Findings: Atrial-paced rhythm. Re-Evaluation - Re-Evaluation First Eval Re-Evaluation Time: 18:50 Change: Improved Comment: I spoke with the patient concerning discharge. Abdominal Pain Male Course/Dx - Course Course Of Treatment: The patient is a 68 y/o M presenting to [facility] with a chief complaint of severe epigastric abd pain with loose mustard-colored diarrhea, nausea, and decreased appetite starting four days ago. Upon physical exam, the patient exhibits tenderness to palpation in the epigastric area without rebound. In the ED course, the patient was administered Ns, Zofran, and Iohexol (for CT). Blood work revelas RBC of 5.97, Plt count of 139, MPV of 7.1, carbon dioxide of 21, ASt of 51, 63 of ALT, CRP of 9.98. UA reveals no acute abnormalities. EKG reveals atrial-paced rhythm. Abd/Pel CT reveals no acute changes. Gallbladder US reveals echogenic calculi. He is diagnosed with biliary cholic. He will follow up with general surgeon. I discussed results with patient , and he reports feeling better. He is hemodynamically stable and safe for discharge. Strict return precautions given. - Diagnoses Provider Diagnoses: Biliary colic Discharge - Sign-Out/Discharge Documenting (check all that apply): Patient Departure - Patient will be discharged home. Patient Received Moderate/Deep Sedation with Procedure: No - Discharge Plan Condition: Stable Disposition: HOME Patient Education Materials: Biliary Colic (ED) Referrals: Gurpreet Gray DO [Primary Care Provider] - 3 Days Pratik Lew MD [Medical Doctor] - Additional Instructions: Follow up with your primary care physician in 1-3 days. Follow up with general surgery for further workup. RETURN TO THE EMERGENCY DEPARTMENT FOR CHANGING OR WORSENING SYMPTOMS. - Billing Disposition and Condition Condition: STABLE Disposition: Home - Attestation Statements Document Initiated by Rosalbaibkeron: Yes Documenting Scribe: Shannon Ray Provider For Whom Lois is Documenting (Include Credential): Dr. Kenya Cedeno MD Scribe Attestation: Shannon Diamond scribed for Dr. Kenya Cedeno MD on 12/16/18 at 1258. Scribe Documentation Reviewed: Yes Provider Attestation: The documentation as recorded by the Shannon brewster accurately reflects the service I personally performed and the decisions made by me, Dr. Kenya Cedeno MD Status of Lois Document: Viewed
[2018-12-15 16:18] LABS: ABS Basophils 0.1 10^3/ul (0-0.2); ABS Eosinophils 0.1 10^3/ul (0-0.6); ABS Lymphocytes 1.1 10^3/ul (1.0-4.8); ABS Monocytes 0.6 10^3/ul (0-0.8); ABS Neutrophils 4.1 10^3/ul (1.5-7.7); Eosinophil % 1.6 %; Hematocrit 52 % (42-52); Hemoglobin 17.7 g/dL (14.0-18.0); Lymphocyte % 18.8 %; Mean Corpuscular HGB Conc 34 g/dL (31-36); Mean Corpuscular Hemoglobin 30 pg (27-31); Mean Corpuscular Volume 87 fL (80-94); Mean Platelet Volume 7.1 fL (7.4-10.4); Nucleated Red Blood Cells % 0.2; Platelet Count 139 10^3/uL (150-450); Red Blood Count 5.97 10^6 /uL (4.18-5.48); Red Cell Distribution Width 15 % (10.5-15)
[2018-12-15 16:28] LABS: Albumin 4.5 g/dL (3.2-5.2); Albumin/Globulin Ratio 1.6 (1-3); BUN/Creatinine Ratio 22.8 (8-20); C Reactive Protein 9.98 mg/L (<8.01); Calcium 9.5 mg/dL (8.6-10.3); EGFR African American 89.2 (>60); EGFR Non-African American 73.7 (>60); Globulin 2.9 g/dL (2-4); Total Bilirubin 0.9 mg/dL (0.2-1.0); Total Protein 7.4 g/dL (6.4-8.9)
[2018-12-15] MEDS ORDERED: Iohexol 300* (CONTRAST) 10 ML SDV IV ONE (16:38)
[2018-12-15 17:01] LABS: Potassium 4.4 mmol/L (3.5-5.0)
[2018-12-15 18:49] LABS: Urine Appearance Clear; Urine Bilirubin Negative (Negative); Urine Blood Negative (Negative); Urine Color Yellow; Urine Glucose Negative (Negative); Urine Ketones Trace (Negative); Urine Nitrite Negative (Negative); Urine Protein Negative (Negative); Urine Specific Gravity 1.056 (1.010-1.030); Urine Urobilinogen Negative (Negative)
[2018-12-15 20:05] VITALS: BP 107/68
== END 2018-12-15 20:27 | disposition home or self-care (01) ==
LOC: ED 13:20
DX: K80.50 Calculus of bile duct without cholangitis or cholecystitis without obstruction (principal); R19.7 Diarrhea, unspecified; K21.9 Gastro-esophageal reflux disease without esophagitis; F32.9 Major depressive disorder, single episode, unspecified; Z88.0 Allergy status to penicillin
CPT/HCPCS: 36415; 74177; 76705; 80053; 81003; 83605; 83690; 85025; 86140; 93005; 96361; 96374; 96375; 99284; J2405; Q9967

== ENCOUNTER 2019-05-30 12:12 | Observation (INO) | payer MEDICARE, BC ==
--- OUTSIDE RECORDS SUMMARY | 2019-05-30 12:36 | XMS REPORT | Continuity of Care Document ---
:1950 External Reference #:[id number] Author Name Efren Bowman M.D. (transmitted by agent of provider Abbie Lynne) Address [facility] [place] [address] Care Team Providers Name Role Phone Gurpreet Gray D.OBlanca - Internal Care Team Information Tool Clerk [phone] Medicine Efren Bowman MD - Cardiovascular Care Team Information Tool Clerk [phone] Disease Problems Active Problems Provider Date Aortic valve disorder Piedad Rosario D.O. Onset: 11/20/2012 Heart murmur [facility] Schedule Onset: 11/20/2012 Postsurgical Status Other Piedad Rosario D.O. Onset: 01/10/2013 Difficulty breathing [facility] Schedule Onset: 01/10/2013 Benign essential hypertension Juan Jose Gonsalez M.D. Onset: 09/26/2013 Dyspnea Juan Jose Gonsalez M.D. Onset: 09/26/2013 Preoperative cardiovascular examination Juan Jose Gonsalez M.D. Onset: Obstructive sleep apnea syndrome Colleen Mercado MD Onset: 01/27/2015 Morbid obesity Colleen Mercado MD Onset: 01/27/2015 Localized, primary osteoarthritis Madeline Fernandes M.D. Onset: 10/08/2015 Localized, primary osteoarthritis of Madeline Fernandes M.D. Onset: 10/08/2015 the pelvic region and thigh Prosthetic arthroplasty of the hip Madeline Fernandes M.D. Onset: 02/04/2016 Social History Type Date Description Comments Sex Unknown Tobacco Use Start: Unknown Never Smoked Cigarettes Smoking Status Reviewed: 05/21/19 Never Smoked Cigarettes ETOH Use Denies alcohol use -Former alcoholic, quit drinking in 1981 Tobacco Use Start: Unknown Patient has never smoked Recreational Drug Use Denies Drug Use Exercise Type/Frequency Exercises regularly Exercise Type/Frequency Merrill Allergies, Adverse Reactions, Alerts Active Allergies Reaction Severity Comments Date Penicillins 11/20/2012 Surgical Mesh reaction to mesh 10/12/2015 Adhesive 12/26/2017 Torsemide prevent urination 06/21/2018 Medications Active Medications SIG Qnty Indications Ordering Provider Date Sotalol HCL twice a day 180tabs Efren Bowman, 12/03/2018 80mg Tablets M.D. Pradaxa twice a day 180caps Efren Bowman, 11/19/2018 150mg Capsules M.D. Vitamin B Complex 1 by mouth Unknown 01/26/2015 every day Tablets Vitamin D 1 by mouth Unknown 01/26/2015 2000Unit every day Capsules Clindamycin HCL 2 tabs 30-60 2caps Piedad 05/28/2013 300mg min prior to Jm Rosario Capsules dental work Multivitamins 1 po qd 90tabs Other Ordering 11/20/2012 Tablets Provider Testosterone Cypionate 1.5 ml every 3 10ml Other Ordering 11/20/2012 weeks. Provider 100mg/ml Oil Bipap hs Unknown Omeprazole 1 cap po daily Gurpreet Gray 40mg Capsules Charlette., D.OBlanca MORALES Tamsulosin HCL 1 tablet po Chance Campbell, 0.4mg daily MD Capsules Ramipril 1 by mouth Unknown 10mg Capsules every day Metoprolol Succinate 2 tablet po Marina Gurpreet ER daily J., D.OBlanca 50mg Tablets ER 24HR Fish Oil 1 tab by mouth Unknown 1000mg Capsules twice daily Medications Administered in Office Medication SIG Qnty Indications Ordering Provider Date Depomedrol 40MG Madeline Fernandes M.D. 03/14/2019 Injection Depomedrol 40MG ROSALINA Tran 04/18/2018 Injection Depomedrol 40MG Madeline Fernandes M.D. 05/15/2016 Injection Depomedrol 40MG Madeline Fernandes M.D. 10/08/2015 Injection Immunizations Description No Information Available Vital Signs Date Vital Result Comment 05/21/2019 1:39pm Height 67 inches 5'7" Weight 265.00 lb with shoes Heart Rate 64 /min BP Systolic Sitting 140 mmHg lue reg cuff BP Diastolic Sitting 84 mmHg lue reg cuff BP Systolic Standing 130 mmHg lue reg cuff BP Diastolic Standing 74 mmHg lue reg cuff Respiratory Rate 14 /min BMI (Body Mass Index) 41.5 kg/m2 Ejection Fraction 60-65% echo. 11/07/18 05/19/2019 11:23am Height 67 inches 5'7" Weight 267.00 lb Heart Rate 72 /min BP Systolic 148 mmHg BP Diastolic 84 mmHg O2 % BldC Oximetry 98 % BMI (Body Mass Index) 41.8 kg/m2 Results Description No Information Available Procedures Date Code Description Status 05/21/2019 23407 EKG Tracing & Interpretation Completed 03/14/2019 46840 Inject/Drain Joint/Bursa Major W/O US Completed 02/24/2019 81644 Pace Maker Eval W/Iterative Adjment Dual Lead Completed 02/24/2019 06736 Pace Maker Eval W/Iterative Adjment Dual Lead Completed 01/01/2019 92615 EKG Tracing & Interpretation Completed 12/04/2018 38860 EKG, Interpretation Only Completed 12/03/2018 59356 EKG, Interpretation Only Completed 12/03/2018 63630 Cardioversion Completed 12/02/2018 52738 EKG, Interpretation Only Completed 11/20/2018 48535 Pace Maker Eval W/Iterative Adjment Dual Lead Completed 11/20/2018 61270 Pace Maker Eval W/Iterative Adjment Dual Lead Completed 11/14/2018 [id number] Diabetic Retinal Eye Exam Completed Medical Devices Description No Information Available Encounters Type Date Location Provider Dx Diagnosis Office Visit 05/21/2019 [facility] Efren Bowman, Z95.0 Presence of 1:45p Of Pennie Rubi cardiac pacemaker I49.5 Sick sinus syndrome I48.0 Paroxysmal atrial fibrillation Z95.4 Presence of other heart-valve replacement Office Visit 05/19/2019 11:30a [facility] Colleen G47.33 Obstructive sleep [facility] Rogelio apnea (adult) Pennie (pediatric) K21.9 Gastro-esophageal reflux disease without esophagitis Office Visit 03/14/2019 11:00a [facility] Madeline Fernandes, M25.562 Pain in left at [place] M.DBlanca knee M25.462 Effusion, left knee M17.12 Unilateral primary osteoarthritis, left knee Office Visit 01/01/2019 11:30a [facility] Efren Arita I48.0 Paroxysmal atrial Of [place]ie Bowman M.D. fibrillation Z95.0 Presence of cardiac pacemaker I49.5 Sick sinus syndrome Z95.4 Presence of other heart-valve replacement Office Visit 12/24/2018 1:00p Surgical Grey Alford K80.10 [facility]ie Beasley M.D. gallbladder w chronic cholecyst w/o obstruction K42.9 Umbilical hernia without obstruction or gangrene Office Visit 12/04/2018 2:11p [facility] Joanna Lao I48.92 Unspecified Of Pennie Rubi atrial flutter Z95.2 Presence of prosthetic heart valve Office Visit 11/20/2018 2:45p [facility] Efren Arita I48.0 Paroxysmal atrial Of [place]ie Bowman M.D. fibrillation I49.5 Sick sinus syndrome Z95.0 Presence of cardiac pacemaker Z95.2 Presence of prosthetic heart valve I48.92 Unspecified atrial flutter Assessments Date Code Description Provider 05/21/2019 Z95.0 Presence of cardiac pacemaker Efren Bowman M.D. 05/21/2019 I49.5 Sick sinus syndrome Efren Bowman M.D. 05/21/2019 I48.0 Paroxysmal atrial fibrillation Efren Bowman M.D. 05/21/2019 Z95.4 Presence of other heart-valve Efren Bowman M.D. replacement 05/19/2019 G47.33 Obstructive sleep apnea (adult) Colleen Mercado MD (pediatric) 05/19/2019 K21.9 Gastro-esophageal reflux disease Colleen Mercado MD without esophagitis 03/14/2019 M25.562 Pain in left knee Madeline Fernandes M.D. 03/14/2019 M25.462 Effusion, left knee Madeline Fernandes M.D. 03/14/2019 M17.12 Unilateral primary osteoarthritis, Madeline Fernandes M.D. left knee 02/24/2019 Z95.0 Presence of cardiac pacemaker Efren Bowman M.D. 02/24/2019 Z95.0 Presence of cardiac pacemaker Ica Pacer Schedule 02/24/2019 I49.5 Sick sinus syndrome Ica Pacer Schedule 01/01/2019 I48.0 Paroxysmal atrial fibrillation Efren Bowman M.D. 01/01/2019 Z95.0 Presence of cardiac pacemaker Efren Bowman M.D. 01/01/2019 I49.5 Sick sinus syndrome Efren Bowman M.D. 01/01/2019 Z95.4 Presence of other heart-valve Efren Bowman M.D. replacement 12/24/2018 K80.10 Calculus of gallbladder with chronic Grey Beasley M.D. cholecystitis without o 12/24/2018 K42.9 Umbilical hernia without obstruction Grey Beasley M.D. or gangrene 12/04/2018 R94.31 Abnormal electrocardiogram [ECG] [EKG] Robert Chao M.D., [facility] 12/04/2018 I48.92 Unspecified atrial flutter Joanna Lao M.D. 12/04/2018 Z95.2 Presence of prosthetic heart valve Joanna Lao M.D. 12/03/2018 R94.31 Abnormal electrocardiogram [ECG] [EKG] Robert Chao M.D., [facility] 12/03/2018 I48.92 Unspecified atrial flutter Efren Bowman M.D. 12/02/2018 R94.31 Abnormal electrocardiogram [ECG] [EKG] Robert Chao M.D., [facility] 11/20/2018 I48.0 Paroxysmal atrial fibrillation Efren Bowman M.D. 11/20/2018 I48.0 Paroxysmal atrial fibrillation Ica Pacer Schedule 11/20/2018 Z95.0 Presence of cardiac pacemaker Efren Bowman M.D. 11/20/2018 I49.5 Sick sinus syndrome Efren Bowman M.D. 11/20/2018 I49.5 Sick sinus syndrome Ica Pacer Schedule 11/20/2018 Z95.0 Presence of cardiac pacemaker Efren Bowman M.D. 11/20/2018 Z95.0 Presence of cardiac pacemaker Ica Pacer Schedule 11/20/2018 Z95.2 Presence of prosthetic heart valve Efren Bowman M.D. 11/20/2018 I48.92 Unspecified atrial flutter Efren Bowman M.D. Plan of Treatment Future Appointment(s):05/26/2019 9:30 am - Efren Bowman M.D. at [facility]05/20/2020 11:30 am - Colleen Mercado MD at [facility]07/04/2019 11:15 am - Efren Bowman M.D. at [facility]05/21/2019 - Efren Bowman M.D.Z95.0 Presence of cardiac pacemakerNew Orders:Cardioversion, Scheduled: 05/26/19Referral:Jayesh Lockwood MD, Cardiology/Phys/OsteoFollow up:in July as utwecylgdL57.5 Sick sinus ykeadpolF22.0 Paroxysmal atrial qfcprxvuusktO86.4 Presence of other heart- valve replacement Functional Status Description No Information Available Mental Status Description No Information Available Referrals Refer to Dr Reason for Referral Status Appt Date Jayesh Lockwood MD Created [address] [facility] [address] [place] [address] [phone]
--- OUTSIDE RECORDS SUMMARY | 2019-05-30 12:36 | XMS REPORT | Continuity of Care Document ---
:1950 External Reference #:[id number] Author Name Colleen Mercado MD (transmitted by agent of provider Luci Og) Address [address], [address] [place] [address] Care Team Providers Name Role Phone Gurpreet Gray D.O. - Internal Care Team Information Steward/Stewardess Banquet Medicine Efren Bowman MD - Cardiovascular Care Team Information Steward/Stewardess Banquet Disease Problems Active Problems Provider Date Aortic [...] and thigh Prosthetic arthroplasty of the hip aMdeline Fernandes M.D. Onset: 02/04/2016 Social History Type Date Description Comments Sex Unknown Tobacco Use Start: Unknown Never Smoked Cigarettes Smoking Status Reviewed: 05/19/19 Never Smoked Cigarettes ETOH Use Denies alcohol [...] cap po daily Gurpreet Gray 40mg Capsules J., D.O. Tamsulosin HCL 1 tablet po Chance Campbell, 0.4mg daily MD Capsules Ramipril 1 by mouth Unknown 10mg Capsules every day Metoprolol Succinate 2 tablet po Gurpreet Gray ER daily J., D.O. 50mg Tablets ER 24HR Fish Oil 1 [...] Available Vital Signs Date Vital Result Comment 05/19/2019 11:23am Height 67 inches 5'7" Weight 267.00 lb Heart Rate 72 /min BP Systolic 148 mmHg BP Diastolic 84 mmHg O2 % BldC Oximetry 98 % BMI (Body Mass Index) 41.8 kg/m2 03/14/2019 11:33am Height 67 inches 5'7" Weight 262.00 lb Heart Rate 75 /min BP Systolic 138 mmHg BP Diastolic 82 mmHg Body Temperature 98.2 F Pain Level 7 BMI (Body Mass Index) 41.0 kg/m2 Results Description No Information Available Procedures Date Code Description Status 03/14/2019 16010 Inject/Drain Joint/Bursa Major W/O US Completed 02/24/2019 88166 Pace Maker Eval W/Iterative Adjment Dual Lead Completed 02/24/2019 59028 Pace Maker Eval W/Iterative Adjment Dual Lead Completed 01/01/2019 56635 EKG Tracing & Interpretation Completed 12/04/2018 48453 EKG, Interpretation Only Completed 12/03/2018 03009 EKG, Interpretation Only Completed 12/03/2018 46852 Cardioversion Completed 12/02/2018 89516 EKG, Interpretation Only Completed 11/20/2018 94870 Pace Maker Eval W/Iterative Adjment Dual Lead Completed 11/20/2018 87276 Pace Maker Eval W/Iterative Adjment Dual Lead Completed 11/14/2018 [id number] Diabetic Retinal Eye Exam Completed Medical Devices Description No Information Available Encounters Type Date Location Provider Dx Diagnosis Office Visit 03/14/2019 [facility] Madeline Fernandes, M25.562 Pain in left knee 11:00a at [facility] Rubi M25.462 Effusion, left knee M17.12 Unilateral primary osteoarthritis, left knee Office Visit 01/01/2019 11:30a [facility] Efren Arita I48.0 Paroxysmal atrial Of Pennie Bowman M.D. fibrillation Z95.0 Presence of cardiac pacemaker I49.5 Sick sinus syndrome Z95.4 Presence of other heart-valve replacement Office Visit 12/24/2018 1:00p [facility] Grey Alford K80.10 [facility] Beasley M.D. gallbladder w chronic cholecyst w/o obstruction K42.9 Umbilical hernia without obstruction or gangrene Office Visit 12/04/2018 2:11p [facility] Joanna Lao, I48.92 Unspecified Of Pennie WeissDBlanca atrial flutter Z95.2 Presence of prosthetic heart valve Office Visit 11/20/2018 2:45p [facility] Efren Arita I48.0 Paroxysmal atrial Of Pennie Bowman M.D. fibrillation I49.5 Sick sinus syndrome Z95.0 Presence of cardiac pacemaker Z95.2 Presence of prosthetic heart valve I48.92 Unspecified atrial flutter Assessments Date Code Description Provider 05/19/2019 G47.33 Obstructive sleep apnea (adult) Colleen [...] electrocardiogram [ECG] [EKG] Robert Chao M.D., [facility] 12/04/2018 I48.92 Unspecified atrial flutter Joanna Lao M.D. 12/04/2018 Z95.2 Presence of prosthetic heart valve Joanna Lao M.D. 12/03/2018 R94.31 Abnormal electrocardiogram [ECG] [EKG] Robert Chao M.D., [facility] 12/03/2018 I48.92 Unspecified atrial flutter Efren Bowman M.D. 12/02/2018 R94.31 Abnormal electrocardiogram [ECG] [EKG] Robert Chao M.D., [facility] 11/20/2018 I48.0 Paroxysmal atrial fibrillation Efren Bowman [...] Efren Bowman M.D. Plan of Treatment Future Appointment(s):05/20/2020 11:30 am - Colleen Mercado MD at [facility]07/04/2019 11:15 am - Efren Bowman M.D. at [facility]05/19/2019 - Colleen Mercado MDG47.33 Obstructive sleep apnea ( adult) (pediatric)Follow up:1 yearK21.9 Gastro-esophageal reflux disease without esophagitis Functional Status Description No Information Available Mental Status Description No Information Available Referrals Description No Information Available
--- OUTSIDE RECORDS SUMMARY | 2019-05-30 12:36 | XMS REPORT | Continuity of Care Document ---
:1950 External Reference #:[id number] Author Name Alva Barber MD, [facility] (transmitted by agent of provider Danielle Gabriel) Address [address] [address] Care Team Providers Name Role Phone Gurpreet Gray D.O. - Internal Care Team Information Horse Groomer Medicine Efren Bowman MD - Cardiovascular Care Team Information Horse Groomer Disease Problems Active Problems Provider Date Aortic [...] BMI (Body Mass Index) 41.8 kg/m2 Results Test Date Facility Test Result H/L Range Note Basic Metabolic 05/26/2019 [facility] Sodium 139 mmol/L Normal 135-145 [address] [place] [address] [phone] Potassium 3.8 mmol/L Normal 3.5-5.0 Chloride 104 mmol/L Normal 101-111 Co2 Carbon Dioxide 29 mmol/L Normal 22-32 Anion Gap 6 mmol/L Normal 2-11 Glucose 102 mg/dL High 70-100 Blood Urea Nitrogen 15 mg/dL Normal 6-24 Creatinine 0.99 mg/dL Normal 0.67-1.17 BUN/Creatinine Ratio 15.2 Normal 8-20 Calcium 8.9 mg/dL Normal 8.6-10.3 Egfr Non- 75.4 >60 Egfr 91.2 >60 1 Laboratory test 05/26/2019 [facility] Magnesium 2.2 mg/dL Normal 1.9-2.7 finding [address] [place] [address] [phone] 1 Because ethnic data is not always [...] (or dialysis) Procedures Date Code Description Status 05/21/2019 92896 EKG Tracing & Interpretation Completed 03/14/2019 57757 Inject/Drain Joint/Bursa Major W/O US Completed 02/24/2019 59821 Pace Maker Eval W/Iterative Adjment Dual Lead Completed 02/24/2019 98277 Pace Maker Eval W/Iterative Adjment Dual Lead Completed 01/01/2019 60656 EKG Tracing & Interpretation Completed 12/04/2018 60472 EKG, Interpretation Only Completed 12/03/2018 46849 EKG, Interpretation Only Completed 12/03/2018 93900 Cardioversion Completed 12/02/2018 25552 EKG, Interpretation Only Completed 11/14/2018 [id number] Diabetic Retinal Eye Exam Completed Medical Devices Description No Information Available Encounters Type Date Location Provider Dx Diagnosis Office Visit 05/19/2019 [facility] Rogelio, G47.33 Obstructive sleep 11:30a [facility] adler (adult) Pennie (pediatric) K21.9 Gastro-esophageal reflux disease without esophagitis Office Visit 03/14/2019 11:00a [facility] Madeline Dom, M25.562 Pain in left at [facility].Lyla knee M25.462 Effusion, left knee M17.12 Unilateral primary osteoarthritis, left knee Office Visit 01/01/2019 11:30a [facility] Efren Arita I48.0 Paroxysmal atrial Of Pennie Bowman M.D. fibrillation Z95.0 Presence of cardiac pacemaker I49.5 Sick sinus syndrome Z95.4 Presence of other heart-valve replacement Office Visit 12/24/2018 1:00p Surgical Grey Reis80.10 [facility] Beasley M.D. gallbladder w chronic cholecyst w/o obstruction K42.9 Umbilical hernia without obstruction or gangrene Office Visit 12/04/2018 2:11p [facility] Joanna Lao I48.92 Unspecified Of Pennie Rubi atrial flutter Z95.2 Presence of prosthetic heart valve Assessments Date Code Description Provider 05/26/2019 Z95.0 Presence of cardiac pacemaker Efren Bowman M.D. 05/21/2019 Z95.0 Presence of cardiac pacemaker Efren Bowman M.D. 05/21/2019 I49.5 Sick sinus syndrome Efren Bowman M.D. 05/21/2019 I48.0 Paroxysmal atrial fibrillation Efren Bowman M.D. 05/21/2019 Z95.4 Presence of other heart-valve Efren Bowman M.D. replacement 05/21/2019 I48.92 Unspecified atrial flutter Efren Bowman M.D. 05/19/2019 G47.33 Obstructive sleep apnea (adult) Colleen [...] Abnormal electrocardiogram [ECG] [EKG] Robert Chao M.D., [facility] 12/04/2018 I48.92 Unspecified atrial flutter Joanna Lao M.D. 12/04/2018 Z95.2 Presence of prosthetic heart valve Joanna Lao M.D. 12/03/2018 R94.31 Abnormal electrocardiogram [ECG] [EKG] Robert Chao M.D., [facility] 12/03/2018 I48.92 Unspecified atrial flutter Efren Bowman M.D. 12/02/2018 R94.31 Abnormal electrocardiogram [ECG] [EKG] Robert Chao M.D., [facility] Plan of Treatment Future Appointment(s):05/20/2020 11:30 am - Colleen Mercado MD at [facility]07/04/2019 11:15 am - Efren Bowman M.D. at [facility]05/21/2019 - Efren Bowman M.D.Z95.0 Presence of cardiac pacemakerNew Orders:Cardioversion, Scheduled: 05/26/19Referral:Jayesh Lockwood MD, Cardiology/Phys/OsteoFollow up:in July as qzptssbhnJ53.5 Sick sinus pjqhwnakL86.0 Paroxysmal atrial efgzdpjntptvA67.4 Presence of other heart- valve dxjasdauereA72.92 Unspecified atrial flutter Functional Status Description No Information Available Mental Status Description No Information Available Referrals Refer to Dr Reason for Referral Status Appt Date Jayesh Lockwood MD Sent [address] [facility] [address] [place] [address] [phone]
[2019-05-30] MEDS ORDERED: Metoclopramide IV* 5 MG/ML 2 ML VIAL IV ONE (14:17)
[2019-05-30] MEDS ORDERED: diPHENhydraMINE IV* 50 MG/ML 1 ml VIAL (BENADRYL) IV ONE (14:17)
[2019-05-30] MEDS ORDERED: Labetalol IV* 5 MG/ML 20 ML VIAL IV PUSH ONE (14:17)
--- NOTE | 2019-05-30 14:28 | ED ---
Headache - HPI Summary HPI Summary: 68 year old male reports to [facility] with a throbbing headache that started 4 days ago. Patient reports the headache to be a 9/10 in severity when standing up or moving, and a 5/10 in severity when lying down. Patient had a cardioversion with Dr. Rodriguez on 05/26/19, due to atrial fibrillation. The procedure had no complications and he was discharged. On 05/27/19 his headache started, which felt like he had been "zapped". He also reports feeling sore in the chest and back area on that day, as well as increased blood pressure (185/105 on average) . He has been feeling sick since that day, with his headache getting gradually worse. He has no chest pain currently. Per his he has shortness of breath. Per , he had a subjective low grade fever. She denies that he has blurred or double vision. Patient has no abdominal pain. He has a hernia in his abdomen. He has gained weight since his cardioversion. 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 - Onset/Duration: Started days ago - 05/27/19, Still Present, Worse Since - Initially Headache Was: Severe Currently Pain Is: Current Pain Scale(0-10)= - 9/10 when standing/moving, 5/10 when lying down, Severe Timing: Constant Character: Throbbing Aggravating Factor: Position Change Allevating Factors: Rest Associated Signs And Symptoms: Other (Noted In Comments) - chest and back aches that resolved, unusually high blood pressure, hernia, swelling in legs, SOB - Allergies/Home Medications Allergies/Adverse Reactions: Allergies Allergy/AdvReac Type Severity Reaction Status Date / Time adhesive Allergy Rash Verified 12/15/18 13:28 Penicillins Allergy Hives Verified 12/15/18 13:28 torsemide Allergy Unknown Verified 05/26/19 07:23 Reaction Details MESH STITICHING Allergy BODY Uncoded 12/15/18 13:28 STARTED REJECTING AND "SPITTING OUT" OF SKIN STERI STRIPS Allergy Blisters Uncoded 12/15/18 13:28 STITCHING Allergy CAUSE Uncoded 12/15/18 13:28 DISCHARGE PUS Home Medications: Home Medications Furosemide TAB* [Lasix TAB*] 20 mg PO DAILY 05/30/19 [History Confirmed 05/30/19 ] PMH/Surg Hx/FS Hx/Imm Hx Endocrine/Hematology History: Denies: Hx Diabetes Cardiovascular History: Reports: Hx Auto Implanted Cardiovert Defib, Hx Hypertension, Hx Pacemaker/ICD, Hx Valvular Heart Disease, Other Cardiovascular Problems/Disorders - Aortic Valve Replacement 12/03/12 Denies: Hx Angina, Hx Coronary Artery Disease, Hx Hypercholesterolemia, Hx Myocardial Infarction, Hx Peripheral Vascular Disease Respiratory History: Reports: Hx Sleep Apnea, Other Respiratory Problems/ Disorders - SLEEP APNEA Denies: Hx Asthma, Hx Chronic Obstructive Pulmonary Disease (COPD) GI History: Reports: Hx Gastroesophageal Reflux Disease - ON DAILY MEDS, Hx Hiatal Hernia, Hx Ulcer History: Reports: Hx Kidney Stones Denies: Hx Renal Disease Musculoskeletal History: Reports: Hx Arthritis - Osteoarthritis, Hx Back Problems, Hx Bursitis - Knees, Hx Tendonitis - HX OF, ARMS Sensory History: Reports: Hx Contacts or Glasses Denies: Hx Hearing Aid Opthamlomology History: Reports: Hx Contacts or Glasses Neurological History: Denies: Hx Headaches, Hx Seizures, Hx Transient Ischemic Attacks (TIA) Psychiatric History: Reports: Hx Depression Denies: Hx Panic Disorder - Surgical History Surgery Procedure, Year, and Place: Left Total hip replacement ( [facility]); left and right carpal tunnel release; left knee arthroscopy; left shoulder surgery; right knee surgery x2; tonsillectomy; Aortic Valve Replacement (BOVINE)2012 ([facility])- STERNAL WIRE FOR CLOSURE; Right Knee Total Replacement 2013 ( [facility]). 2013 - CARDIAC CATH - NO STENTS. pacemaker Hx Anesthesia Reactions: No Infectious Disease History: No Infectious Disease History: Denies: Hx Clostridium Difficile, Hx Hepatitis, Hx Human Immunodeficiency Virus (HIV), Hx Shingles, Hx Tuberculosis, Traveled Outside the [place] in Last 30 Days - Family History Known Family History: Positive: Cardiac Disease, Diabetes, Other Family History: prostate CA - Social History Alcohol Use: None Hx Substance Use: No Substance Use Type: Reports: None Hx Tobacco Use: No Smoking Status (MU): Never Smoked Tobacco Have You Smoked in the Last Year: No Review of Systems Positive: Fever - Low grade subjective per , Other - weight gain since cardioversion Negative: Photophobia, Blurred Vision Positive: Chest Pain - Had mild aches several days ago, resolved now, Other - High blood pressure Positive: Shortness Of Breath Negative: Abdominal Pain Positive: Edema - lower extremities, Other - Back ache that resolved Positive: Headache All Other Systems Reviewed And Are Negative: Yes Physical Exam - Summary Physical Exam Summary: VITAL SIGNS: Reviewed. GENERAL: Patient is an obese male who is lying comfortable in the stretcher. Patient is in distress due to headache. Patient is not in any acute respiratory distress. HEAD AND FACE: No signs of trauma. No ecchymosis, hematomas or skull depressions. No sinus tenderness. EYES: PERRLA, EOMI x 2, No injected conjunctiva, no nystagmus. No photophobia. EARS: Hearing grossly intact. Ear canals and tympanic membranes are within normal limits. MOUTH: Oropharynx within normal limits. NECK: Supple, trachea is midline, no adenopathy, no JVD, no carotid bruit, no c- spine tenderness, neck with full ROM. No meningeal signs, no Kernig's or brudzinskis signs. CHEST: Symmetric, no tenderness at palpation. LUNGS: Clear to auscultation bilaterally. No wheezing or crackles. CVS: Regular rate and rhythm, S1 and S2 present, no murmurs or gallops appreciated. Pacemaker left side of heart. ABDOMEN: Soft, non-tender. No signs of distention. No rebound, no guarding, and no masses palpated. Bowel sounds are normal. Non-reducible hernia, 2+. EXTREMITIES: FROM in all major joints, no edema, no cyanosis or clubbing. NEURO: Alert and oriented x 3. No acute neurological deficits. Speech is normal and follows commands SKIN: Dry and warm. Chest has tick on skin. GCS: 15 Triage Information Reviewed: Yes Vital Signs On Initial Exam: Initial Vitals Temp Pulse Resp BP Pulse Ox 98.6 F 60 20 166/103 97 05/30/19 12:20 05/30/19 12:20 05/30/19 12:20 05/30/19 12:20 05/30/19 12:20 Vital Signs Reviewed: Yes - Ceci Coma Scale Best Eye Response: 4 - Spontaneous Best Motor Response: 6 - Obeys Commands Best Verbal Response: 5 - Oriented Coma Scale Total: 15 Procedures - Sedation Patient Received Moderate/Deep Sedation with Procedure: No Diagnostics - Vital Signs Vital Signs Temp Pulse Resp BP Pulse Ox 05/30/19 13:24 99.0 F 60 16 158/99 97 05/30/19 12:20 98.6 F 60 20 166/103 97 - Laboratory Result Diagrams: 05/30/19 14:38 05/30/19 14:38 Lab Statement: Any lab studies that have been ordered have been reviewed, and results considered in the medical decision making process. - CT Brain CT CT Interpretation Completed By: Radiologist Summary of CT Findings: Impression shows no acute intracranial pathology. An ED physician has reviewed this report. Headache Course/Dx - Course Assessment/Plan: This patient is a 68-year-old male who presents to the emergency department with a chief complaint of having a headache. He denies any fevers, denies any neck pain, and he has no meningeal signs upon the physical exam. Blood tests without any significant abnormality except for INR 1.13 and PTT of 45. Urinalysis is negative for UTI. Head CT impression: No acute pathology. In the ED course the patient was given labetalol for the hypertension. The patient was given Benadryl and Reglan for headache. The patient continues to have a headache therefore the patient was given morphine. I discussed my physical exam and findings with Dr. Cardona from the hospital services who accepted the patient for admission. - Diagnoses Provider Diagnoses: Headache - Physician Notifications Discussed Care Of Patient With: Rachel Cardona - Hospitalist Time Discussed With Above Provider: 16:27 Instructed by Provider To: Admit As Inpatient - Talked to Dr. Cardona at 1627, she accepted the patient for admission. Admit/Transition Orders Completed By ED Provider: Yes Discharge ED - Sign-Out/Discharge Documenting (check all that apply): Patient Departure - admit - Discharge Plan Condition: Stable Disposition: ADMITTED TO [facility] Referrals: Gurpreet Gray, [Primary Care Provider] - - Attestation Statements Document Initiated by Scribe: Yes Documenting Scribe: Alcides Boone Provider For Whom Lois is Documenting (Include Credential): Tima Alan MD. Scribe Attestation: Alcides Diamond, scribed for Tima Alan MD. on 05/30/19 at 8012. Status of Scribe Document: Ready
[2019-05-30 15:04] LABS: ABS Basophils 0.1 10^3/ul (0-0.2); ABS Eosinophils 0.1 10^3/ul (0-0.6); ABS Lymphocytes 1.2 10^3/ul (1.0-4.8); ABS Monocytes 0.6 10^3/ul (0-0.8); ABS Neutrophils 5.2 10^3/ul (1.5-7.7); ABS Nucleated RBC 0.1 10^3/ul; Eosinophil % 1.5 %; Hematocrit 52 % (42-52); Hemoglobin 17.5 g/dL (14.0-18.0); Lymphocyte % 16.2 %; Mean Corpuscular HGB Conc 34 g/dL (31-36); Mean Corpuscular Hemoglobin 30 pg (27-31); Mean Corpuscular Volume 89 fL (80-94); Mean Platelet Volume 7.3 fL (7.4-10.4); Nucleated Red Blood Cells % 0.9; Platelet Count 151 10^3/uL (150-450); Red Blood Count 5.85 10^6 /uL (4.18-5.48); Red Cell Distribution Width 15 % (10-15); White Blood Count 7.2 10^3/uL (3.5-10.8)
[2019-05-30 15:15] LABS: Albumin 4.3 g/dL (3.2-5.2); Albumin/Globulin Ratio 1.4 (1-3); BUN/Creatinine Ratio 10.9 (8-20); Calcium 9.4 mg/dL (8.6-10.3); EGFR African American 99.3 (>60); EGFR Non-African American 82.1 (>60); Total Bilirubin 0.8 mg/dL (0.2-1.0); Total Protein 7.3 g/dL (6.4-8.9)
[2019-05-30 15:39] LABS: INR 1.13 (0.82-1.09)
[2019-05-30 15:49] LABS: Urine Appearance Clear; Urine Bilirubin Negative (Negative); Urine Blood Negative (Negative); Urine Color Yellow; Urine Glucose Negative (Negative); Urine Ketones Negative (Negative); Urine Nitrite Negative (Negative); Urine Protein Negative (Negative); Urine Specific Gravity 1.009 (1.010-1.030); Urine Urobilinogen Negative (Negative)
[2019-05-30] MEDS ORDERED: Morphine 4 MG/ML VIAL (1 ml) 4 MG/ML VIAL IV ONE (15:54)
[2019-05-30] MEDS ORDERED: NS 0.9% 1000 ML** 1,000 ML IV SCH (18:00)
[2019-05-30] MEDS ORDERED: Magnesium Sulfate 1 GM IV* 1 GM/100 ML BAG IV ONE (18:02)
[2019-05-30] MEDS: Acetaminophen TAB* 325 MG PO PRN (20:29)
[2019-05-30] MEDS: Dabigatran CAP(NF) 150 MG CAP PO SCH (20:29)
[2019-05-30] MEDS: Sotalol TAB* 80 MG PO SCH (21:38)
[2019-05-30] MEDS ORDERED: Tamsulosin CAP* 0.4 MG PO SCH (22:00)
--- NOTE | 2019-05-30 23:28 | HP ---
HISTORY AND PHYSICAL: DATE OF ADMISSION: 05/30/19 PRIMARY CARE PROVIDERS: Dr. Gurpreet Gray and Dr. Bowman. ATTENDING PHYSICIAN WHILE IN THE HOSPITAL: Dr. Angela Moon * (dictated by Beba Bowles NP). CHIEF COMPLAINT: Headache, hypertension. HISTORY OF PRESENT ILLNESS: Mr. Wesley is a 68-year-old male with a past medical history significant for atrial flutter, history of sick sinus syndrome; status post pacemaker placement, obstructive sleep apnea; for which he wears BiPAP, factor XI deficiency, hypertension, degenerative disk disease, and BPH who presented to the emergency room with complaints of headache and high blood pressure. The patient reports that he had a cardioversion on Sunday. He was feeling well. He felt well most of the day Sunday. He does report Sunday evening, he started with a headache that has progressively worsened since Sunday. The patient does report mild sensitivity to light. No sensitivity to noise. He does report that with standing, his headache does become worse. It is a throbbing, pounding-type headache. He says it starts in his neck and radiates to the posterior head to the top of his head. He also reports that his diastolic blood pressure was significantly elevated. The patient does report that he had a similar episode back in October that was apparent after having a cardioversion in October. The patient does report that approximately a day later, he did develop a headache. He did report that his headache lasted a shorter period of time after that cardioversion. The patient also did have a tick removed from his chest while in the emergency room today. Due to the patient's intractable headache, Hospital Medicine was asked to see and evaluate him for admission. While in the emergency room, the patient had routine lab work drawn which was essentially within normal limits. He had a CT of the brain, which showed no acute disease. Due to his intractable headache, Hospital Medicine was asked to evaluate for admission. PAST MEDICAL HISTORY: Significant for: 1. Atrial flutter/atrial fibrillation. 2. Sick sinus syndrome, status post pacemaker. 3. Obstructive sleep apnea, wears BiPAP. 4. Factor XI deficiency. 5. Hypertension. 6. Degenerative disk disease. 7. BPH. 8. Cardioversion on 05/26/19. PAST SURGICAL HISTORY: 1. Pacemaker placement. 2. Bilateral hip replacements. 3. Carpal tunnel. 4. Arthroscopy of both knees. 5. Right total knee replacement. 6. Left shoulder surgery. 7. Tonsillectomy. 8. Aortic valve replacement with bovine valve and pacemaker placement on . HOME MEDICATIONS: Include: 1. Testosterone 1.5 mL q.21 days IM. 2. Tamsulosin 0.4 mg p.o. daily. 3. Omeprazole 40 mg p.o. daily. 4. Furosemide 20 mg p.o. daily. 5. Sotalol 80 mg p.o. b.i.d. 6. Pradaxa 150 mg p.o. b.i.d. 7. Ramipril 20 mg p.o. daily. 8. Metoprolol 100 mg p.o. daily. ALLERGIES: ADHESIVE, PENICILLIN, TORSEMIDE, mesh stitching, and Steri-Strips. FAMILY HISTORY: Mother with a history of diabetes and coronary artery disease. Father with prostate cancer. SOCIAL HISTORY: The patient is a nonsmoker. Denies any alcohol or illicit drug use. 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 Surrogate decision maker in the event he is unable to make his own decisions is his . He is a full code. REVIEW OF SYSTEMS: He denies any fever, chills, unintended weight loss, chest pain or edema, cough, hemoptysis, or shortness of breath. Denies any nausea, vomiting, diarrhea, abdominal pain, gross hematuria, dysuria, focal weakness, sensory loss, visual complaints, dysphagia, arthralgias, myalgias, rashes, lesions, open sores, psychosis, or anxiety. He does report a 3-pound weight gain and flushed face and a severe headache that starts in his neck, radiates to the posterior head and then to the frontal region on top of his head. It is pounding and throbbing in nature, worse with movement and slight light sensitivity. PHYSICAL EXAMINATION GENERAL: At this time, Mr. Wesley is a 68-year-old male. He is resting comfortably on the stretcher in the emergency room. He is in no acute distress. VITAL SIGNS: Blood pressure 130/80, heart rate 76, respirations 19, O2 saturation 94%, temperature was 98.6. HEENT: Head is atraumatic, normocephalic. Eyes: Sclerae do have fatty tumors noted to both sclerae. Pupils are equal and reactive to light. Mucous membranes are moist. NECK: Supple. LUNGS: Clear to auscultation bilaterally. No wheezes, rales, or rhonchi. CARDIAC: S1, S2. Regular rate and rhythm. No murmurs, rubs, or gallops. ABDOMEN: Soft and nontender. Bowel sounds are present x4. EXTREMITIES: He is able to move all 4 extremities. There is no clubbing or cyanosis. NEUROLOGIC: The patient is awake, alert, and oriented x3. Speech is clear. Thought process is intact. [id number] is intact. Handgrips are equal. There is no pronator drift. There is no leg drift. Sensation is intact to the upper and lower extremities. Smile is equal. There is no facial asymmetry. Tongue is midline. SKIN: Intact. DIAGNOSTIC STUDIES/LAB DATA: WBCs are 7.2, RBCs 5.85, hemoglobin 17.5, hematocrit is 52, platelet count 151. INR was 1.13. Carbon monoxide was less than 4. BMP was within normal limits. Lactic acid was 0.7. Urine was within normal limits with the exception of specific gravity is 1.009. The patient had a CT of the brain, radiologist's impression: No active intracranial pathology. He had an electrocardiogram, which showed sinus rhythm with paced beats. ASSESSMENT AND PLAN: Mr. Wesley is a 68-year-old male with a past medical history significant for hypertension, atrial flutter, atrial fibrillation, sick sinus syndrome; status post pacemaker, obstructive sleep apnea, factor XI deficiency, hypertension, degenerative disk disease, and BPH who presented to the emergency room with complaints of headache and high blood pressure. He will be admitted under observation for: 1. Headache. The patient is status post cardioversion and had a similar episode after cardioversion in October 2018, though this time his headache has lasted longer. He did receive Reglan, morphine, IV fluids, and Benadryl in the emergency room with some relief of his headache. I will continue him on IV fluids overnight. I will give him some magnesium. He can have Tylenol as needed for the headache. It is unclear at this time the cause of the patient's headache. he does have some symptomatology of migraine headaches with mild light sensitivity and sensitivity to sound. His CT of the brain is normal. At this time, we will treat his symptomatology. Should the patient develop any neurological deficits, I will get neurology involved. 2. Hypertension. The patient should continue on metoprolol and ramipril as previously prescribed. 3. History of atrial fibrillation and atrial flutter. He will continue on Pradaxa, metoprolol, and sotalol as previously prescribed. 4. BPH. He will continue on Flomax. 5. Gastroesophageal reflux disease. He should continue on Prilosec 40 mg p.o. daily. 6. FEN. He can have a heart-healthy, decaf-okay diet. 7. Code status. He is a full code. 8. DVT prophylaxis. He is on Pradaxa. TIME SPENT: Time spent on this admission was 60 minutes, greater than half that time was spent at the bedside reviewing events leading thus far to his hospitalization, performing physical exam, and reviewing my plan of care. I have discussed this with my attending, Dr. Angela Moon; she is in agreement with my plan. BEBA BOWLES, NAN [id number]/CPS #: [id number] MARY
[2019-05-31] MEDS: Acetaminophen TAB* 325 MG PO PRN ×3 (03:38→13:48)
[2019-05-31 06:04] LABS: ABS Basophils 0.1 10^3/ul (0-0.2); ABS Eosinophils 0.1 10^3/ul (0-0.6); ABS Lymphocytes 1.1 10^3/ul (1.0-4.8); ABS Monocytes 0.8 10^3/ul (0-0.8); ABS Neutrophils 4.8 10^3/ul (1.5-7.7); Eosinophil % 1.6 %; Hematocrit 48 % (42-52); Hemoglobin 16.4 g/dL (14.0-18.0); Lymphocyte % 15.9 %; Mean Corpuscular HGB Conc 34 g/dL (31-36); Mean Corpuscular Hemoglobin 30 pg (27-31); Mean Corpuscular Volume 88 fL (80-94); Mean Platelet Volume 7.2 fL (7.4-10.4); Nucleated Red Blood Cells % 0.2; Platelet Count 141 10^3/uL (150-450); Red Blood Count 5.44 10^6 /uL (4.18-5.48); Red Cell Distribution Width 15 % (10-15); White Blood Count 6.8 10^3/uL (3.5-10.8)
[2019-05-31 06:14] LABS: BUN/Creatinine Ratio 16.8 (8-20); Calcium 8.6 mg/dL (8.6-10.3); EGFR African American 95.7 (>60); EGFR Non-African American 79.1 (>60); Potassium 3.6 mmol/L (3.5-5.0)
[2019-05-31] MEDS: Dabigatran CAP(NF) 150 MG CAP PO SCH (08:57)
[2019-05-31] MEDS: Sotalol TAB* 80 MG PO SCH (08:57)
[2019-05-31] MEDS ORDERED: Pantoprazole TAB * 40 MG TAB PO SCH (09:00)
[2019-05-31] MEDS ORDERED: Ramipril CAP* 10 MG PO SCH (09:00)
[2019-05-31] MEDS ORDERED: Metoprolol Succinate XL TAB* 100 MG PO SCH (09:00)
[2019-05-31 10:26] LABS: Magnesium 2.2 mg/dL (1.9-2.7)
[2019-05-31 11:41] VITALS: BP 137/71
[2019-05-31] MEDS ORDERED: Potassium Chlor TAB* 20 MEQ TAB.ER PO ONE (13:10)
--- NOTE | 2019-05-31 22:57 | DS ---
DISCHARGE SUMMARY: DATE OF ADMISSION: 05/30/19 DATE OF DISCHARGE: 05/31/19 PROVIDER: Beba Bowles NP PRIMARY CARE PROVIDER: Dr. Gurpreet Gray. ATTENDING PHYSICIAN WHILE IN THE HOSPITAL: Dr. Rachel Connors * (dictated by Beba Bowles NP). PRIMARY DIAGNOSES: 1. Headache. 2. Hypertension. SECONDARY DIAGNOSES: 1. Atrial flutter. 2. Obstructive sleep apnea. 3. Hypertension. 4. Degenerative disk disease. 5. BPH. STUDIES COMPLETED WHILE IN THE HOSPITAL: He had a CT of the brain, radiologist' s impression: No acute intracranial pathology, and an electrocardiogram, which showed sinus rhythm with paced beats. T-wave inversions in II, III, V1, 2, 3, 4 ,5 aVL and lead I. DISCHARGE MEDICATIONS: New medication: 1. Magnesium oxide 400 mg one tablet p.o. daily. Continued Home Medications. 1. Testosterone 1.5 mL q. 21 days. 2. Tamsulosin 0.4 mg p.o. daily. 3. Omeprazole 40 mg p.o. daily. 4. Furosemide 20 mg p.o. daily. 5. Sotalol 80 mg p.o. b.i.d. 6. Pradaxa 150 mg p.o. b.i.d. 7. Ramipril 20 mg p.o. daily. 8. Metoprolol 100 mg p.o. daily. HISTORY OF PRESENT ILLNESS AND HOSPITAL COURSE: Mr. Wesley is a 68-year-old male with a past medical history significant for atrial flutter; history of sick sinus syndrome, status post pacemaker placement; obstructive sleep apnea, who wears BiPAP; factor XI deficiency; hypertension; degenerative disk disease; BPH who presented to the emergency room with complaints of headache and high blood pressure. The patient reports that he had a cardioversion on Sunday and reports Sunday evening he developed a headache and has had progressively worsening headache since Sunday. The patient does report that he had a similar episode after a prior cardioversion in October where he had a headache but his headache at that time did not last as long as this one. While in the emergency room, the patient did receive Benadryl, Reglan, IV fluids, and morphine, which improved his headache some. The patient was admitted overnight and continued on IV fluids. He did get 1 g of magnesium and his headache resolved after the gram of magnesium. He did have a mild headache approximately 5 a.m. with relief on Tylenol. Given that the patient's headache has resolved, his blood pressure has normalized. The patient is stable for discharge home. REVIEW OF SYSTEMS: The patient denies any fever, chills, unintended weight loss. He denies any chest pain or shortness of breath. He currently denies any headache. He denies any abdominal pain, nausea, vomiting, or diarrhea. He denies any urinary frequency or urgency. PHYSICAL EXAMINATION: General: At this time, Mr. Wesley is alert and oriented, resting in his bed in his hospital room. He is in no acute distress. Vital Signs: Blood pressure 137/71, heart rate 64, respirations 18, O2 saturation 95%, temperature was 98.2. HEENT: Head is atraumatic, normocephalic. Eyes: EOMs are intact. He does have fatty tumors noted to both bilateral sclerae that are chronic. Mucous membranes are moist. Neck is supple. Lungs are clear to auscultation bilaterally. No wheezes, rales, or rhonchi. Cardiac: S1, S2. Regular rate and rhythm. No murmurs, rubs, or gallops. Abdomen is soft and nontender. Bowel sounds are present x4. Extremities: He is able to move all 4 extremities. There is no clubbing or cyanosis. Neurologic: He is awake, alert, and oriented x3. Speech is clear. Thought process is intact. There are no gross focal deficits. The patient was ambulatory in the solo without any exacerbation of any headaches. The patient denies any visual changes, throbbing headache, or dizziness. At this time, Mr. Wesley is stable for discharge home. DISCHARGE PLAN: Mr. Wesley will be discharged home. Activity as tolerated. 1. Headache. I suspect this headache does exhibit some features of migraine type headaches as the patient does appear to be sensitive to light and sound. I would recommend that he follow up with his primary care provider for further evaluation and recommendations on further headache management. The differential may also procedural due to the fact these have occurred after his cardioversion and exhibit the same characteristics, I suspect this could also be related to medications from his cardioversion., but his etiology of headache is unclear at this time. I will prescribe him magnesium oxide 400 mg p.o. daily. The patient can take Tylenol 650 mg every 4 to 6 hours as needed for headache. 2. Atrial fibrillation. The patient should continue on his medications as previously prescribed. 3. Hypertension. He should continue on his medications as previously prescribed. The patient should follow up with his primary care provider in 4 to 7 days for further recommendations on headache management. The patient was instructed to return to the emergency room for any chest pain , shortness of breath, dizziness, lightheadedness, severe uncontrolled headache , any changes in his vision, weakness on one side, slurred speech, or any other concerning symptoms. The patient verbalized understanding. CONDITION AT DISCHARGE: Stable. DISPOSITION AT DISCHARGE: Home. TIME SPENT: Time spent on this discharge was 45 minutes, greater than half the time was spent at the bedside reviewing discharge plans and instructions. BEBA BOWLES NP [id number]/[facility] #: [id number] MARY
== END 2019-05-31 14:05 | disposition home or self-care (01) ==
LOC: ED 12:12 → MED 17:48
PROVIDERS: ADMIT Hospitalist; ATTEND Internal Medicine
DX: R51 Headache (principal); I10 Essential (primary) hypertension; I48.92 Unspecified atrial flutter; G47.33 Obstructive sleep apnea (adult) (pediatric); M51.34 Other intervertebral disc degeneration, thoracic region; N40.0 Benign prostatic hyperplasia without lower urinary tract symptoms; Z79.899 Other long term (current) drug therapy; D68.1 Hereditary factor XI deficiency; Z95.0 Presence of cardiac pacemaker; I49.5 Sick sinus syndrome; Z88.0 Allergy status to penicillin; Z95.2 Presence of prosthetic heart valve; Z87.442 Personal history of urinary calculi; F32.9 Major depressive disorder, single episode, unspecified
CPT/HCPCS: 36415; 70450; 80048; 80053; 81003; 82375; 83605; 83735; 85025; 85610; 85730; 93005; 96365; 96375; 99284; A9270-GY; G0378; J1200; J2270; J2765; J3475

== ENCOUNTER 2024-01-17 16:44 | Observation (INO) ==
[2024-01-17 17:10] LABS: ABS Basophils 0.1 10^3/uL (0.0-0.1); ABS Eosinophils 0.1 10^3/uL (0.0-0.5); ABS Lymphocytes 1.3 10^3/uL (1.0-4.8); ABS Neutrophils 8.2 10^3/uL (1.5-7.6); ABS Nucleated RBC 0.02 10^3/ul; Eosinophil % 1.1 %; Hematocrit 45.8 % (38-53); Hemoglobin 15.7 g/dL (13.2-16.3); Lymphocyte % 12.3 %; Mean Corpuscular Hemoglobin 30.7 pg (27-33); Mean Corpuscular Hgb Conc 34.3 g/dL (31-36); Mean Corpuscular Volume 89.7 fL (80-97); Mean Platelet Volume 7.3 fL (7.5-11.2); Nucleated Red Blood Cells % 0.2 %/100WBC (0.0-0.8); Platelet Count 138 10^3/uL (150-450); Red Blood Count 5.11 10^6/uL (4.06-5.63); Red Cell Distribution Width 14.9 % (12-17); White Blood Count 10.7 10^3/uL (3.6-10.2)
[2024-01-17 17:17] LABS: INR 1.16 (0.83-1.13)
[2024-01-17 18:19] LABS: Albumin 4.1 g/dL (3.2-5.2); Albumin/Globulin Ratio 1.7 (1-3); Calcium 9.2 mg/dL (8.6-10.3); Creatinine, Serum 1.42 mg/dL (0.67-1.17); Globulin 2.4 g/dL (2-4); Potassium 4.9 mmol/L (3.5-5.0); Total Bilirubin 1.3 mg/dL (0.2-1.0); Total Protein 6.5 g/dL (6.4-8.9); eGFR CKD-EPI 52.5 (>60)
[2024-01-17 18:46] LABS: High Sensitivity Troponin 1 Hr 258 pg/mL (<20)
[2024-01-17 20:49] LABS: Magnesium 2.3 mg/dL (1.9-2.7)
[2024-01-17] MEDS: Furosemide 40 mg/4 ml IV VIAL IV ONE (21:30)
[2024-01-18] MEDS ORDERED: Nitroglycerin 0.3 mg TAB SL PRN (02:41)
[2024-01-18 02:53] LABS: HDL Cholesterol 29.5 mg/dL
[2024-01-18 03:07] LABS: TSH Ultra Thyroid Stim Horm 3.59 mcIU/mL (0.34-5.60)
[2024-01-18 05:46] LABS: Urine Appearance Clear; Urine Bilirubin Negative (Negative); Urine Blood Negative (Negative); Urine Color Light-Yellow; Urine Glucose Negative (Negative); Urine Ketones Trace (Negative); Urine Nitrite Negative (Negative); Urine Protein Negative (Negative); Urine Specific Gravity 1.011 (1.002-1.030); Urine Urobilinogen Negative (Negative)
[2024-01-18 05:48] LABS: ABS Basophils 0.1 10^3/uL (0.0-0.1); ABS Eosinophils 0.1 10^3/uL (0.0-0.5); ABS Lymphocytes 0.9 10^3/uL (1.0-4.8); ABS Monocytes 0.8 10^3/uL (0.0-1.1); ABS Neutrophils 6.9 10^3/uL (1.5-7.6); ABS Nucleated RBC 0.01 10^3/ul; Eosinophil % 0.9 %; Hematocrit 43.5 % (38-53); Hemoglobin 15.1 g/dL (13.2-16.3); Lymphocyte % 10.7 %; Mean Corpuscular Hemoglobin 30.9 pg (27-33); Mean Corpuscular Hgb Conc 34.7 g/dL (31-36); Mean Platelet Volume 7.6 fL (7.5-11.2); Nucleated Red Blood Cells % 0.1 %/100WBC (0.0-0.8); Platelet Count 129 10^3/uL (150-450); Red Blood Count 4.89 10^6/uL (4.06-5.63); Red Cell Distribution Width 14.8 % (12-17); White Blood Count 8.8 10^3/uL (3.6-10.2)
[2024-01-18 06:29] LABS: Phosphorus 4.5 mg/dL (2.5-5.0); Potassium 4.2 mmol/L (3.5-5.0)
[2024-01-18 06:30] LABS: Calcium 8.6 mg/dL (8.6-10.3); Creatinine, Serum 1.17 mg/dL (0.67-1.17); eGFR CKD-EPI 66.2 (>60)
[2024-01-18 06:31] LABS: Magnesium 2.2 mg/dL (1.9-2.7)
[2024-01-18] MEDS: Furosemide 40 mg/4 ml IV VIAL IV SCH (09:07)
[2024-01-18] MEDS: Dabigatran 150 mg CAP (NF) PO SCH (09:08)
[2024-01-18] MEDS ORDERED: Sulfur Hexaflouride MICROSPHR 25 MG VIAL ONE (10:31)
[2024-01-18] MEDS ORDERED: Naloxone 0.4 mg VIAL 0.4 mg/ml 1 ml VIAL ONE (14:34)
[2024-01-18] MEDS ORDERED: Flumazenil 0.5 mg/5 ml 0.1 MG/ML 5 ml VIAL ONE (14:34)
[2024-01-18] MEDS ORDERED: fentaNYL 100 mcg/2 ml 50 MCG/ML VIAL ONE (14:34)
[2024-01-18] MEDS ORDERED: Midazolam 5 mg/5 ml VIAL 1 mg/ml 5 ml VIAL (5 mg) ONE (14:37)
[2024-01-18] MEDS: fentaNYL 100 mcg/2 ml 50 MCG/ML VIAL IV SLOW PU ONE (16:51)
[2024-01-18] MEDS: Midazolam 10 mg/10 ml VIAL 1 mg/ml 10 ml VIAL (10 mg) IV SLOW PU ONE (16:52)
[2024-01-18] MEDS: Furosemide 20 mg/2 ml IV VIAL IV ONE (18:17)
[2024-01-18 22:40] VITALS: BP 99/43
== END 2024-01-18 22:41 | disposition short-term general hospital (02) ==
LOC: ED 16:44 → EDHOLD 16:44 → SUATTDRO 01-18 02:03 → MEDTELE 01-18 15:02
PROVIDERS: ADMIT Internal Medicine; ATTEND Internal Medicine